=== PATIENT | female | born 1935 | race Caucasian/White ===

== ENCOUNTER 2018-04-27 19:13 | Inpatient (IN) | payer MEDICARE, OTHER ==
--- NOTE | 2018-04-27 20:00 | ED ---
Palpitations / Dysrhythmia - HPI Summary HPI Summary: This is scribe Kelechi Diaz documenting for attending Ishmael Nichole MD. A 82 y/o female presents to ED c/o generalized sickness and rapid heart rate. As per triage, "Pt brought in by daughter for concerns of "not feeling right" States she's felt "jittery" since this morning. Reports feeling heart racing during dinner time. States she cheched her pulse with an oximeter and states HR 177. States shortly after HR went down to 86". According to the patient she was feeling weak today and experienced intermittent palpitations. Pt denies any chest pain or SOB. As per nursing staff, when attending patient, she had a brief episode of tachycardia of 107 BPM, possible SVT, however, now seems to be regular. PMHx of DM, HTN and high cholesterol. I, Dr. Nichole, personally performed the services described in this documentation as scribed in my presence and it is both accurate and complete. - History of Current Complaint Chief Complaint: EDDysrhythmPalp Time Seen by Provider: 04/27/18 19:41 Hx Obtained From: Patient Onset/Duration: Sudden Onset, Lasting Hours, Still Present Timing: Constant Character: Fast Aggravating: Nothing Alleviating: Nothing Associated Signs & Symptoms: Negative - Allergy/Home Medications Allergies/Adverse Reactions: Allergies Allergy/AdvReac Type Severity Reaction Status Date / Time No Known Allergies Allergy Verified 04/27/18 19:26 PMH/Surg Hx/FS Hx/Imm Hx Endocrine/Hematology History: Reports: Hx Diabetes Cardiovascular History: Reports: Hx Hypertension - Cancer History Hx Chemotherapy: No Hx Radiation Therapy: No Infectious Disease History: No Infectious Disease History: Denies: Traveled Outside the [place] in Last 30 Days - Family History Known Family History: Positive: Hypertension, Diabetes - Social History Alcohol Use: None Substance Use Type: Reports: None Smoking Status (MU): Never Smoked Tobacco Review of Systems Positive: Other - POSITIVE: generalized sickness. Negative: Fever Positive: Other - POSITIVE: fast HR. Negative: Chest Pain Negative: Shortness Of Breath Positive: Weakness All Other Systems Reviewed And Are Negative: Yes Physical Exam - Summary Physical Exam Summary: VITAL SIGNS: Reviewed. GENERAL: Patient is a skinny female who is lying comfortable in the stretcher. Patient is not in any acute respiratory distress. HEAD AND FACE: No signs of trauma. No ecchymosis, hematomas or skull depressions. No sinus tenderness. EYES: PERRLA, EOMI x 2, No injected conjunctiva, no nystagmus. EARS: Hearing grossly intact. Ear canals and tympanic membranes are within normal limits. MOUTH: Oropharynx within normal limits. NECK: Supple, trachea is midline, no adenopathy, no JVD, no carotid bruit, no c- spine tenderness, neck with full ROM. CHEST: Symmetric, no tenderness at palpation LUNGS: Clear to auscultation bilaterally. No wheezing or crackles. CVS: Regular rate and rhythm, S1 and S2 present, no murmurs or gallops appreciated. ABDOMEN: Soft, non-tender. No signs of distention. No rebound no guarding, and no masses palpated. Bowel sounds are normal. EXTREMITIES: FROM in all major joints, no edema, no cyanosis or clubbing. NEURO: Alert and oriented x 3. No acute neurological deficits. Speech is normal and follows commands. SKIN: Dry and warm Triage Information Reviewed: Yes Vital Signs On Initial Exam: Initial Vitals Temp Pulse Resp BP Pulse Ox 98.7 F 88 16 148/46 99 04/27/18 19:21 04/27/18 19:21 04/27/18 19:21 04/27/18 19:21 04/27/18 19:21 Vital Signs Reviewed: Yes Diagnostics - Vital Signs Vital Signs Temp Pulse Resp BP Pulse Ox 04/27/18 19:43 84 25 186/77 96 04/27/18 19:42 88 24 97 04/27/18 19:21 98.7 F 88 16 148/46 99 - Laboratory Result Diagrams: 04/27/18 20:20 04/27/18 20:21 Lab Statement: Any lab studies that have been ordered have been reviewed, and results considered in the medical decision making process. - Radiology CXR Radiology Interpretation Completed By: ED Physician - No acute process. Pending official report. - EKG 1930 Cardiac Rate: Tachycardia - 114 BPM EKG Rhythm: Atrial Fibrillation EKG Interpretation: LBBB Course/Dx - Course Course Of Treatment: A 82 y/o female presents to ED c/o generalized sickness and rapid heart rate. A CXR revealed no acute process. A EKG revealed a A-fib rate of 114 BPM, LBBB. In the ED course, the patient recieved Magnesium Sulfate , Lopressor and Aspirin. Exam was unremarkable. Patient care was discussed with hospitalist, Dr. Farias, who accepts patient for admission. Patient will be admitted with a diagnosis of paroxysmal atrial fibrillation, tachycardia and LBBB. Patient is agreeable with this plan. - Diagnoses Provider Diagnoses: LBBB (left bundle branch block), Paroxysmal atrial fibrillation, Tachycardia - Physician Notifications Discussed Care Of Patient With: Silva Farias Time Discussed With Above Provider: 21:04 Instructed by Provider To: Other - Accepts patient for admission. Discharge - Sign-Out/Discharge Documenting (check all that apply): Patient Departure - ADMIT - Discharge Plan Condition: Stable Disposition: ADMITTED TO [facility] Referrals: Neo Helms MD [Primary Care Provider] -
[2018-04-27] MEDS: Metoprolol Tartrate IV* 1 MG/ML 5 ML VIAL IV ONE ×2 (20:09→20:48)
[2018-04-27 20:51] LABS: ABS Basophils 0 10^3/ul (0-0.2); ABS Eosinophils 0 10^3/ul (0-0.6); ABS Lymphocytes 1.5 10^3/ul (1.0-4.8); ABS Monocytes 0.7 10^3/ul (0-0.8); ABS Neutrophils 4.6 10^3/ul (1.5-7.7); ABS Nucleated RBC 0 10^3/ul; Eosinophil % 0.7 % (0-6); Hematocrit 32 % (35-47); Hemoglobin 10.6 g/dl (12.0-16.0); Lymphocyte % 22.2 % (25-47); Mean Corpuscular HGB Conc 33 g/dl (31-36); Mean Corpuscular Hemoglobin 27 pg (27-31); Mean Corpuscular Volume 82 fL (80-97); Mean Platelet Volume 8.3 um3 (7.4-10.4); Nucleated Red Blood Cells % 0.1; Platelet Count 249 10^3/ul (150-450); Red Blood Count 3.88 10^6/ul (4.00-5.40); Red Cell Distribution Width 16 % (10.5-15); White Blood Count 6.9 10^3/ul (3.5-10.8)
[2018-04-27 20:58] LABS: INR 0.96 (0.77-1.02)
[2018-04-27] MEDS ORDERED: Aspirin 81 mg CHEW TAB* 81 MG TAB.CHEW PO ONE (21:05)
[2018-04-27] MEDS ORDERED: Magnesium Sulf 4 GM/100 ML IV* 4,000 MG/100 ML BAG IVPB ONE (21:08)
[2018-04-27] MEDS ORDERED: Senna TAB PO PRN (21:54)
[2018-04-27] MEDS ORDERED: Docusate CAP* 100 MG PO PRN (21:54)
[2018-04-27] MEDS ORDERED: Ondansetron INJ* 2 MG/ML VIAL IV PRN (21:54)
[2018-04-27] MEDS ORDERED: Acetaminophen TAB* 325 MG PO PRN (21:54)
[2018-04-27] MEDS ORDERED: Al Hydrox/Mg Hydrox/Simet LIQ* 30 ML UDC PO PRN (21:54)
[2018-04-27] MEDS ORDERED: oxyCODONE/Acetamin 5/325 MG* TAB PO PRN (21:57)
[2018-04-27] MEDS ORDERED: Dextrose 50% Syringe 50 ML* 25 GM/50 ML SYRINGE IV PUSH PRN (21:59)
--- NOTE | 2018-04-27 23:25 | HP ---
CC: Neo Helms MD* HISTORY AND PHYSICAL: DATE OF ADMISSION: 04/27/18 TIME OF EVALUATION: 2200. PRIMARY CARE PHYSICIAN: Neo Helms MD CHIEF COMPLAINT: Palpitations and weakness. HISTORY OF PRESENT ILLNESS: This is an 82-year-old female with past medical history of hypertension and diabetes, who presents to the emergency room, was not feeling right with palpitations. She states this morning she felt weak and anxious, jittery. She felt her pulses, in the morning it was in the 80s and then in the evening, after dinner she checked her heart rate because the palpitations had gotten worse and she noticed her heart rate to be 177, which prompted her to come to the emergency room for further evaluation. In the emergency room, the patient was found to have a left bundle branch block with runs of SVT as well. She denies any chest pain or shortness of breath. No lightheadedness, no dizziness. No presyncopal symptoms. She still feels slightly anxious. Three days ago, she had episode of diarrhea after getting constipated and taking some bowel meds that has since resolved. No nausea, vomiting. No abdominal pain. No urinary symptoms. No fevers, no URI symptoms. She is on hydrochlorothiazide and Lasix. She has been on the Lasix for the past 2 to 4 weeks and she has been losing weight with a water pill and her weight was 164 before the Lasix, now it is down to 150. She states she has a remote history of rapid heart rate in the past, otherwise review of systems is negative. In the emergency room, when the patient had a run of what appears to be SVT with aberrancy, the nurse had her bear down and it quickly resolved back into lower heart rate. The patient was also found to have a low magnesium of 1.1 and was started on IV magnesium. PAST MEDICAL HISTORY: 1. History of arthritis. 2. Diabetes. 3. Hypertension. 4. Hyperlipidemia. 5. History of remote rapid heart rate in the past. 6. GERD. MEDICATIONS: 1. Vitamin B12 1000 mg p.o. b.i.d. 2. Iron 18 mg daily. 3. Metformin 1000 mg p.o. b.i.d. 4. Lisinopril/hydrochlorothiazide 20/12.5 tab b.i.d. or 2 tabs in the morning, unclear. 5. Amlodipine 5 mg daily. 6. Aspirin 81 mg daily. 7. Oxycodone/acetaminophen 5/325 one tab every 4 hours as needed. 8. Omeprazole 20 mg daily. 9. Atorvastatin 10 mg daily. 10. Lasix 40 mg half a tab Friday, Friday, Friday. 11. Atenolol half a tab Friday, , Friday. ALLERGIES: No known drug allergies. FAMILY HISTORY: Mother at age 72, father at age 60 from heart attack. SOCIAL HISTORY: The patient lives at home with her . She ambulates with a walker and a cane. Her healthcare proxy is her daughter, Nilam. No smoking, alcohol, or illicit drug use. Code status is full code. REVIEW OF SYSTEMS: A 14-point review of systems as mentioned in the HPI, otherwise negative. PHYSICAL EXAMINATION GENERAL: No acute distress, resting comfortable with both her daughters at the bedside. VITAL SIGNS: Temp is 98.7, pulse rate 83, respiratory rate 20, oxygen saturation 95% on room air, blood pressure 132/74. HEENT: Head: Normocephalic. Pupils are equal and reactive, anicteric. Oropharynx: Mucous membranes are moist. NECK: Supple. No lymphadenopathy. RESPIRATORY: Diminished breath sounds. No wheezes, rhonchi, or rales. CARDIAC: Irregularly irregular rate and rhythm. Soft systolic murmur heard throughout. ABDOMEN: Soft, nontender, nondistended. EXTREMITIES: No clubbing, cyanosis. Trace edema, +1 DPs. NEUROLOGIC: Alert and oriented x3. No gross focal neurologic deficits. DIAGNOSTIC STUDIES/LAB DATA: White count 6.9, hemoglobin 10.6, hematocrit 32, platelets 249. INR is 0.96. , potassium 4.6, chloride 91, bicarb 24, BUN 18, creatinine 0.91, glucose 160, magnesium 1.1. BNP is 304. Troponin 0.01. Radiographic data: Chest x-ray wet read is unremarkable. Some mildly prominent interstitial markings. EKG shows left bundle branch block atrial fibrillation, irregular rhythm with strips that are showing what appears to be SVT with aberrancy. ASSESSMENT AND PLAN: This is an 82-year-old female with past medical history of hypertension and diabetes, who presents to the emergency room with palpitations, found to have left bundle branch block with intermittent runs of supraventricular tachycardia with mag of 1.1. Palpitations. Assessment: This appears to be a new left bundle and atrial fibrillation. I do not have old EKGs to compare to. She does not have any chest pain. She is also having runs of SVT. I suspect that this is related to her low magnesium in the setting of hydrochlorothiazide and Lasix use. Plan: We will admit her to [address] [place] [address] for observation. She has been started on 4 g of mag. We will repeat her mag in the morning, start her on 800 mg of magnesium daily. We will hold her hydrochlorothiazide and her Lasix for now. I discussed more continuous daily dose of atenolol at a lower dose as she states that she was having issues with bradycardia and that is why they did half a dose 3 times a day. We will do the 12.5 daily and watch her heart rate closely. We will hold her amlodipine in the setting of bradycardia and just do beta blockers for now and continue her on the lisinopril for her elevated blood pressure and baby aspirin and continue to trend her troponin. Check an echocardiogram as well. Will hold off anticoagulating her at this time but may need to be. Consider cardiology consultation in the AM. CHRONIC MEDICAL PROBLEMS: 1. Hypertension. As above, going to hold her hydrochlorothiazide and Lasix. Continue lisinopril, hold amlodipine and continue atenolol 12.5 p.o. daily. 2. Diabetes. We will place her on lispro sliding scale. Hold her oral agents. 3. GERD. Continue omeprazole. 4. Hyperlipidemia. Continue atorvastatin. 5. FEN. Place her on a diabetic diet. 6. DVT prophylaxis. The patient scores high risk. Place her on heparin subcu t.i.d. 7. Code status. Full code. PATIENT TIME: Greater than 50 minutes was spent doing the history and physical , more than half the time was spent in direct patient contact. [id number]/[facility] #: [id number] BRYANT
[2018-04-28] MEDS: Heparin VIAL(*) 5000 UNITS/ML VIAL (FIVE THOUSAND) SUBCUT SCH ×4 (00:20→21:14)
[2018-04-28] MEDS: Omeprazole CAP* 20 MG PO SCH (05:54)
[2018-04-28 06:04] LABS: ABS Basophils 0.1 10^3/ul (0-0.2); ABS Eosinophils 0.2 10^3/ul (0-0.6); ABS Monocytes 0.8 10^3/ul (0-0.8); ABS Neutrophils 3.8 10^3/ul (1.5-7.7); ABS Nucleated RBC 0 10^3/ul; Eosinophil % 2.3 % (0-6); Hematocrit 35 % (35-47); Hemoglobin 11.7 g/dl (12.0-16.0); Mean Corpuscular HGB Conc 33 g/dl (31-36); Mean Corpuscular Hemoglobin 27 pg (27-31); Mean Corpuscular Volume 83 fL (80-97); Mean Platelet Volume 7.8 um3 (7.4-10.4); Nucleated Red Blood Cells % 0; Platelet Count 258 10^3/ul (150-450); Red Blood Count 4.25 10^6/ul (4.00-5.40); Red Cell Distribution Width 16 % (10.5-15); White Blood Count 6.8 10^3/ul (3.5-10.8)
[2018-04-28 06:26] LABS: EGFR Non-African American 65.7 (>60)
--- NOTE | 2018-04-28 07:38 | RAD ---
HISTORY: weakness COMPARISONS: None VIEWS: 1: frontal portable view of the chest at 8:40 PM. The patient is slightly obliqued to the left. FINDINGS: LINES AND TUBES: None. CARDIOMEDIASTINAL SILHOUETTE: The cardiac silhouette is enlarged. The cardiomediastinal silhouette is otherwise normal for portable technique. PLEURA: The costophrenic angles are sharp. No pleural abnormalities are noted. LUNG PARENCHYMA: The lungs are clear. ABDOMEN: The upper abdomen is clear. There is no subphrenic gas. BONES AND SOFT TISSUES: Degenerative changes are noted of the shoulders and spine. IMPRESSION: CARDIOMEGALY. NO ACTIVE CARDIOPULMONARY DISEASE. R2
[2018-04-28] MEDS ORDERED: Atenolol TAB* 25 MG PO SCH (09:00)
[2018-04-28] MEDS ORDERED: amLODIPine TAB* 5 MG PO SCH (09:00)
[2018-04-28] MEDS: Insulin LISPRO* 1 UNITS UNIT SUBCUT SCH ×3 (09:48→18:13)
[2018-04-28] MEDS: Lisinopril TAB* 10 MG PO SCH (10:01)
[2018-04-28] MEDS: Aspirin 81 mg CHEW TAB* 81 MG TAB.CHEW PO SCH (10:01)
[2018-04-28] MEDS: Metoprolol Tartrate TAB* 25 MG PO SCH ×2 (10:02→21:14)
[2018-04-28] MEDS: Magnesium Oxide TAB* 400 MG PO SCH (10:02)
--- NOTE | 2018-04-28 10:16 | PN ---
Subjective Date of Service: 04/28/18 Interval History: Pt c/o fast HR x 48H. Noted to be in HR in 160's when she is ambulatory(telem shows SVT vs. A. flutter). no c/o CP/SOB. Had been on Lasix 3-4 seeks total due to leg edema and had lost total of 20 lbs Objective Active Medications: Acetaminophen (Tylenol Tab*) 650 mg PO Q4H PRN PRN Reason: FEVER/PAIN Al Hydrox/Mg Hydrox/Simethicone (Maalox Plus*) 30 ml PO Q6H PRN PRN Reason: INDIGESTION Aspirin (Aspirin 81 Mg Chew Tab*) 81 mg PO DAILY [facility] Last Admin: 04/28/18 10:01 Dose: 81 mg Atorvastatin Calcium (Lipitor*) 10 mg PO 1700 [facility] Dextrose (D50w Syringe 50 Ml*) 12.5 gm IV PUSH .FOR FS < 60 - SS PRN PRN Reason: FS < 60 Docusate Sodium (Colace Cap*) 100 mg PO BID PRN PRN Reason: CONSTIPATION Heparin Sodium (Porcine) (Heparin Vial(*)) 5,000 units SUBCUT Q8HR [facility] Last Admin: 04/28/18 05:54 Dose: 5,000 units Insulin Human Lispro (Humalog*) 0 units SUBCUT AC [facility]; Protocol Last Admin: 04/28/18 09:48 Dose: 4 units Lisinopril (Prinivil Tab*) 20 mg PO DAILY [facility] Last Admin: 04/28/18 10:01 Dose: 20 mg Magnesium Oxide (Magox 400 Tab*) 800 mg PO DAILY [facility] Last Admin: 04/28/18 10:02 Dose: 800 mg Metoprolol Tartrate (Lopressor Tab*) 12.5 mg PO Q12HR [facility] Last Admin: 04/28/18 10:02 Dose: 12.5 mg Omeprazole (Prilosec Cap*) 20 mg PO 0600 [facility] Last Admin: 04/28/18 05:54 Dose: 20 mg Ondansetron HCl (Zofran Inj*) 4 mg IV Q4H PRN PRN Reason: NAUSEA/VOMITING Oxycodone/Acetaminophen (Percocet 5/325 Tab*) 1 tab PO Q4H PRN PRN Reason: PAIN Senna (Senokot Tab*) 1 tab PO BID PRN PRN Reason: CONSTIPATION Vital Signs - 8 hr 04/28/18 04/28/18 03:55 07:36 Temperature 97.7 F 98.3 F Pulse Rate 86 91 Respiratory 16 16 Rate Blood Pressure 150/67 145/59 (mmHg) O2 Sat by Pulse 96 98 Oximetry Oxygen Devices in Use Now: None Appearance: 82 yo F in nAD, aAOx3 Eyes: No Scleral Icterus, PERRLA Ears/Nose/Mouth/Throat: NL Teeth, Lips, Gums, Mucous Membranes Moist Neck: NL Appearance and Movements; NL JVP, Trachea Midline Respiratory: Symmetrical Chest Expansion and Respiratory Effort, Clear to Auscultation Cardiovascular: NL Sounds; No Murmurs; No JVD, RRR Abdominal: NL Sounds; No Tenderness; No Distention, No Hepatosplenomegaly Lymphatic: No Cervical Adenopathy Extremities: No Edema, No Clubbing, Cyanosis Skin: No Rash or Ulcers, No Nodules or Sclerosis Neurological: Alert and Oriented x 3, NL Muscle Strength and Tone Result Diagrams: 04/28/18 05:48 04/28/18 05:48 Assess/Plan/Problems-Billing Assessment: 82 yo F with h/o "fast HR" several years ago, HTN, DM2 was placed on Lasix approx 3 weeks ago and now presents with episodes of tachycardia and new LBBB - Patient Problems (1) Tachycardia Comment: appears to be either SVT or A. flutter Echo pending consulted Dr. Phillip Mendieta repleted Atenolol d/c'd and started lopressor BID (2) LBBB (left bundle branch block) Comment: unknow baseline, records requested (3) HTN (hypertension) Comment: controlled with lisinopril Norvasc stopped (4) DM2 (diabetes mellitus, type 2) Comment: metformin held, cont ISS (5) Electrolyte abnormality Comment: hypomagnesemia and hyponatremia-consequence of diuresis Lasix stopped. Na improving Mg repleted (6) DVT prophylaxis Comment: HSQ Status and Disposition: OBV will be changed to inpatient
--- NOTE | 2018-04-28 12:25 | ECHO ---
Patient: SALMA PADILLA [facility] Rec#: [id number] : 1935 Date: 04/28/2018 Age: 82y Height: 155 cm / 61.0 in Weight: 68 kg / 149.9 lbs Sex: F BSA: 1.67 Room#: [facility] Admit Date#: 04/27/2018 Type: Inpatient Referring: Silva Farias Reading: Osmel Fisher MD [employer]: [place] RDCS CC: Neo Helms MD Transthoracic Echocardiogram Indication: Abnormal EKG, SVT BP: 150/67 HR: 100 Rhythm: Tachycardia Findings History: Soft systolic murmur, DM, HTN, HLD. Technical Comments: The study quality is fair. Completed at 1020. Left Ventricle: The left ventricular chamber size is normal. Mild concentric left ventricular hypertrophy is observed. Mild global hypokinesis of the left ventricle is observed. There is mildly decreased left ventricular systolic function. The estimated ejection fraction is 45-50%. There is a left ventricular septal wall motion abnormality observed, possibly due to the presence of a left bundle branch block. The assessment of diastolic function is non-diagnostic. Left Atrium: The left atrium is mildly dilated. Right Ventricle: Moderator Band present. The right ventricular cavity size is normal. The right ventricular global systolic function is low normal. Right Atrium: The right atrium is moderately dilated. Aortic Valve: The aortic valve is trileaflet. The aortic valve leaflets are mildly thickened. There is no evidence of aortic regurgitation. There is no evidence of aortic stenosis. Mitral Valve: There is mitral annular calcification. The mitral valve leaflets are mildly thickened. There is mild to moderate mitral regurgitation. There is no evidence of mitral stenosis. Tricuspid Valve: The tricuspid valve leaflets are normal. There is mild to moderate tricuspid regurgitation. The right ventricular systolic pressure is estimated at 44 mmHg. There is evidence of mild to moderate pulmonary hypertension. There is no tricuspid stenosis. Pulmonic Valve: The pulmonic valve appears normal. There is a trace pulmonic regurgitation. There is no pulmonic stenosis. Pericardium: There is no significant pericardial effusion. Aorta: There is no dilatation of the ascending aorta. There is no dilatation of the aortic arch. The aortic root is normal in size. Pulmonary Artery: The main pulmonary artery appears normal. Venous: The inferior vena cava appears normal in size. There is a greater than 50% respiratory change in the inferior vena cava dimension. Summary: There was not any prior study for comparison. Conclusions Mild global hypokinesis of the left ventricle is observed. There is mildly decreased left ventricular systolic function. The estimated ejection fraction is 45-50%. There is a left ventricular septal wall motion abnormality observed, possibly due to the presence of a left bundle branch block. The right ventricular global systolic function is low normal. There is no evidence of aortic stenosis. There is mild to moderate mitral regurgitation. There is mild to moderate tricuspid regurgitation. There is evidence of mild to moderate pulmonary hypertension. There is no significant pericardial effusion. Measurements Name Value Normal Range RVIDd (AP) 2D 3.5 cm (0.9 - 2.6) RVDdMajor (2D) 4.3 cm (2.2 - 4.4) RAd ISD 4CH 5.8 cm (3.4 - 4.9) RA (A4C)W 4.5 cm (2.9 - 4.6) IVSd (2D) 1.3 cm (0.6 - 1) LVPWd (2D) 1.1 cm (0.6 - 1) LVIDd (2D) 4.1 cm (3.6 - 5.4) LVIDs (2D) 2.7 cm - LV FS (2D) 34 % (25 - 45) Aortic Annulus 2 cm (1.4 - 2.6) Ao root diameter (2D) 3 cm (2.1 - 3.5) Ascending Ao 2.9 cm (2.1 - 3.4) Aortic arch 2.3 cm (1.8 - 3.4) LA dimension (AP) 2D 4.3 cm (2.3 - 3.8) LAd ISD 4CH 5.5 cm (2.9 - 5.3) LA ISD 4CH W 4.2 cm (2.5 - 4.5) Name Value Normal Range LA ESV BP (A/L) index 35 ml/m2 - Name Value Normal Range MV E-wave Vmax 1 m/sec - MV deceleration time 158 msec - LV septal e' Vmax 0.05 m/sec - LV lateral e' Vmax 0.1 m/sec - LV E:e' septal ratio 20 ratio - LV E:e' lateral ratio 10 ratio - Name Value Normal Range AV Vmax 1.5 m/sec - AV VTI 23.3 cm - AV peak gradient 9 mmHg - AV mean gradient 4 mmHg - LVOT Vmax 1 m/sec - LVOT VTI 17.1 cm - LVOT peak gradient 4 mmHg - LVOT mean gradient 2 mmHg - ALICIA Vmax 0.6 m/sec - Name Value Normal Range TR Vmax 3.2 m/sec - TR peak gradient 41 mmHg - RAP 3 mmHg - RVSP 44 mmHg - IVC diameter 1.9 cm - Name Value Normal Range PV Vmax 1 m/sec - PV peak gradient 4 mmHg -
[2018-04-28] MEDS ORDERED: Atorvastatin* 10 MG TAB PO SCH (17:00)
--- NOTE | 2018-04-28 20:27 | CONS ---
CC: Dr. Neo Helms CARDIOLOGY CONSULTATION: DATE OF CONSULT: 04/28/18 INDICATION FOR CONSULTATION: SVT. HISTORY OF PRESENT ILLNESS: The patient is an 82-year-old female with a history of hypertension and diabetes who was admitted to the hospital with palpitations. The patient states that a couple of wee ks ago, she was having increased edema in her lower extremities. The patient also was having some de gree of bradycardia on her atenolol. The patient was on atenolol for unknown reasons. The patient's atenolol was slowly weaned off and she was started on diuretic therapy. She was originally started on 20 mg every day. She lost about 9 pounds and then her primary care physician instructed her to go down to 20 mg 3 times a week. The patient continued to lose weight with a low dose diuretic. The p atient states that yesterday she was feeling palpitations and lightheaded. Ultimately, she decided t o come to the emergency room. On arrival to the emergency room, she was in wide complex tachycardia that could have been ventricular tachycardia; however, the patient does have an underlying left bundl e-branch block. It was clear that it was an SVT at 170 beats per minute. The patient eventually slo wed down to a normal sinus rhythm at 87 beats per minute. In speaking with the patient today, she porter s no complaints. PAST MEDICAL HISTORY: Significant for diabetes, hypertension, hyperlipidemia, some distant history o f rapid heartbeat. OUTPATIENT MEDICATIONS: 1. Iron tablets 18 mg a day. 2. Metformin 1000 mg b.i.d. 3. Lisinopril and hydrochlorothiazide 20/12.5 mg b.i.d. 4. Amlodipine 5 mg a day. 5. Aspirin 81 mg a day. 6. Omeprazole 20 mg a day. 7. Atorvastatin 10 mg a day. 8. Lasix as directed. ALLERGIES: No known drug allergies. FAMILY HISTORY: Mother at 72 of natural causes. Father at 60 of a heart attack. SOCIAL HISTORY: She lives at home with her . Her daughter is very involved in her care. She denies any alcohol or tobacco use. PHYSICAL EXAM: Height is 5 feet and 1 inch, weight is 152 pounds. Temperature of 97.9, heart rate i s 88, blood pressure 149/88, respiratory rate is 18, oxygen saturation 98% on room air. Sclerae anic teric. Oropharynx is pink without erythema. Carotids are 2+ without bruits. JVD is normal. Thyroi d is normal. Cardiac Exam: S1, S2 without any murmurs, rubs or gallops. PMI is normal. Lungs are c lear to auscultation bilaterally. There is no dullness to percussion. Abdomen is soft, nontender, an d nondistended with normoactive bowel sounds. Extremities show no edema. She has 2+ pulses throughou t. The patient is awake, alert, and oriented. She moves all 4 extremities equally. DIAGNOSTIC STUDIES/LAB DATA: When she arrived, her sodium was 125, potassium 4.6, BUN 18, creatinine 0.9. Her magnesium level was 1.1. Troponin levels were again negative x2. TSH is 0.64. CBC is wi thin normal limits. The patient did get an echocardiogram today which showed low normal LV systolic function, ejection fr action of 45% to 50%. She does have septal asynchrony secondary to her left bundle-branch block. No significant valvular abnormalities. IMPRESSION AND PLAN: An 82-year-old female who was admitted to the hospital with supraventricular ta chycardia or atrial fibrillation at rapid heart rate up to 170 beats per minute. The patient is now in a normal sinus rhythm with left bundle- branch block. She has near normal LV function without any valvular abnormalities. It is my recommendation that the patient be off her atenolol altogether. I think it is reasonable to start amiodarone 200 mg b.i.d. for 7 days and then decrease it to 200 mg on ce a day. This will allow her to have antiarrhythmic effect without having a significant beta blocke r effect. The patient should be on magnesium supplementation. The patient will continue her low dose diuretic, perhaps 10 mg 3 times a week to control her lower extremity edema. The patient will be seen in followup. She will get a Holter monitor in 3 weeks and [facility]. This case was discussed with Dr. Horvath. [id number]/[facility] #: [id number]
[2018-04-28] MEDS: Amiodarone TAB* 200 MG PO SCH (21:13)
--- NOTE | 2018-04-28 21:37 | PN ---
Progress Note - Progress Note Date of Service: 04/28/18 Note: Patient requesting SCDs in place of Heparin SQ. Will change order.
[2018-04-29] MEDS: Omeprazole CAP* 20 MG PO SCH (06:01)
[2018-04-29] MEDS: Magnesium Oxide TAB* 400 MG PO SCH (09:50)
[2018-04-29] MEDS: Aspirin 81 mg CHEW TAB* 81 MG TAB.CHEW PO SCH (09:51)
[2018-04-29] MEDS: Amiodarone TAB* 200 MG PO SCH (09:51)
[2018-04-29] MEDS: Metoprolol Tartrate TAB* 25 MG PO SCH (09:52)
[2018-04-29] MEDS: Lisinopril TAB* 10 MG PO SCH (09:52)
[2018-04-29] MEDS: Insulin LISPRO* 1 UNITS UNIT SUBCUT SCH ×2 (09:53→13:28)
[2018-04-29 12:26] VITALS: BP 113/59
--- NOTE | 2018-04-30 02:54 | DS ---
CC: Dr. Neo Helms; Dr. Fisher* DISCHARGE SUMMARY: DATE OF ADMISSION: 04/27/18 DATE OF DISCHARGE: To home, 04/29/18. PRIMARY CARE PROVIDER: Dr. Neo Helms. DISCHARGE DIAGNOSES: 1. Episodes of palpitations due to supraventricular tachycardia. 2. Left bundle-branch block. 3. Hypomagnesemia. 4. Hyponatremia. SECONDARY DIAGNOSES: 1. History of arthritis. 2. Diabetes. 3. Hypertension. 4. Hyperlipidemia. 5. History of gastroesophageal reflux disease. 6. History of palpitations in the past. MEDICATIONS AT DISCHARGE: Include: 1. Amiodarone 200 mg b.i.d. for a total of 6 days, then take 1 tablet daily thereafter. 2. Furosemide 10 mg every other day. 3. Magnesium oxide 400 mg daily. 4. Oxycodone/acetaminophen as taken previously on a p.r.n. basis. 5. Omeprazole 20 mg daily. 6. Metformin 1000 mg twice a day. 7. Lisinopril/hydrochlorothiazide 10/.5 two tablets daily. 8. Iron 18 mg daily. 9. Vitamin B12 at 2000 mcg daily. 10. Atorvastatin 10 mg daily. 11. Atenolol 12.5 mg every other day. 12. Aspirin 81 mg daily. LABORATORY DATA AND STUDIES PERFORMED DURING HOSPITAL STAY: Included: On 04/29/18, sodium of 129, potassium 4.4, chloride 96, carbon dioxide 25, BUN 19, creatinine 1.0. Magnesium at discharge was 1.8 and at admission, magnesium was 1.1. On 04/28/18, white blood cell count of 6.8, hemoglobin of 11.7, hematocrit of 35 , and platelets of 258. The patient's transthoracic echocardiogram obtained on 04/27/18 showed mild global hypokinesis of left ventricle with EF of 45% to 50% with left ventricular septal wall motion abnormality observed possibly due to the presence of left bundle-branch block. The right ventricular global systolic function is low normal. There was mild to moderate mitral regurgitation and moderate tricuspid regurgitation and mild to moderate pulmonary hypertension. CONSULTATIONS DURING THE HOSPITAL STAY: Included Dr. Fisher from Cardiology. HOSPITALIZATION COURSE: Mrs. Meyers is an 82-year-old female who noted leg edema in the past several weeks. She went to see her primary care provider and initially, she was on a dose of Lasix "1 tablet daily." At that point, she lost 10 pounds in a matter of 1 week. Her dose was then halved and the third week, her dose was changed to every other day. Despite that, the patient stated that she originally was up to 170 pounds and is down to 150 pounds. She came in complaining of palpitations that were occurring on the day of admission. She complains of no chest pain and no shortness of breath. She was noted to have severe hypomagnesemia with magnesium level of 1.1. She also was hyponatremic with a sodium level of 125. She was admitted to the hospital and was noted to have episodes of supraventricular tachycardia on monitor. She was also noted to have left bundle-branch block with unknown baseline. She was seen by Dr. Fisher in consultation who recommended treating the patient with amiodarone. She is supposed to take 200 mg p.o. t.i.d. for a total of 7 days and then switch to 200 mg daily. In approximately 3 weeks, she is to see Dr. Fisher for a followup. She also needs to have a Holter monitor placed by Dr. Fisher's office during that time. Please note that after the patient was started on amiodarone on the night of , she has no episodes of SVT. She continues to be in left bundle-branch block with occasionally PACs. She was furthermore asymptomatic and ready to go home. Please note that during the patient's hospital stay, her sodium fluctuated between 125, 131 down to 129 at the time of discharge. At this point, the patient's diuretics dose was not changed, but it is possible that hydrochlorothiazide is contributing to the hyponatremia and that may need to be changed in the future. For the time being, the patient's furosemide dose was modified to 10 mg every other day from 20 mg every other day. The patient also was asked to monitor her weight on a daily basis and if she loses too much weight, to hold the dose of the furosemide and to see her primary care provider for evaluation. PHYSICAL EXAM AT THE TIME OF DISCHARGE: Blood pressure 113/59, heart rate of 88 and regular, respiratory rate 20, oxygen saturation 100% on room air, temperature 97.5. General: The patient is a very pleasant 82-year-old female who is in no acute distress. Alert, awake, and oriented x3. HEENT: Head: Atraumatic, normocephalic. Eyes: Pupils are equal, reactive to light and accommodation. Oropharynx is clear. Mucosa moist. Neck: Supple. No JVD. No bruits bilaterally. Cardiovascular: Regular rate and rhythm. No murmur. Respiratory: Clear to auscultation bilaterally. Abdomen: Soft, nontender. Bowel sounds are present in all 4 quadrants. Extremities: There is trace bilateral ankle edema. Pulses are +2 bilaterally. There is no clubbing or cyanosis. Neuro Evaluation: Speech clear. Cranial nerves II through XII grossly intact. Motor strength is 5/5 bilaterally. Please note that this is a short summary of the patient's hospitalization. Please refer to further medical records for details. TIME SPENT: Approximately 45 minutes was spent on the patient's discharge. ADDENDUM TO DISCHARGE SUMMARY: ADDENDUM: Addendum to discharge summary dictated on 04/29/18. Please note that the patient's daughter came back to the hospital the day after discharge and noted the patient's weight was 146 pounds. The patient did not have any diuretics administered during the hospital stay despite that she lost additional couple of pounds of weight. Due to that, we decided to discontinue the hydrochlorothiazide part of this diuretic and discontinued this diuretic altogether and start the patient on lisinopril 20 mg daily. I also advised the patient to hold her Lasix for a couple of days and recheck her weight and start her Lasix if her weight is up to 150 pounds total. [id number]/[facility] #: [id number]/[facility] #: [id number] [facility]
--- NOTE | 2018-04-30 17:42 | DS ---
CC: Dr. Neo Helms DISCHARGE SUMMARY: ADDENDUM: Addendum to discharge summary dictated on 04/29/18. Please note that the patient's daughter came back to the hospital the day after discharge and noted t he patient's weight was 146 pounds. The patient did not have any diuretics administered during the h ospital stay despite that she lost additional couple of pounds of weight. Due to that, we decided to discontinue the hydrochlorothiazide part of this diuretic and discontinued this diuretic altogether and start the patient on lisinopril 20 mg daily. I also advised the patient to hold her Lasix for a couple of days and recheck her weight and start her Lasix if her weight is up to 150 pounds total. [id number]/[facility] #: [id number]
== END 2018-04-29 15:15 | disposition home or self-care (01) | DRG 309 ==
LOC: ED 19:13 → MEDTELE 21:54 → OBSVTOIN 04-28 12:48
PROVIDERS: ADMIT Pediatrics; ATTEND Internal Medicine
DX: I47.1 Supraventricular tachycardia (principal); E87.1 Hypo-osmolality and hyponatremia; I44.7 Left bundle-branch block, unspecified; E11.9 Type 2 diabetes mellitus without complications; I10 Essential (primary) hypertension; E78.5 Hyperlipidemia, unspecified; I48.0 Paroxysmal atrial fibrillation; M19.90 Unspecified osteoarthritis, unspecified site; K21.9 Gastro-esophageal reflux disease without esophagitis; K59.00 Constipation, unspecified; E83.42 Hypomagnesemia; I08.1 Rheumatic disorders of both mitral and tricuspid valves; I27.20 Pulmonary hypertension, unspecified; Z82.49 Family history of ischemic heart disease and other diseases of the circulatory system; Z83.3 Family history of diabetes mellitus; Z79.82 Long term (current) use of aspirin; Z79.84 Long term (current) use of oral hypoglycemic drugs
CPT/HCPCS: 36415; 71045; 80048; 80053; 83605; 83735; 83880; 84443; 84484; 85025; 85610; 85730; 93005; 93306; 99285; A9270-GY; G0378; J1644; J3475; J3490

== ENCOUNTER 2018-05-08 02:09 | Emergency (ER) | payer MEDICARE, OTHER ==
[2018-05-08] MEDS ORDERED: Apixaban* 5 MG TAB PO ONE (02:40)
[2018-05-08 02:41] LABS: ABS Basophils 0.1 10^3/ul (0-0.2); ABS Eosinophils 0.2 10^3/ul (0-0.6); ABS Lymphocytes 3.1 10^3/ul (1.0-4.8); ABS Monocytes 0.8 10^3/ul (0-0.8); ABS Neutrophils 4.3 10^3/ul (1.5-7.7); ABS Nucleated RBC 0 10^3/ul; Eosinophil % 2.1 % (0-6); Hematocrit 36 % (35-47); Hemoglobin 11.8 g/dl (12.0-16.0); Lymphocyte % 36.2 % (25-47); Mean Corpuscular HGB Conc 33 g/dl (31-36); Mean Corpuscular Hemoglobin 28 pg (27-31); Mean Corpuscular Volume 84 fL (80-97); Mean Platelet Volume 7.8 um3 (7.4-10.4); Nucleated Red Blood Cells % 0; Platelet Count 265 10^3/ul (150-450); Red Blood Count 4.22 10^6/ul (4.00-5.40); Red Cell Distribution Width 16 % (10.5-15); White Blood Count 8.4 10^3/ul (3.5-10.8)
[2018-05-08] MEDS ORDERED: Metoclopramide IV* 5 MG/ML 2 ML VIAL IV ONE (02:45)
--- NOTE | 2018-05-08 02:47 | ED ---
HPI Cardiac - HPI Summary HPI Summary: Pt is a 82 year old female presenting to the ED with a chief complaint of heart palpitations. Pt has a recent onsent of afib as of 05/07 and is anxious about the Dx. The pt has a hx of diabetes and HTN. Pt states she has had some weakness in her legs since her [place] [facility] Pt denies cp, sob, headache, stomach pain, nausea, and vomiting, and denies a hx of cancer and strokes. Pt lives with her daughter. - History of Current Complaint Chief Complaint: EDDysrhythmPalp Stated Complaint: IRREGULAR HR Time Seen by Provider: 05/08/18 02:12 Hx Obtained From: Patient Onset/Duration: Started Hours Ago Timing: Lasting Hours Initial Severity: Mild Current Severity: None Pain Intensity: 0 Pain Scale Used: 0-10 Numeric Chest Pain Radiates: No Character: Fast, Other: - palpitations Aggravating Factor(s): Other: - anxiety - Additional Pertinent History Primary Care Physician: DIMA - Allergy/Home Medications Allergies/Adverse Reactions: Allergies Allergy/AdvReac Type Severity Reaction Status Date / Time No Known Allergies Allergy Verified 05/08/18 02:15 Home Medications: Home Medications Amiodarone TAB* [Cordarone Tab*] 200 mg PO DAILY 05/08/18 [History Confirmed ] Apixaban* [Eliquis] 5 mg PO BID 05/08/18 [History Confirmed 05/08/18] PMH/Surg Hx/FS Hx/Imm Hx Previously Healthy: No Endocrine/Hematology History: Reports: Hx Diabetes Cardiovascular History: Reports: Hx Hypercholesterolemia, Hx Hypertension, Other Cardiovascular Problems/Disorders - DIABETIC, HIGH CHOLESTEROL, EDEMA ( MEDS) Sensory History: Reports: Hx Contacts or Glasses - reading Denies: Hx Hearing Aid Opthamlomology History: Reports: Hx Contacts or Glasses - reading Neurological History: Denies: Other Neuro Impairments/Disorders - strokes - Cancer History Hx Chemotherapy: No Hx Radiation Therapy: No Infectious Disease History: No Infectious Disease History: Denies: Traveled Outside the [place] in Last 30 Days - Family History Known Family History: Positive: Hypertension, Diabetes - Social History Alcohol Use: None Substance Use Type: Reports: None Hx Tobacco Use: No Smoking Status (MU): Never Smoked Tobacco Review of Systems Positive: Palpitations. Negative: Chest Pain Negative: Shortness Of Breath Negative: Abdominal Pain, Vomiting, Nausea Positive: Other - weakness in bilat legs All Other Systems Reviewed And Are Negative: Yes Physical Exam - Summary Physical Exam Summary: Appearance: Well appearing, no pain distress Skin: warm, dry, reflects adequate perfusion Head/face: normal Eyes: EOMI, ISAI ENT: normal Neck: supple, non-tender, no JVD Respiratory: CTA, breath sounds present Cardiovascular: Pulses strong, heart is tachycardic, irregularly irregular rhythm. Abdomen: non-tender, soft Bowel Sounds: present Musculoskeletal: normal, strength/ROM intact Neuro: normal, sensory motor intact, A&Ox3 Triage Information Reviewed: Yes Vital Signs On Initial Exam: Initial Vitals Pulse Resp BP Pulse Ox 122 16 179/98 98 05/08/18 02:12 05/08/18 02:12 05/08/18 02:12 05/08/18 02:12 Vital Signs Reviewed: Yes Diagnostics - Vital Signs Vital Signs Temp Pulse Resp BP Pulse Ox 05/08/18 02:21 107 22 163/82 99 05/08/18 02:15 97.8 F 121 24 178/99 98 05/08/18 02:12 122 16 179/98 98 - Laboratory Lab Results: Lab Results 05/08/18 Range/Units 02:27 WBC 8.4 (3.5-10.8) 10^3/ul RBC 4.22 (4.00-5.40) 10^6/ul Hgb 11.8 L (12.0-16.0) g/dl Hct 36 (35-47) % MCV 84 (80-97) fL MCH 28 (27-31) pg MCHC 33 (31-36) g/dl RDW 16 H (10.5-15) % Plt Count 265 (150-450) 10^3/ul MPV 7.8 (7.4-10.4) um3 Neut % (Auto) 51.4 (38-83) % Lymph % (Auto) 36.2 (25-47) % Arenac % (Auto) 9.6 H (0-7) % Eos % (Auto) 2.1 (0-6) % Baso % (Auto) 0.7 (0-2) % Absolute Neuts (auto) 4.3 (1.5-7.7) 10^3/ul Absolute Lymphs (auto) 3.1 (1.0-4.8) 10^3/ul Absolute Monos (auto) 0.8 (0-0.8) 10^3/ul Absolute Eos (auto) 0.2 (0-0.6) 10^3/ul Absolute Basos (auto) 0.1 (0-0.2) 10^3/ul Absolute Nucleated RBC 0 10^3/ul Nucleated RBC % 0 Result Diagrams: 05/08/18 02:27 05/08/18 02:27 Lab Statement: Any lab studies that have been ordered have been reviewed, and results considered in the medical decision making process. - Radiology No standard instances Xray Interpretation: No Acute Changes - Chest x-ray Radiology Interpretation Completed By: ED Physician - Results pending radiologist confirmation. - EKG No standard instances Cardiac Rate: Tachycardia - RVR. bpm 106 ST Segment: Non-Specific Re-Evaluation - Re-Evaluation 1 Re-Evaluation Time: 03:44 Change: Improved Comment: Pt feels better, HR is still typical of atrial fibrillation but is now in the 80s. Second Eval Re-Evaluation Time: 04:51 Change: Improved Comment: Pt feels better, HR is now in the 60s, pt is ready to go home. Disposition - Course Course Of Treatment: Patient with a recent history of atrial fibrillation placed on anticoagulant. She is currently on amiodarone. She has a history of being hypomagnesemic and also hyponatremic. Today this is also true. She was given beta vinicius and her heart rate came down into the 80s. After magnesium and fluids her heart rate came down into the 60s. She was feeling well and was able to be discharged. She will follow closely today with her primary care physician, operational communication chief. - Differential Dx - Cardiopulmonary Differential Diagnoses - Cardiopulmonary: Other - Atrial fibrillation, PE, OH, malignant arrhythmia, electrolyte abnormality - Diagnoses Provider Diagnoses: Hyponatremia, Hypomagnesemia, Rapid atrial fibrillation - Critical Care Time Critical Care Time: 30-74 min - CCT is EXCLUSIVE of separately billable procedures Discharge - Sign-Out/Discharge Documenting (check all that apply): Patient Departure - Discharge Plan Condition: Improved Disposition: HOME Patient Education Materials: A-fib (Atrial Fibrillation) (ED) Referrals: Osmel Fisher MD [Medical Doctor] - Neo Helms MD [Primary Care Provider] - Additional Instructions: Double your magnesium for the next 4 days. Call your doctor first thing this morning for follow-up. Call Dr. Fisher to follow-up promptly. Return if worse, new symptoms or other concerns as discussed. - Billing Disposition and Condition Condition: IMPROVED Disposition: Home - Attestation Statements Document Initiated by Fermínibe: Yes Documenting Scribe: Silva Peres Provider For Whom Mer is Documenting (Include Credential): Asher Carlson MD. Scribe Attestation: I, Silva Peres, scribed for Asher Carlson MD. on 05/08/18 at 0533. Scribe Documentation Reviewed: Yes Provider Attestation: The documentation as recorded by the scribeSilva accurately reflects the service I personally performed and the decisions made by me, Asher Carlson MD.
[2018-05-08 02:57] LABS: EGFR Non-African American 49.5 (>60)
[2018-05-08] MEDS ORDERED: NS 0.9% 500 ML* 500 ML IV ONE (03:42)
[2018-05-08] MEDS ORDERED: Magnesium Sulfate IV* 2 GM in NS 0.9% 100 ML* 100 ML IV ONE (03:42)
[2018-05-08] MEDS ORDERED: Magnesium Sulfate 2 GM IV* 2 GM/50 ML BAG IV ONE (04:00)
[2018-05-08 04:55] VITALS: BP 145/56
--- NOTE | 2018-05-08 08:13 | RAD ---
HISTORY: palpitations COMPARISONS: April 27, 2018 VIEWS: 1: frontal portable view of the chest at 2:20 AM FINDINGS: LINES AND TUBES: None. CARDIOMEDIASTINAL SILHOUETTE: The cardiomediastinal silhouette is normal for portable technique. PLEURA: The costophrenic angles are sharp. No pleural abnormalities are noted. LUNG PARENCHYMA: The lungs are clear. The airspace disease described in the left upper lobe on the preliminary report is felt to represent artifact from costochondral calcification of the first rib. ABDOMEN: The upper abdomen is clear. There is no subphrenic gas. BONES AND SOFT TISSUES: No bone or soft tissue abnormalities are noted. IMPRESSION: NO ACTIVE CARDIOPULMONARY DISEASE. R2
== END 2018-05-08 05:12 | disposition home or self-care (01) ==
LOC: ED 02:09
DX: R00.2 Palpitations (principal); E87.1 Hypo-osmolality and hyponatremia; E83.42 Hypomagnesemia; I48.91 Unspecified atrial fibrillation; E11.9 Type 2 diabetes mellitus without complications; I10 Essential (primary) hypertension
CPT/HCPCS: 36415; 71045; 80053; 83605; 83735; 83880; 84484; 85025; 93005; 96374; 96375; 99284; J3475

== ENCOUNTER 2018-08-28 21:37 | Emergency (ER) | payer MEDICARE, OTHER ==
--- NOTE | 2018-08-28 23:14 | ED ---
Throat Pain/Nasal Congestion - HPI Summary HPI Summary: Patient on Eliquis complains of persistent bleeding from right ear after cleaning it with Q-tip swab. Denies any other symptoms, injury or pain. - History of Current Complaint Chief Complaint: EDEarPain Time Seen by Provider: 08/28/18 22:56 Hx Obtained From: Patient Onset/Duration: Sudden Onset Severity: Mild Associated Signs And Symptoms: Positive: Negative Cough: None - Allergies/Home Medications Allergies/Adverse Reactions: Allergies Allergy/AdvReac Type Severity Reaction Status Date / Time No Known Allergies Allergy Verified 08/28/18 22:09 PMH/Surg Hx/FS Hx/Imm Hx Endocrine/Hematology History: Reports: Hx Anticoagulant Therapy, Hx Diabetes Cardiovascular History: Reports: Hx Hypercholesterolemia, Hx Hypertension, Other Cardiovascular Problems/Disorders - DIABETIC, HIGH CHOLESTEROL, EDEMA ( MEDS) History: Reports: Hx Dialysis Sensory History: Reports: Hx Contacts or Glasses - reading Denies: Hx Hearing Aid Opthamlomology History: Reports: Hx Contacts or Glasses - reading Neurological History: Denies: Other Neuro Impairments/Disorders - strokes Psychiatric History: Denies: Hx Autism - Cancer History Hx Chemotherapy: No Hx Radiation Therapy: No Infectious Disease History: No Infectious Disease History: Denies: Traveled Outside the [place] in Last 30 Days - Family History Known Family History: Positive: Hypertension, Diabetes - Social History Alcohol Use: None Substance Use Type: Reports: None Hx Tobacco Use: No Smoking Status (MU): Never Smoked Tobacco Review of Systems Constitutional: Negative Eyes: Negative Positive: Other Cardiovascular: Negative Respiratory: Negative Gastrointestinal: Negative Genitourinary: Negative Musculoskeletal: Negative Skin: Negative Neurological: Negative Psychological: Normal All Other Systems Reviewed And Are Negative: Yes Physical Exam - Summary Physical Exam Summary: Blood clot in the right ear partially obscuring right TM. No active bleeding. Triage Information Reviewed: Yes Vital Signs On Initial Exam: Initial Vitals Temp Pulse Resp BP Pulse Ox 98.2 F 63 18 154/83 98 08/28/18 22:04 08/28/18 22:04 08/28/18 22:04 08/28/18 22:04 08/28/18 22:04 Vital Signs Reviewed: Yes Appearance: Positive: Well-Appearing Skin: Positive: Warm Head/Face: Positive: Normal Head/Face Inspection Eyes: Positive: Normal ENT: Positive: Other - Blood clot in right eardrum. Physical exam of eardrum difficult with clot in place. No active bleeding at this time. Neck: Positive: Supple Respiratory/Lung Sounds: Positive: Clear to Auscultation Cardiovascular: Positive: Normal Abdomen Description: Positive: Nontender Musculoskeletal: Positive: Normal Neurological: Positive: Normal Psychiatric: Positive: Normal AVPU Assessment: Alert - Harlan Coma Scale Best Eye Response: 4 - Spontaneous Best Motor Response: 6 - Obeys Commands Best Verbal Response: 5 - Oriented Coma Scale Total: 15 Diagnostics - Vital Signs Vital Signs Temp Pulse Resp BP Pulse Ox 08/28/18 22:04 98.2 F 63 18 154/83 98 - Laboratory Lab Statement: Any lab studies that have been ordered have been reviewed, and results considered in the medical decision making process. EENT Course/Dx - Course Course Of Treatment: Patient on Eliquis complains of persistent bleeding from right ear after cleaning it with Q-tip swab. Denies any other symptoms, injury or pain. Physical exam:Blood clot in the right ear partially obscuring right TM. No active bleeding. Advised patient no treatment at this time bleeding appears to have self resolved. Advised patient return if bleeding continue or worsen. Patient understands and approves of plan. - Diagnoses Provider Diagnoses: Bleeding from right ear Discharge - Sign-Out/Discharge Documenting (check all that apply): Patient Departure - Discharge Plan Condition: Stable Disposition: HOME Patient Education Materials: Blood Thinners (ED) Referrals: Neo Helms MD [Primary Care Provider] - Additional Instructions: Over time bleeding in ear should self resolve. Return to ED if bleeding continues or worsens. - Billing Disposition and Condition Condition: STABLE Disposition: Home
[2018-08-28 23:59] VITALS: BP 175/77
== END 2018-08-28 23:58 | disposition home or self-care (01) ==
LOC: ED 21:37
DX: H92.21 Otorrhagia, right ear (principal); E11.9 Type 2 diabetes mellitus without complications; E78.00 Pure hypercholesterolemia, unspecified; Z79.01 Long term (current) use of anticoagulants
CPT/HCPCS: 99281

== ENCOUNTER → 2018-08-29 11:17 | Emergency (ER) | payer MEDICARE, BC ==
[~2018-08-29 11:17] MED LIST: Neomyc/Polym/HC 1% OTIC SUSP* **OTIC ONE; Neomyc/Polym/HC 1% OTIC SUSP* **OTIC RIGHT EAR ONE
--- NOTE | 2018-08-29 12:58 | ED ---
Throat Pain/Nasal Congestion - HPI Summary HPI Summary: This patient is a 82 year old [facility] family with a chief complaint of ear muffling since yesterday. Patient states that since yesterday, her right ear has felt muffled. She attempted to clean and pick at her ear with both a Q-tip and her finger, which resulted in bleeding. This morning, she noticed the muffled sensation was much more pronounced and presented to the ED. Patient denies any pain. Symptoms aggravated by nothing. Symptoms alleviated by nothing. Patient denies fever. Patient is diabetic and on blood thinners. - History of Current Complaint Chief Complaint: EDEarPain Time Seen by Provider: 08/29/18 12:31 Hx Obtained From: Patient Onset/Duration: Lasting Days, Still Present Severity: Mild Associated Signs And Symptoms: Positive: Negative - fver Cough: None - Allergies/Home Medications Allergies/Adverse Reactions: Allergies Allergy/AdvReac Type Severity Reaction Status Date / Time No Known Allergies Allergy Verified 08/29/18 11:29 PMH/Surg Hx/FS Hx/Imm Hx Previously Healthy: No Endocrine/Hematology History: Reports: Hx Anticoagulant Therapy, Hx Diabetes Cardiovascular History: Reports: Hx Hypercholesterolemia, Hx Hypertension, Other Cardiovascular Problems/Disorders - DIABETIC, HIGH CHOLESTEROL, EDEMA ( MEDS) History: Reports: Hx Dialysis Sensory History: Reports: Hx Contacts or Glasses - reading Denies: Hx Hearing Aid Opthamlomology History: Reports: Hx Contacts or Glasses - reading Neurological History: Denies: Other Neuro Impairments/Disorders - strokes Psychiatric History: Denies: Hx Autism - Cancer History Hx Chemotherapy: No Hx Radiation Therapy: No Infectious Disease History: No Infectious Disease History: Denies: Traveled Outside the [place] in Last 30 Days - Family History Known Family History: Positive: Hypertension, Diabetes - Social History Alcohol Use: None Substance Use Type: Reports: None Hx Tobacco Use: No Smoking Status (MU): Never Smoked Tobacco Review of Systems Negative: Fever ENT: Other - muffled hearing, bleeding from ear. All Other Systems Reviewed And Are Negative: Yes Physical Exam - Summary Physical Exam Summary: Appearance: Well appearing, no pain distress Skin: warm, dry, reflects adequate perfusion Head/face: normal Eyes: EOMI, ISAI ENT: mucous membranes moist, Left ear is normal, no mastoid bleeding or tenderness, Dried blood and fresh blood clot in right ear that obscures TM Neck: supple, non-tender Respiratory: CTA, breath sounds present, no respiratory distress Cardiovascular: RRR, pulses symmetrical Abdomen: non-tender, soft Bowel Sounds: present Musculoskeletal: normal, strength/ROM intact Neuro: normal, sensory motor intact, A&Ox3 Triage Information Reviewed: Yes Vital Signs On Initial Exam: Initial Vitals Temp Pulse Resp BP Pulse Ox 98.3 F 71 14 162/52 98 08/29/18 11:31 08/29/18 11:31 08/29/18 11:31 08/29/18 11:31 08/29/18 11:31 Vital Signs Reviewed: Yes Procedures - Procedure Summary Procedure Summary: Irrigation of the right ear: Reason: Blood clot in the ear. Description: A blood clot was irrigated out of the right ear canal with 20 cc of saline through a 20-gauge angiocatheter. A tiny amount of active bleeding persisted. Patient then had 3 cc of 0.5% bupivacaine with epinephrine instilled into the ear. This was let sit for 10 minutes. There is a small abrasion noted in the canal. The bupivacaine was removed and Cortisporin drops were placed in the ear. The patient was then observed for some time and no active bleeding was observed. She tolerated this well without compensation. Diagnostics - Vital Signs Vital Signs Temp Pulse Resp BP Pulse Ox 08/29/18 11:31 98.3 F 71 14 162/52 98 - Laboratory Lab Statement: Any lab studies that have been ordered have been reviewed, and results considered in the medical decision making process. EENT Course/Dx - Course Course Of Treatment: Nurse's notes reviewed. Patient is on oral anticoagulant for atrial fibrillation. She scraped her ear and had bleeding in it. There is a clot in the canal. She is unable to hear. There is no active bleeding. I irrigated out the clot and there is small amount of bleeding. This was stopped with bupivacaine with epi in the ear and then Cortisporin drops. No further bleeding was observed after. Of observation. Discharged in good condition on Cortisporin - Diagnoses Provider Diagnoses: Anticoagulant effect, Otitis externa Discharge - Sign-Out/Discharge Documenting (check all that apply): Patient Departure - Discharge Plan Condition: Improved Disposition: HOME Patient Education Materials: Otitis Externa (ED) Referrals: Neo Hemls MD [Primary Care Provider] - Additional Instructions: Continue drops provided 3-4 times per day as discussed. Return with bleeding, increased pain, worse or other concerns. Call your family doctor on Friday to schedule prompt follow-up. - Billing Disposition and Condition Condition: IMPROVED Disposition: Home - Attestation Statements Document Initiated by Mer: Yes Documenting Scribe: Luis Morrison Provider For Whom Mer is Documenting (Include Credential): Asher Carlson MD Scribe Attestation: ILuis scribed for Asher Carlson MD on 08/29/18 at 1518. Scribe Documentation Reviewed: Yes Provider Attestation: The documentation as recorded by the Luis mitchell accurately reflects the service I personally performed and the decisions made by , Asher Carlson MD Status of Scrpinae Document: Viewed
[2018-08-29 14:50] VITALS: BP 161/73
== END | disposition home or self-care (01) ==
LOC: ED 11:17
DX: H60.90 Unspecified otitis externa, unspecified ear (principal); Z79.01 Long term (current) use of anticoagulants; I48.91 Unspecified atrial fibrillation; I10 Essential (primary) hypertension; E11.9 Type 2 diabetes mellitus without complications
CPT/HCPCS: 99282; A9270-GY

== ENCOUNTER 2019-03-23 16:38 | Emergency (ER) | payer MEDICARE, BC ==
--- OUTSIDE RECORDS SUMMARY | 2019-03-23 16:59 | XMS REPORT | Continuity of Care Document ---
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 Neo Helms MD Primary Care Physician Unavailable Payers Date Identification Numbers Payment Provider Subscriber Policy Number: [id number] Medicare Tamika Meyers PayID: [id number] [facility] [address] [place] [address] Policy Number: [id number] [facility] Tamika Meyers PayID: [id number] [address] [place] [address] Problems Active Problems Provider Date Anemia Monisha Alexandre PA-C Onset: 02/09/2019 Essential hypertension Monisha Alexandre PA-C Onset: 02/11/2019 Type 2 diabetes mellitus Monisha Alexandre PA-C Onset: 02/11/2019 Social History Type Date Description Comments Sex Unknown Tobacco Use Start: Unknown Patient has never smoked Smoking Status Reviewed: 02/09/19 Patient has never smoked Allergies, Adverse Reactions, Alerts Description No Known Drug Allergies Medications Active Medications SIG Qnty Indications Ordering Provider Date Amiodarone HCL Brand, Osmel Rojas, 100mg Tablets Eliquis Take 1 Tablet By Unknown 2.5mg Tablets Mouth Twice A Day Metformin HCL Take 1 Tablet By Unknown 500mg Mouth Twice A Day Tablets Atorvastatin Calcium Take 1 Tablet By Unknown 10mg Mouth Once A Day Tablets Omeprazole Take 1 Capsule By Unknown 20mg Capsules Mouth Every DR Morning Furosemide Take 1/2-1 Tablet Unknown 20mg Tablets By Mouth Every Other Day Lisinopril Take 1 Tablet By Unknown 20mg Tablets Mouth Every Day Iron 2 tabs daily Unknown 18mg Tablets ER Magnesium Oxide 2 daily Unknown 400mg Tablets Oxycodone-Acetaminophe prn Unknown n 5-325mg Tablets Vital Signs Date Vital Result Comment 02/09/2019 11:23am Height 61 inches 5'1" Weight 163.00 lb BP Systolic 186 mmHg BP Diastolic 69 mmHg Heart Rate 64 /min BMI (Body Mass Index) 30.8 kg/m2 Results Test Date Facility Test Result H/L Range Note Laboratory test [facility] Clotest SEE RESULT 1 finding 9 BELOW Laboratory test [facility] Surgical SEE RESULT 2 finding 9 Pathology BELOW Order SOB X 3 ([facility]) [facility] SOB [facility] [facility] NEG 9 [facility] [place] [address] [phone] SOB 2ND Sample ([facility]) NEG SOB 3RD Sample ([facility]) NEG Laboratory test 01/26/2019 [facility] Hemoglobin A1c (!) <pending> finding 1 SEE RESULT BELOW Name: TAMIKA MEYERS : [address]: Alfa Paz MD Acct: [id number] Unit: [id number] AGE: 83 Location: ENDO Re02/19/19 SEX: F Status: REG REF SPEC: [id number] CHANTELLE: 02/19/19-[address] [facility] [address]: Alfa Paz MD REQ: [id number] RECD: 02/19/19 STATUS: RYANNE ARGUELLES DR: Neo Helms MD _ SOURCE[facility] ORDERED: Clotest Procedure Result Reported Site Clotest Final 02/20/19658 ML Clotest Negative * ML - Main Lab . END OF REPORT DEPARTMENT OF PATHOLOGY, [address] [place] [address] Reginaldo Sweeney M.D. Director [facility] # [id number] 2 SEE RESULT BELOW Name: TAMIKA MEYERS : [address]: Alfa Paz MD Acct: [id number] Unit: [id number] AGE: 83 Location: ENDO Re02/19/19 SEX: F Status: DEP REF SPEC: [id number] CHANTELLE: 02/19/[address] [facility] [address]: Alfa Paz MD REQ: [id number] RECD: 02/19/19 STATUS: ROBB ARGUELLES DR: Neo Helms MD _ ORDERED: LEVEL 4 FINAL DIAGNOSIS Small bowel, duodenum, biopsy: -- Small bowel mucosa with normal villous architecture and no significant pathologic abnormality. CLINICAL HISTORY Anemia POST-OPERATIVE DIAGNOSIS EGD: esophagus - normal; gastric - normal, biopsy; duodenum - normal, biopsy GROSS DESCRIPTION The specimen is received in formalin labeled, Biopsy Duodenum, and consists of two branch-pink irregular soft tissue fragments averaging 0.3 x 0.2 x 0.2 cm which are submitted entirely in one cassette. Signed by and Reported on: Reginaldo Sweeney MD 1544 END OF REPORT DEPARTMENT OF PATHOLOGY, [address] [place] [address] Reginaldo Sweeney M.D. Director [facility] # [id number] Encounters Type Date Location Provider Dx Diagnosis Office Visit 02/09/2019 [facility] Monisha [place] D64.9 Anemia, 11:15a [facility] unspecified Z79.01 group home (current) use of anticoagulants
--- OUTSIDE RECORDS SUMMARY | 2019-03-23 16:59 | XMS REPORT | Continuity of Care Document ---
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 Neo Helms MD Primary Care Physician Unavailable Payers Date Identification Numbers Payment Provider Subscriber Policy Number: [id number] Medicare Tamika Meyers PayID: [id number] [facility] [address] [place] [address] Policy Number: [id number] [facility] Employees Tamika Meyers PayID: [id number] [address] [place] [address] Problems Active Problems Provider Date Anemia Monisha [...] Test Result H/L Range Note Laboratory test [facility] Clotest SEE RESULT 1 finding 9 BELOW Laboratory test [facility] Surgical SEE RESULT 2 finding 9 Pathology BELOW Order SOB X 3 ([facility]) [facility] SOB 1St [facility] NEG 9 [facility] ([facility] [place] [address] [phone] SOB 2ND Sample ([facility]) NEG SOB 3RD Sample ([facility]) NEG Laboratory test 01/26/2019 [facility] Hemoglobin A1c (!) <pending> finding 1 SEE RESULT BELOW Name: TAMIKA MEYERS : [address]: Alfa Paz MD Acct: [id number] Unit: [id number] AGE: 83 Location: ENDO Re02/19/19 SEX: F Status: REG REF SPEC: [id number] CHANTELLE: 02/19/19-1150 [facility] [address]: Alfa Paz MD REQ: [id number] RECD: 02/19/19 STATUS: RYANNE ARGUELLES DR: Neo Helms MD _ SOURCE: [facility]: ORDERED: Clotest Procedure Result Reported Site Clotest Final 02/20/19658 ML Clotest Negative * ML - Main Lab . END OF REPORT DEPARTMENT OF PATHOLOGY, [address] [place] [address] Reginaldo Sweeney M.D. Director [facility] # [id number] 2 SEE RESULT BELOW Name: TAMIKA MEYERS : [address]: Alfa Paz MD Acct: [id number] Unit: [id number] AGE: 83 Location: ENDO Re02/19/19 SEX: F Status: DEP REF SPEC: [id number] CHANTELLE: 02/19/19 [facility] [address]: Alfa Paz MD REQ: [id number] RECD: 02/19/19 STATUS: ROBB ARGUELLES DR: Neo [...] 1544 END OF REPORT DEPARTMENT OF PATHOLOGY, [address] [place] [address] Reginaldo Sweeney M.D. Director [facility] # [id number] Encounters Type Date Location Provider Dx Diagnosis Office Visit 02/09/2019 [facility]enter[facility] Monisha [place] D64.9 Anemia, 11:15a [facility]-C unspecified Z79.01 jail (current) use of anticoagulants
--- OUTSIDE RECORDS SUMMARY | 2019-03-23 16:59 | XMS REPORT | Continuity of Care Document ---
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 Sample ([facility]) [place] [address] [phone] SOB 2ND Sample ([facility]) NEG SOB 3RD Sample ([facility]) NEG Laboratory test 01/26/2019 [facility] Hemoglobin A1c (!) <pending> finding CMP(!) 01/26/2019 [facility] Sodium(!) <pending> Potassium(!) <pending> Chloride Serum/Plasma(!) <pending> Carbon Dioxide Ser/Plasm(!) <pending> BUN - Urea Nitrogen(!) <pending> Calcium Ser/Plasma Mass/Vol(!) <pending> Creatinine Serum Mass/Vol(!) <pending> Glucose Serum(!) <pending> BUN/Creatinine Ratio(!) <pending> Albumin Serum/Plasma(!) <pending> Alkaline Phosphatase(!) <pending> Bilirubin Total Mass/Vol(!) <pending> Ast - Sgot <pending> Alt - SGPT <pending> Protein Total <pending> 1 SEE RESULT BELOW Name: TAMIKA MEYERS : [address]: Alfa Paz MD Acct: [id number] Unit: [id number] AGE: 83 Location: ENDO Re02/19/19 SEX: F Status: REG REF SPEC: [id number] CHANTELLE: 02/19/19-11[address] [facility] [address]: Alfa Paz MD REQ: [id number] RECD: 02/19/19 STATUS: RYANNE ARGUELLES DR: Neo Helms MD _ SOURCE: GAS ANTRUM SPDESC: ORDERED: Clotest Procedure Result Reported Site Clotest Final 02/20/19- 658 ML Clotest Negative * ML - Main Lab . END OF REPORT DEPARTMENT OF PATHOLOGY, [address] [place] [address] Reginaldo Sweeney M.D. Director [facility] # [id number] Encounters Type Date Location Provider Dx Diagnosis Office Visit 02/09/2019 [facility]enter[facility] Monisha [place] D64.9 Anemia, 11:15a [facility] PA-C unspecified Z79.01 custodial (current) use of anticoagulants
--- OUTSIDE RECORDS SUMMARY | 2019-03-23 16:59 | XMS REPORT | Continuity of Care Document ---
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 Employees Tamika Meyers PayID: [id number] [address] [place] [address] Problems Active Problems Provider Date Anemia Monisha [...] Date Facility Test Result H/L Range Note CBC No Diff 03/05/2019 [facility] White Blood Count 3.3 10^3/uL Low 3.5-10.8 Red Blood Count 4.66 10^6/uL N 3.70-4.87 Hemoglobin 10.7 g/dL Low 12.0-16.0 Hematocrit 35 % N 35-47 Mean Corpuscular Volume 76 fL Low 80-97 Mean Corpuscular Hemoglobin 23 pg Low 27-31 Mean Corpuscular HGB Conc 30 g/dL Low 31-36 Red Cell Distribution Width 20 % High 10-15 Platelet Count 183 10^3/uL N 150-450 Mean Platelet Volume 8.4 fL N 7.4-10.4 Laboratory test 02/19/2019 [facility] Clotest SEE RESULT 1 finding BELOW Laboratory test 02/19/2019 [facility] Surgical SEE RESULT 2 finding Pathology Order BELOW SOB X 3 ([facility]) 02/16/2019 [facility] SOB 1St Sample NEG [address] [facility] ([facility]) [place] [address] [phone] SOB 2ND Sample ([facility]) NEG SOB 3RD Sample ([facility]) NEG 1 SEE RESULT BELOW Name: TAMIKA MEYERS Myles : [address]: Alfa Paz MD Acct: [id number] Unit: [id number] AGE: 83 Location: ENDO Re02/19/19 SEX: F Status: REG REF SPEC: [id number] CHANTELLE: 02/19/[address] [facility] [address]: Alfa Paz MD REQ: [id number] RECD: 02/19/19 STATUS: RYANNE ARGUELLES DR: Neo Helms MD _ SOURCE: GAS ANTRUM SPDESC: ORDERED: Clotest Procedure Result Reported Site Clotest Final 02/20/19658 ML Clotest Negative * ML - Main Lab . END OF REPORT DEPARTMENT OF PATHOLOGY, [address] [place] [address] Reginaldo Sweeney M.D. Director [facility] # [id number] 2 SEE RESULT BELOW Name: TAMIKA MEYERS : [address]: Alfa Paz MD Acct: [id number] Unit: [id number] AGE: 83 Location: ENDO Re02/19/19 SEX: F Status: DEP REF SPEC: [id number] CHANTELLE: 02/19/191149 [facility] DR: Alfa Paz MD REQ: [id number] RECD: 02/19/19 STATUS: ORBB ARGUELLES DR: Neo Helms MD _ ORDERED: [...] 1544 END OF REPORT DEPARTMENT OF PATHOLOGY, [address] [place] [address] Reginaldo Sweeney M.D. Director [facility] # [id number] Procedures Date Code Description Status 02/19/2019 39114 EGD+Biopsy Single Or Multiple Completed Encounters Type Date Location Provider Dx Diagnosis Office Visit 02/09/2019 [facility]enter[facility] Monisha [place] D64.9 Anemia, 11:15a [facility] Alexandre unspecified Z79.01 jail (current) use of anticoagulants
[2019-03-23 18:06] LABS: ABS Lymphocytes 1.2 10^3/ul (1.0-4.8); ABS Monocytes 0.6 10^3/ul (0-0.8); ABS Neutrophils 3.2 10^3/ul (1.5-7.7); Eosinophil % 0.9 %; Hematocrit 27 % (35-47); Hemoglobin 8.5 g/dL (12.0-16.0); Lymphocyte % 23.4 %; Mean Corpuscular HGB Conc 32 g/dL (31-36); Mean Corpuscular Hemoglobin 24 pg (27-31); Mean Corpuscular Volume 76 fL (80-97); Mean Platelet Volume 8.4 fL (7.4-10.4); Nucleated Red Blood Cells % 0.1; Platelet Count 184 10^3/uL (150-450); Red Cell Distribution Width 19 % (10-15); White Blood Count 5.1 10^3/uL (3.5-10.8)
--- NOTE | 2019-03-23 18:08 | ED ---
Palpitations / Dysrhythmia - HPI Summary HPI Summary: This patient is a 83 year old F presenting [facility] accompanied by a female with a chief complaint of rapid HR and palpitations since yesterday at 1430. She states that she feels "alright" was nervous about her rapid HR. Patient notes she called Dr. Fisher, land measurer, who advised her to come to his office for an EKG. Office EKG was done, Dr. Fisher recommended the patient come to ED for cardioversion. She is on eliquis twice a day since May 2018 and was diagnosed with a-fib in April of 2018. Patient's female surgical instruments inspector reports that there were concerns that the patient had a low hemoglobin. There was an endoscopy done which is reported to have been negative. The patient rates the pain 0/10 in severity. Symptoms aggravated by nothing. Symptoms alleviated by nothing. Patient denies any fever, chills, erythema of eyes, sore throat, CP, SOB, cough, abdominal pain, N/V, dysuria, hematuria, myalgia, edema, CAPONE, rash, or dizziness. - History of Current Complaint Chief Complaint: EDDysrhythmPalp Time Seen by Provider: 03/23/19 17:23 Hx Obtained From: Patient, Family/Director Of Archives - female surgical instruments inspector Onset/Duration: Sudden Onset, Lasting Days - 1, Still Present Character: Fast, Pounding Aggravating: Nothing Alleviating: Nothing Associated Signs & Symptoms: Negative - Allergy/Home Medications Allergies/Adverse Reactions: Allergies Allergy/AdvReac Type Severity Reaction Status Date / Time No Known Allergies Allergy Verified 03/23/19 16:48 Home Medications: Home Medications Acetaminophen [Tylenol 8 Hour] 650 mg PO Q6HR PRN 03/23/19 [History Confirmed ] Amiodarone TAB* [Cordarone TAB*] 100 mg PO DAILY 03/23/19 [History Confirmed 06/03] Docusate Sodium [Dulcolax Stool Softener] 100 mg PO DAILY PRN 03/23/19 [History Confirmed 03/23/19] Iron 18 mg PO BID 03/23/19 [History Confirmed 03/23/19] Lisinopril TAB* [Prinivil TAB*] 20 mg PO DAILY 03/23/19 [History Confirmed 03/23] Omeprazole CAP (NF) [Prilosec CAP* 20 MG] 20 mg PO DAILY 03/23/19 [History Confirmed 03/23/19] metFORMIN* [Glucophage 500 MG TAB *] 500 mg PO BID 03/23/19 [History Confirmed 03/23/19] PMH/Surg Hx/FS Hx/Imm Hx Previously Healthy: No Endocrine/Hematology History: Reports: Hx Anticoagulant Therapy, Hx Diabetes Cardiovascular History: Reports: Hx Hypercholesterolemia, Hx Hypertension, Other Cardiovascular Problems/Disorders - DIABETIC, HIGH CHOLESTEROL, EDEMA ( MEDS) History: Reports: Hx Dialysis Sensory History: Reports: Hx Contacts or Glasses - reading Denies: Hx Hearing Aid Opthamlomology History: Reports: Hx Contacts or Glasses - reading Neurological History: Denies: Other Neuro Impairments/Disorders - strokes Psychiatric History: Denies: Hx Autism - Cancer History Hx Chemotherapy: No Hx Radiation Therapy: No - Surgical History Surgical History: None Infectious Disease History: No Infectious Disease History: Denies: Traveled Outside the [place] in Last 30 Days - Family History Known Family History: Positive: Hypertension, Diabetes - Social History Alcohol Use: None Hx Substance Use: No Substance Use Type: Reports: None Hx Tobacco Use: No Smoking Status (MU): Never Smoked Tobacco Do You Chew or Dip Tobacco: No Have You Chewed or Dipped Tobacco in the LAST YEAR: No Have You Smoked in the Last Year: No Review of Systems Negative: Fever, Chills Negative: Erythema Negative: Sore Throat Positive: Palpitations - positive - rapid HR. Negative: Chest Pain Negative: Shortness Of Breath, Cough Negative: Abdominal Pain, Vomiting, Nausea Negative: dysuria, hematuria Negative: Myalgia, Edema Negative: Rash Neurological: Other - negative - CAPONE, dizziness All Other Systems Reviewed And Are Negative: Yes Physical Exam - Summary Physical Exam Summary: Constitutional: Well-developed, Well-nourished, Alert. (-) Distressed Skin: Warm, Dry HENT: Normocephalic; Atraumatic Eyes: Conjunctiva normal Neck: Musculoskeletal ROM normal neck. (-) JVD, (-) Stridor, (-) Tracheal deviation Cardio: regular pulse, rapid rate Heart sounds normal; Intact distal pulses; The pedal pulses are 2+ and symmetric. Radial pulses are 2+ and symmetric. (-) Murmur Pulmonary/Chest wall: Effort normal. (-) Respiratory distress, (-) Wheezes, (-) Rales Abd: Soft, (-) tenderness, (-) Distension, (-) Guarding, (-) Rebound Musculoskeletal: (-) Edema Lymph: (-) Cervical adenopathy Neuro: Alert, Oriented x3 Psych: Mood and affect Normal Triage Information Reviewed: Yes Vital Signs On Initial Exam: Initial Vitals Temp Pulse Resp BP Pulse Ox 98.1 F 129 16 143/73 98 03/23/19 16:47 03/23/19 16:47 03/23/19 16:47 03/23/19 16:47 03/23/19 16:47 Vital Signs Reviewed: Yes Procedures - Procedure Summary Procedure Summary: PROCEDURE NOTE: PROCEDURE NAME: PROCEDURAL SEDATION SEDATION PROVIDER: TATE DAMIAN MD CARDIOVERSION PROVIDER: KEYANNA RAIN MD DETAILS: Informed consent for cardioversion and procedural sedation was obtained. The risks including hypotension and decreased respiratory drive, anaphylaxis, stroke were explained to the patient and her family and accepted. Emergency airway equipment was immediately available at the bedside, respiratory therapy was present at the bedside during the entirety of sedation. Waveform capnography was utilized. A total of 40 mg of 1 aliquots of propofol was administered by me, the patient tolerated sedation and the procedure well. She emerged uneventfully from sedation. - Additional Procedures Additional Procedures: cardioversion/defib Diagnostics - Vital Signs Vital Signs Temp Pulse Resp BP Pulse Ox 03/23/19 17:38 96 03/23/19 17:31 123 22 129/90 95 03/23/19 17:12 123 16 03/23/19 17:03 127 9 100 03/23/19 17:01 129 149/88 100 03/23/19 16:47 98.1 F 129 16 143/73 98 - Laboratory Result Diagrams: 03/23/19 17:57 03/23/19 17:57 Lab Statement: Any lab studies that have been ordered have been reviewed, and results considered in the medical decision making process. - EKG 1854 Cardiac Rate: Bradycardia - 56 BPM Summary of EKG Findings: 56 BPM, junctional rhythm, LBBB, no STEMI Course/Dx - Course Course Of Treatment: This patient is a 83 year old F presenting to [facility] accompanied by a female with a chief complaint of rapid HR and palpitations since yesterday at 1430. She states that she feels "alright" was nervous about her rapid HR. Patient notes she called Dr. Fisher, land measurer, who advised her to come to his office for an EKG. Office EKG was done, Dr. Fisher recommended the patient come to ED for cardioversion. She is on eliquis twice a day since May 2018 and was diagnosed with a-fib in April of 2018. Patient's female surgical instruments inspector reports that there were concerns that the patient had a low hemoglobin. There was an endoscopy done which is reported to have been negative. The patient rates the pain 0/10 in severity. Symptoms aggravated by nothing. Symptoms alleviated by nothing. Patient denies any fever, chills, erythema of eyes, sore throat, CP, SOB, cough, abdominal pain, N/V, dysuria, hematuria, myalgia, edema, CAPONE, rash, or dizziness. Physical exam shows rapid heart rate and regular pulse. Lab results show RBC 3.50, Hgb 8.5, Hct 27, MCV 76, MCH 24, RDW 19. EKG at 1854, 56 BPM, junctional rhythm, LBBB, no STEMI. During the ED course, the patient was given Versed and Diprivan. At 1809, Dr. Damian discussed the patient's case with Dr. Fisher, cardiology, who stated that the patient was in slow atrial flutter. Dr. Fisher recommends cardioversion. PROCEDURE NOTE: PROCEDURE NAME: PROCEDURAL SEDATION. SEDATION PROVIDER: TATE DAMIAN MD. CARDIOVERSION PROVIDER: KEYANNA RAIN MD. DETAILS: Informed consent for cardioversion and procedural sedation was obtained. The risks including hypotension and decreased respiratory drive, anaphylaxis, stroke were explained to the patient and her family and accepted. Emergency airway equipment was immediately available at the bedside, respiratory therapy was present at the bedside during the entirety of sedation. Waveform capnography was utilized. A total of 40 mg of 1 aliquots of propofol was administered by me , the patient tolerated sedation and the procedure well. She emerged uneventfully from sedation. Patient's anemia was suspected to be chronic. Patient recently had negative upper endoscopy. Dr. Damian does not believe she is actively bleeding. Final diagnosis is atrial flutter with rapid ventricular response. Patient has recovered from sedation. Patient will be discharged and is agreeable. Patient was told to follow up with Dr. Fisher, cardiology, in 3-5 days. - Diagnoses Provider Diagnoses: Atrial flutter with rapid ventricular response - Physician Notifications Discussed Care Of Patient With: Osmel Fisher Time Discussed With Above Provider: 18:09 Instructed by Provider To: Other - Dr. Damian discussed the patient's case with Dr. Fisher, cardiology, who stated that the patient was in slow atrial flutter. Dr. Fisher recommends cardioversion. - Critical Care Time Critical Care Time: 30-74 min - 45 min Discharge - Sign-Out/Discharge Documenting (check all that apply): Patient Departure - discharge Patient Received Moderate/Deep Sedation with Procedure: Yes - Discharge Plan Condition: Stable Disposition: HOME Patient Education Materials: Atrial Flutter (ED), Moderate Sedation (ED) Referrals: Neo Helms MD [Primary Care Provider] - Osmel Fisher MD [Medical Doctor] - 4 Days Additional Instructions: Follow up with Dr. Fisher, cardiology, within 3-5 days. Return to the ED for any new or worsening symptoms. - Attestation Statements Document Initiated by Scribe: Yes Documenting Scribe: Bon Sanchez Provider For Whom Scribe is Documenting (Include Credential): Dr. Tate Damian MD Scribe Attestation: I, Bon Hickey and Rhys Sanchez, scribed for Dr. Tate Damian MD on 03/23/19 at 1932. Status of Scribe Document: Ready
[2019-03-23] MEDS ORDERED: Midazolam* 1 MG/ML 2 ML VIAL (2 MG) IV SLOW PU ONE (18:11)
[2019-03-23] MEDS ORDERED: Propofol* 10 MG/ML 20 ML BTL IV PUSH ONE (18:16)
[2019-03-23 18:23] LABS: Albumin 3.3 g/dL (3.2-5.2); Albumin/Globulin Ratio 0.8 (1-3); BUN/Creatinine Ratio 17.3 (8-20); Calcium 8.9 mg/dL (8.6-10.3); EGFR African American 57.3 (>60); EGFR Non-African American 47.3 (>60); Globulin 4.1 g/dL (2-4); Magnesium 1.5 mg/dL (1.9-2.7); Potassium 4.4 mmol/L (3.5-5.0); Total Bilirubin 0.8 mg/dL (0.2-1.0); Total Protein 7.4 g/dL (6.4-8.9)
[2019-03-23 18:34] LABS: T4, Total 11.74 mcg/dL (6.09-12.23)
[2019-03-23] MEDS ORDERED: Propofol* 10 MG/ML 50 ML BTL IV PUSH ONE (18:35)
[2019-03-23 18:38] LABS: TSH (Thyroid Stimulating Horm) 1.24 mcIU/mL (0.34-5.60); Troponin I 0.03 ng/mL (<0.04)
--- NOTE | 2019-03-23 18:55 | ED ---
Progress - Progress Note Progress Note: Procedure Note: Cardioversion Pt cardioverted for atrial fibrilation after discussion with Dr. Damian. Consent obtained by Dr Damian for procedure. Pt was cardioverted x1 at 50 mya. Pt tolerated procedure well, heart rate in 60s after procedure, EKG obtained. Course/Dx - Diagnoses Provider Diagnoses: Atrial flutter with rapid ventricular response - Provider Notifications Instructed by Provider To: Other Discharge - Discharge Plan Referrals: Neo Helms MD [Primary Care Provider] - - Attestation Statements Document Initiated by Scribe: Yes Documenting Scribe: Rossy Wooten Provider For Whom Scribe is Documenting (Include Credential): Dr. Jamila Hunter Scribe Attestation: I, Rossy Wooten, scribed for Dr. Jamila Hunter on 03/23/19 at 1900.
[2019-03-23 19:36] VITALS: BP 97/56
== END 2019-03-23 19:30 | disposition home or self-care (01) ==
LOC: ED 16:38
DX: I48.92 Unspecified atrial flutter (principal); E11.9 Type 2 diabetes mellitus without complications; E78.00 Pure hypercholesterolemia, unspecified; I10 Essential (primary) hypertension; Z79.84 Long term (current) use of oral hypoglycemic drugs; Z79.899 Other long term (current) drug therapy
CPT/HCPCS: 36415; 80053; 83605; 83735; 84436; 84443; 84484; 85025; 93005; 96374; 96375; 99284; J2704

== ENCOUNTER 2019-05-25 06:54 | Inpatient (IN) | payer MEDICARE, BC ==
[2019-05-25] MEDS ORDERED: Diazepam TAB(*) 5 MG PO PRN (07:52)
[2019-05-25] MEDS ORDERED: ceFAZolin 2 GM in NS 100 ml - ONCE (Pharmacy Admix) IVPB ONE (08:00)
[2019-05-25] MEDS ORDERED: ceFAZolin 1 GM/10 ML flush(*) SYRINGE for pocket flush (cardiology) FLUSH ONE (08:00)
[2019-05-25] MEDS ORDERED: Midazolam* 1 MG/ML 5 ML VIAL (5 MG) ONE (08:21)
[2019-05-25] MEDS ORDERED: fentaNYL* 50 MCG/ML 2 ML VIAL (100 MCG VIAL) ONE (08:21)
[2019-05-25] MEDS ORDERED: Lidocaine 1% INJ* 10 MG/ML 30 ML SDV ONE (08:21)
[2019-05-25] MEDS ORDERED: Metoprolol Tartrate IV* 1 MG/ML 5 ML VIAL ONE (09:07)
[2019-05-25] MEDS: ceFAZolin VIAL(*) 1 GM in NS 0.9% 50 ML* 50 ML IVPB SCH (16:33)
[2019-05-25] MEDS: Furosemide TAB* 20 MG PO SCH (16:46)
[2019-05-25] MEDS: oxyCODONE/Acetamin 5/325 MG* TAB PO PRN (17:01)
[2019-05-25] MEDS: metFORMIN* 500 MG TAB PO SCH (22:24)
[2019-05-25] MEDS: Atorvastatin* 10 MG TAB PO SCH (22:24)
[2019-05-26] MEDS: oxyCODONE/Acetamin 5/325 MG* TAB PO PRN ×2 (00:18→04:08)
[2019-05-26] MEDS: ceFAZolin VIAL(*) 1 GM in NS 0.9% 50 ML* 50 ML IVPB SCH ×2 (00:18→08:10)
[2019-05-26] MEDS: Pantoprazole TAB * 40 MG TAB PO SCH (08:11)
[2019-05-26] MEDS: Amiodarone TAB* 200 MG PO SCH (08:11)
[2019-05-26] MEDS: Lisinopril TAB* 10 MG PO SCH ×2 (08:11→09:20)
[2019-05-26] MEDS: metFORMIN* 500 MG TAB PO SCH ×2 (08:11→20:28)
[2019-05-26] MEDS: Metoprolol Succinate XL TAB* 25 MG PO SCH ×2 (08:11→09:20)
[2019-05-26] MEDS ORDERED: Furosemide TAB* 40 MG PO SCH (09:00)
[2019-05-26] MEDS ORDERED: Amiodarone TAB* 200 MG PO SCH (09:00)
[2019-05-26] MEDS ORDERED: Influenza VAC *QUAD* 2019-20* 0.5 ML SYRINGE IM ONE (09:00)
--- NOTE | 2019-05-26 11:36 | OP ---
DATE OF OPERATION: 05/25/19 - ROOM #442 DATE OF : 33 SURGEON: Osmel Fisher MD ANESTHESIA: Local anesthesia with conscious sedation. PRE-OP DIAGNOSES: 1. Sick sinus syndrome. 2. Atrial flutter. 3. Tachy-calixto syndrome. POST-OP DIAGNOSES: 1. Sick sinus syndrome. 2. Atrial flutter. 3. Tachy-calixto syndrome. OPERATIVE PROCEDURE: Dual-chamber pacemaker implantation. ESTIMATED BLOOD LOSS: Nil. COMPLICATIONS: None. INDICATIONS: The patient is an 89-pfxl-lnf-year female with a history of atrial flutter. She has had multiple cardioversions in the past. When she has been cardioverted to normal sinus rhythm, she has a sinus rhythm at 50 beats per minute. When she is in atrial flutter, her heart beats at 120. Permanent pacemaker was recommended for maximization of medical therapy. DESCRIPTION OF PROCEDURE: The patient was brought to the procedure room in a fasting state. Informed consent had been obtained prior to the procedure. All labs had been reviewed. The patient was placed supine on the procedure table. Her left deltopectoral area was cleaned and draped in the usual fashion. 1% lidocaine was used for local anesthesia. The axillary vein was entered via Seldinger technique and a guidewire was placed. A second guidewire was placed using the same fashion. A 3.5 cm incision was made in the pectoral area. Blunt dissection was carried down to the pectoral fascia. A pocket was fashioned for the pacemaker. Over the first guidewire, a 7-Greek sheath introducer was placed, through which a right ventricular lead was advanced to the RV apex. The right ventricular lead is a Medtronic model 5076, serial number [id number]. It had a R-wave sensitivity of 5.6, impedance 937 ohms, threshold 2 volts at 0.5 msec. The ventricular lead was sutured to the pectoral fascia. Over the second guidewire, a 7-Greek sheath introducer was placed, through which a right atrial lead was advanced to the high right atrium. Initially, there was no sensing in the high right atrium. The lead was then placed to the lateral wall. Again, there was no sensing and there was no ability for electrical activity. The wire was placed in the ventricle and normal conduction test the integrity of the lead. The lead was eventually placed in the lateral wall with a pacing impedance of 635 ohms. Atrial lead was sutured to the pectoral fascia. Atrial lead is a Medtronic model 5076, serial number [id number]. A generator was attached appropriately to the atrioventricular lead, it was placed into the pocket. The surgical incision was closed in 3 layers. The pacemaker generator is a Medtronic model W1DR01, serial number [id number]. Device was placed into the pocket. The surgical incision was closed in 3 layers. The patient was returned to the holding area in stable condition. [id number]/[facility] #: [id number] BRYANT
--- NOTE | 2019-05-26 12:26 | PN ---
Progress Note - Progress Note Date of Service: 05/26/19 Note: Surgery Progress: S: patient seen at request of Dr. Castro for Left ptx, one day s/p pacemaker placement. She states she is comfortable at rest (no sig chest pain or SOB), but some mild pain and SOB w/ ambulation. She is a bit anxious. Daughter is present. Nasal O2 at [address] O: Vital Signs - 8 hr 05/26/19 05/26/19 05/26/19 06:00 07:34 07:40 Temperature 98.1 F Pulse Rate 109 Respiratory 16 18 Rate Blood Pressure 92/62 (mmHg) O2 Sat by Pulse 96 93 Oximetry 05/26/19 05/26/19 05/26/19 08:15 10:51 11:41 Temperature 99.1 F Pulse Rate 115 Respiratory 20 24 Rate Blood Pressure 130/80 128/67 (mmHg) O2 Sat by Pulse 99 Oximetry Gen: sitting up in chair; NAD Heart: mildly tachy; systolic murmur Lungs: clear;maybe a bit decreased Left upper anterior field cXray: (viewed personally and by Dr. Ash) Exam Date: 05/26/19 0800 ADM Status: ADM Lynn Order Information: CHEST PA & LAT 2 VWS Accession Number: [id number] CPT: 62682 HISTORY: S/P Device Implant COMPARISONS: May 25, 2019 VIEWS: 2: Frontal and lateral views of the chest. Chest x-ray shows FINDINGS: CARDIOMEDIASTINAL SILHOUETTE: The cardiac silhouette is enlarged. The cardiomediastinal silhouette is otherwise normal. ALEXEI: The alexei are normal. PLEURA: There is a small left apical pneumothorax. This is not clearly evident on the previous examination. LUNG PARENCHYMA: The lungs are clear. ABDOMEN: The upper abdomen is clear. There is no subphrenic gas. BONES AND SOFT TISSUES: No bone or soft tissue abnormalities are noted. OTHER: A left-sided dual-lead pacemaker is noted. IMPRESSION: SMALL LEFT APICAL PNEUMOTHORAX. CARDIOMEGALY. PRELIMINARY FINDINGS WERE DISCUSSED WITH THE AMY, THE NURSE CARING FOR THE PATIENT AT APPROXIMATELY 10:24 AM ON 2018. A: small L ptx s/p pacemaker placement, stable P: discussed w/ Dr. Ash; will repeat xray at 1400. Patient understands she may need a catheter tube (Heimlich) if ptx increases.
--- NOTE | 2019-05-26 14:22 | PN ---
Subjective Date of Service: 05/26/19 - CC: left CP/SOB Interval History: see handwritten progress note from CONVEX GRINDER OPERATOR in addition to this note. The patient felt well yesterday s/p dual chamber pacer. This AM had left axillary pain and tachypnea and low BP. CXR revealed pneumothorax Left apex, small. Medications Active Medications: Acetaminophen (Tylenol Tab*) 650 mg PO Q4H PRN PRN Reason: PAIN - MILD Amiodarone HCl (Cordarone Tab*) 200 mg PO QAM [facility] Last Admin: 05/26/19 08:11 Dose: 200 mg Atorvastatin Calcium (Lipitor*) 10 mg PO BEDTIME [facility] Last Admin: 05/25/19 22:24 Dose: 10 mg Diazepam (Valium Tab(*)) 5 mg PO ONCE PRN PRN Reason: ONCALL TO CATHLAB Docusate Sodium (Colace Cap*) 100 mg PO DAILY PRN PRN Reason: CONSTIPATION Furosemide (Lasix Tab*) 20 mg PO SuTuThSa@0900 [facility] Last Admin: 05/25/19 16:46 Dose: 20 mg Furosemide (Lasix Tab*) 40 mg PO MoWeFr@0900 [facility] Last Admin: 05/26/19 08:11 Dose: 40 mg Lisinopril (Prinivil Tab*) 20 mg PO [facility] Last Admin: 05/26/19 09:20 Dose: Not Given Metformin HCl (Glucophage*) 500 mg PO BID [facility] Last Admin: 05/26/19 08:11 Dose: 500 mg Metoprolol Succinate (Toprol Xl Tab*) 12.5 mg PO [facility] Last Admin: 05/26/19 09:20 Dose: Not Given Oxycodone/Acetaminophen (Percocet 5/325 Tab*) 1 tab PO Q4H PRN PRN Reason: PAIN - MODERATE Last Admin: 05/26/19 04:08 Dose: 1 tab Pantoprazole Sodium (Protonix Tab*) 40 mg PO DAILY [facility] Last Admin: 05/26/19 08:11 Dose: 40 mg Objective Vital Signs: Temp Pulse Resp BP Pulse Ox 99.1 F 115 24 128/67 99 05/26/19 11:41 05/26/19 11:41 05/26/19 11:41 05/26/19 11:41 05/26/19 11:41 Vital Signs - 8 hr 05/26/19 05/26/19 05/26/19 07:34 07:40 08:15 Temperature 98.1 F Pulse Rate 109 Respiratory 16 18 20 Rate Blood Pressure 92/62 (mmHg) O2 Sat by Pulse 93 Oximetry 05/26/19 05/26/19 10:51 11:41 Temperature 99.1 F Pulse Rate 115 Respiratory 24 Rate Blood Pressure 130/80 128/67 (mmHg) O2 Sat by Pulse 99 Oximetry Oxygen Devices in Use Now: None Appearance: Elderly female, in gerichair, appears a bit anxious and tachypnic. Eyes: No Scleral Icterus, PERRLA Ears/Nose/Mouth/Throat: Clear Oropharnyx Neck: Trachea Midline, No Thyroid Enlargement, Masses Respiratory: Symmetrical Chest Expansion and Respiratory Effort - wheezing diffusely, mild decrease BS left apex. Cardiovascular: RRR Abdominal: NL Sounds; No Tenderness; No Distention Extremities: - - mild LE edema, fingers blue, lips pink. Neurological: Alert and Oriented x 3 Lines/Tubes/Other Access: Clean, Dry and Intact Peripheral IV Diagnostic Imaging: CXR 05/26/19: left apical pneumothorax. Good lead placement. EKG Data: Pacer interogation: Lead impedance Sensing Pacing A 304 Afib NA V 8589 mV 8.6 mV 0.5V@0.4 ms Assessment/Plan 83 yo female with paroxysmal afib flutter, tachybrady POD #1 dual chamber pacer implantation. Complication: pneumothorax seen today. BP low off lasix and lisinopril this AM. Comorbidities include: DM, HTN, CM, GERD, Chol. Pneumothorax: Surgery consulted, help appreciated. Awaiting repeat CXR to decide on CT Keep overnight either way. Pacer: Good function. Flutter/fib: Resume Eliquis after CT or one dose tonight if no CT, hold in AM in case needs CT in AM No CV now, will be done as an outpatient.
[2019-05-26] MEDS: Apixaban* 2.5 MG TAB PO SCH (20:13)
[2019-05-26] MEDS: Atorvastatin* 10 MG TAB PO SCH (20:28)
[2019-05-26] MEDS ORDERED: Apixaban* 5 MG TAB PO SCH (21:00)
--- NOTE | 2019-05-26 22:47 | PRO ---
CC: Dr. Osmel Fisher; Primary Care Doctor; [facility] * DATE OF PROCEDURE: 05/26/19 - ROOM #442 SURGEON: Robbi Ash MD ANTISQUEAK FILLER: None. ANESTHESIA: Local anesthesia. PREPROCEDURE DIAGNOSIS: Left pneumothorax. POSTPROCEDURE DIAGNOSIS: Left pneumothorax. PROCEDURE: Left tube thoracostomy. SPECIMEN: None. DRAINS: 8-Divehi tubing placed. INDICATIONS: I was contacted by the cardiology service to evaluate Ms. Meyers, an 83-year-old female who underwent placement of a pacemaker the day prior. The patient spent a night and on a followup chest x-ray this morning was noted to have a pneumothorax. The case was discussed with MARIYA Onofre who saw the patient. Please see his additional note and this was reviewed. Followup chest x-ray showed continued left apical pneumothorax and I recommended placement of a Heimlich valve left tube thoracostomy. DESCRIPTION OF PROCEDURE: The patient agreed after discussing the risks, benefits and alternatives and in her room, she was placed on her bed in supine position. The dressing from the pacemaker was shifted somewhat off of its original site to free up the area of the second intercostal space in the midclavicular line. This area was prepped and after injection of lidocaine, an 8-Divehi Heimlich valve type tubing was then inserted into the left chest. Large gush of air was encountered and this was connected to valve. Additional air was removed and we hooked it up to Heimlich valve and sutured it to the skin in appropriate fashion. Sterile dressing was then applied. The patient tolerated the procedure well. Plan is for chest x-ray tomorrow, 05/27/19, with the possibility removing this if pneumothorax is resolved. [id number]/[facility] #: [id number] [facility]ITAL[facility]rystal
[2019-05-27] MEDS: oxyCODONE/Acetamin 5/325 MG* TAB PO PRN ×2 (05:09→22:06)
[2019-05-27] MEDS: Lisinopril TAB* 10 MG PO SCH (09:56)
[2019-05-27] MEDS: Metoprolol Succinate XL TAB* 25 MG PO SCH ×2 (09:56→11:09)
[2019-05-27] MEDS: metFORMIN* 500 MG TAB PO SCH ×2 (10:02→20:52)
[2019-05-27] MEDS: Amiodarone TAB* 200 MG PO SCH (10:02)
[2019-05-27] MEDS: Apixaban* 2.5 MG TAB PO SCH ×2 (10:02→20:53)
[2019-05-27] MEDS: Furosemide TAB* 20 MG PO SCH (10:02)
[2019-05-27] MEDS: Pantoprazole TAB * 40 MG TAB PO SCH (10:02)
--- NOTE | 2019-05-27 11:00 | PN ---
<Faith Billingsley - Last Filed: 05/27/19 10:55> Subjective Date of Service: 05/27/19 - s/p DC PPPM implant 05/25/2019 complicated by left apical pneumothorax Interval History: This AM still has left axillary pain with inspiration and tachypnea with low BP. CXR revealed pneumothorax Left apex, small. Medications Active Medications: Acetaminophen (Tylenol Tab*) 650 mg PO Q4H PRN PRN Reason: PAIN - MILD Amiodarone [facility] ([facility]one Tab*) [facility] [place] Admin: 05/27/19 10:02 Dose: 200 mg Apixaban (Eliquis*) 2.5 mg PO BID [facility] Last Admin: 05/27/19 10:02 Dose: 2.5 mg Atorvastatin Calcium (Lipitor*) 10 mg PO BEDTIME [facility] Last Admin: 05/26/19 20:28 Dose: 10 mg Diazepam (Valium Tab(*)) 5 mg PO ONCE PRN PRN Reason: ONCALL TO CATHLAB Docusate Sodium (Colace Cap*) 100 mg PO DAILY PRN PRN Reason: CONSTIPATION Furosemide (Lasix Tab*) 20 mg PO SuTuThSa@0900 [facility] Last Admin: 05/27/19 10:02 Dose: 20 mg Furosemide (Lasix Tab*) 40 mg PO MoWeFr@0900 [facility] Last Admin: 05/26/19 08:11 Dose: 40 mg Lisinopril (Prinivil Tab*) [facility] Admin: 05/27/19 09:56 Dose: Not Given Metformin HCl (Glucophage*) 500 mg PO BID [facility] Last Admin: 05/27/19 10:02 Dose: 500 mg Metoprolol Succinate (Toprol Xl Tab*) 12.5 [facility] [place] Last Admin: 05/27/19 09:56 Dose: Not Given Oxycodone/Acetaminophen (Percocet 5/325 Tab*) 1 tab PO Q4H PRN PRN Reason: PAIN - MODERATE Last Admin: 05/27/19 05:09 Dose: 1 tab Pantoprazole Sodium (Protonix Tab*) 40 mg PO DAILY [facility] Last Admin: 05/27/19 10:02 Dose: 40 mg Objective Vital Signs: Temp Pulse Resp BP Pulse Ox 98.5 F 118 22 94/54 99 05/27/19 08:30 05/27/19 08:30 05/27/19 08:30 05/27/19 09:30 05/27/19 08:30 Oxygen Devices in Use Now: Nasal Cannula Appearance: Elderly female, in gerichair, appears a bit anxious and tachypnic. Eyes: No Scleral Icterus, PERRLA Ears/Nose/Mouth/Throat: Clear Oropharnyx Neck: Trachea Midline, No Thyroid Enlargement, Masses Respiratory: Symmetrical Chest Expansion and Respiratory Effort - + inspiratory crackles noted in rightbase. slight decrease in breath sounds in left base. Cardiovascular: RRR Abdominal: NL Sounds; No Tenderness; No Distention Extremities: - - mild LE edema, fingers blue, lips pink. Neurological: Alert and Oriented x 3 Lines/Tubes/Other Access: Clean, Dry and Intact Peripheral IV Diagnostic Imaging: CXR 05/26/19: left apical pneumothorax. Good lead placement. This morning's CXR is pending. EKG Data: Pacer interrogation 05/26/2019: Lead impedance Sensing Pacing A 304 Afib NA V 8589 mV 8.6 mV 0.5V@0.4 ms Assessment/Plan 83 yo female with paroxysmal afib flutter, tachybrady POD #2 dual chamber pacer implantation. Complications: small left apical pneumothorax seen 05/26/2019. BP low has not received Bblocker or ACEI. Comorbidities include: DM, HTN, CM, GERD, Chol. Pneumothorax: Surgery consulted, help appreciated. Awaiting repeat CXR this morning to assess improvement post Ct placement 05/26/2019. Will continue to monitor. Daughter has not made a decision in regards to placement she is to be in later today. Pacer: Good function. Flutter/fib: Continue Eliquis and Amiodarone therapy. Will need to be evaluated outpatient for possible CV.Will hold diuretics for now given low BP with c/o dizziness with position change. Attending: Sumit Lanza <Sumit Lanza - Last Filed: 05/27/19 12:18> Subjective Interval History: 05.27.2019 12:15 pm: pt seen and examined. pt's clinical care and plan d/w AUDIO VISUAL FACILITIES ENGINEER Myles Billingsley and will follow closely BP and meds will be adjusted accordingly. Chest tube as per surgery. F/u CXR. Medications Active Medications: Acetaminophen (Tylenol Tab*) 650 mg PO Q4H PRN PRN Reason: PAIN - MILD Amiodarone HCl (Cordarone Tab*) [facility] [place] Admin: 05/27/19 10:02 Dose: 200 mg Apixaban (Eliquis*) 2.5 mg PO BID [facility] Last Admin: 05/27/19 10:02 Dose: 2.5 mg Atorvastatin Calcium (Lipitor*) 10 mg PO BEDTIME [facility] Last Admin: 05/26/19 20:28 Dose: 10 mg Cephalexin HCl (Keflex Cap*) 250 mg PO TID [facility] Stop: 05/30/19 14:00 Diazepam (Valium Tab(*)) 5 mg PO ONCE PRN PRN Reason: ONCALL TO CATHLAB Docusate Sodium (Colace Cap*) 100 mg PO DAILY PRN PRN Reason: CONSTIPATION Lisinopril (Prinivil Tab*) [facility] [place] Admin: 05/27/19 09:56 Dose: Not Given Metformin HCl (Glucophage*) 500 mg PO BID [facility] Last Admin: 05/27/19 10:02 Dose: 500 mg Metoprolol Succinate (Toprol Xl Tab*) 12.[facility] [place] Admin: 05/27/19 11:09 Dose: 12.5 mg Oxycodone/Acetaminophen (Percocet 5/325 Tab*) 1 tab PO Q4H PRN PRN Reason: PAIN - MODERATE Last Admin: 05/27/19 05:09 Dose: 1 tab Pantoprazole Sodium (Protonix Tab*) 40 mg PO DAILY [facility] Last Admin: 05/27/19 10:02 Dose: 40 mg Objective Vital Signs: Temp Pulse Resp BP Pulse Ox 98.5 F 118 22 106/60 99 05/27/19 08:30 05/27/19 08:30 05/27/19 08:30 05/27/19 12:06 05/27/19 08:30
--- NOTE | 2019-05-27 13:35 | PN ---
Progress Note - Progress Note Date of Service: 05/27/19 Note: Surgery Progress: S: no new c/o. Some pain under L axilla with deep breath and/or movement. Denies SOB at rest. O: Vital Signs - 8 hr 05/27/19 05/27/19 05/27/19 08:30 09:30 10:56 Temperature 98.5 F Pulse Rate 118 Respiratory 22 Rate Blood Pressure 98/58 94/54 98/58 (mmHg) O2 Sat by Pulse 99 Oximetry 05/27/19 12:06 Temperature Pulse Rate Respiratory Rate Blood Pressure 106/60 (mmHg) O2 Sat by Pulse Oximetry Intake and Output Last 24 Hours 05/25/19 05/26/19 05/27/19 05/28/19 06:59 06:59 06:59 06:59 Intake Total 1060 240 480 Output Total 141 350 Balance 919 -110 480 Weight 168 lb 164 lb 12.8 oz Intake: IV Fluids 430 65 ABX - CEFAZOLIN 30 50 NS 15 IVPB 50 55 ABX - CEFAZOLIN 50 55 Oral 580 120 480 Output: Urine 141 350 Other: Estimated Void Medium Large # Voids 1 Gen: sitting up, eating lunch; NAD Heart: sl tachy Lungs: clear apices to bases chest tube: no air leak on underwater test cXray pend (I spoke w/ nurse) A: s/p L ptx post pacemaker placement; clinically improved P: discussed w/ Dr. Ash this a.m. Poss chest tube removal later today if xray ok.
--- NOTE | 2019-05-27 15:08 | PN ---
Progress Note - Progress Note Date of Service: 05/27/19 Note: Surgery Progress: Addendum: chest xray does not appear to show any ptx, but has not yet been read. Discussed w/ Dr. Morrison, double end tenon operator attending, who recommended that we wait until tomorrow a.m. to remove chest tube. Message relayed to [facility] staff who will inform patient/family.
[2019-05-27] MEDS: Acetaminophen TAB* 325 MG PO PRN (15:47)
[2019-05-27] MEDS: Cephalexin CAP* 250 MG PO SCH ×2 (15:47→20:52)
[2019-05-27] MEDS: Atorvastatin* 10 MG TAB PO SCH (20:53)
[2019-05-28] MEDS: Metoprolol Succinate XL TAB* 25 MG PO SCH (09:14)
[2019-05-28] MEDS: Lisinopril TAB* 10 MG PO SCH (09:14)
[2019-05-28] MEDS: Pantoprazole TAB * 40 MG TAB PO SCH (09:15)
[2019-05-28] MEDS: metFORMIN* 500 MG TAB PO SCH ×2 (09:15→20:36)
[2019-05-28] MEDS: Amiodarone TAB* 200 MG PO SCH (09:15)
[2019-05-28] MEDS: Apixaban* 2.5 MG TAB PO SCH ×2 (09:15→20:35)
[2019-05-28] MEDS: Cephalexin CAP* 250 MG PO SCH ×3 (09:16→20:35)
[2019-05-28 10:37] LABS: BUN/Creatinine Ratio 25.7 (8-20); Calcium 8.7 mg/dL (8.6-10.3); EGFR African American 39.4 (>60); EGFR Non-African American 32.6 (>60); Potassium 4.8 mmol/L (3.5-5.0)
[2019-05-28 10:53] LABS: ABS Eosinophils 0.2 10^3/ul (0-0.6); ABS Monocytes 0.7 10^3/ul (0-0.8); ABS Neutrophils 4.4 10^3/ul (1.5-7.7); Eosinophil % 3.1 %; Hematocrit 29 % (35-47); Lymphocyte % 15.8 %; Mean Corpuscular HGB Conc 31 g/dL (31-36); Mean Corpuscular Hemoglobin 24 pg (27-31); Mean Corpuscular Volume 78 fL (80-97); Mean Platelet Volume 8.8 fL (7.4-10.4); Nucleated Red Blood Cells % 0.1; Platelet Count 197 10^3/uL (150-450); Red Blood Count 3.67 10^6 /uL (3.70-4.87); Red Cell Distribution Width 20 % (10-15); White Blood Count 6.3 10^3/uL (3.5-10.8)
--- NOTE | 2019-05-28 10:57 | PN ---
<Faith Billingsley - Last Filed: 05/28/19 10:51> Subjective Date of Service: 05/28/19 - s/p DC PPM complicated by small apical pneumothorax requiring CT Interval History: No events last night. Patient slept poorly due to a sore neck that improved with a warm compress. No c/o chest pain, she states left axilla pain improved. She is c/o constipation she has been requiring opiods for pain. + positional lightheadedness. + dyspnea. Medications Active Medications: Acetaminophen (Tylenol Tab*) 650 mg PO Q4H PRN PRN Reason: PAIN - MILD Last Admin: 05/27/19 15:47 Dose: 650 mg Amiodarone HCl (Cordarone Tab*) 200 mg PO QAM [facility] Last Admin: 05/28/19 09:15 Dose: 200 mg Apixaban (Eliquis*) 2.5 mg PO BID [facility] Last Admin: 05/28/19 09:15 Dose: 2.5 mg Atorvastatin Calcium (Lipitor*) 10 mg PO BEDTIME [facility] Last Admin: 05/27/19 20:53 Dose: 10 mg Cephalexin HCl (Keflex Cap*) 250 mg PO TID [facility] Stop: 05/30/19 14:00 Last Admin: 05/28/19 09:16 Dose: 250 mg Diazepam (Valium Tab(*)) 5 mg PO ONCE PRN PRN Reason: ONCALL TO CATHLAB Docusate Sodium (Colace Cap*) 100 mg PO DAILY PRN PRN Reason: CONSTIPATION Lisinopril (Prinivil Tab*) 10 mg PO QAM [facility] Metformin HCl (Glucophage*) 500 mg PO BID [facility] Last Admin: 05/28/19 09:15 Dose: 500 mg Metoprolol Succinate (Toprol Xl Tab*) 12.5 mg PO QAM [facility] Last Admin: 05/28/19 09:14 Dose: 12.5 mg Oxycodone/Acetaminophen (Percocet 5/325 Tab*) 1 tab PO Q4H PRN PRN Reason: PAIN - MODERATE Last Admin: 05/27/19 22:06 Dose: 1 tab Pantoprazole Sodium (Protonix Tab*) 40 mg PO DAILY [facility] Last Admin: 05/28/19 09:15 Dose: 40 mg Objective Vital Signs: Temp Pulse Resp BP Pulse Ox 98.3 F 87 21 113/60 100 05/28/19 07:54 05/28/19 07:54 05/28/19 07:54 05/28/19 07:54 05/28/19 07:54 Oxygen Devices in Use Now: None, Nasal Cannula Appearance: Elderly female, in bed,appears comfortable with daughter at bedside. NAD Eyes: No Scleral Icterus, PERRLA Ears/Nose/Mouth/Throat: Clear Oropharnyx Neck: Trachea Midline, No Thyroid Enlargement, Masses Respiratory: Symmetrical Chest Expansion and Respiratory Effort - + inspiratory crackles noted in rightbase. slight decrease in breath sounds in left base. Cardiovascular: RRR, - - Normal S1, S2 irregular rate and rhythm. no murmur Abdominal: NL Sounds; No Tenderness; No Distention Extremities: - - 1+ bilateral pretibial edema Neurological: Alert and Oriented x 3 Lines/Tubes/Other Access: Clean, Dry and Intact Peripheral IV, Clean, Dry and Intact Other Access - CT Laboratory Results: 05/28/19 10:12 Laboratory Results - last 24 hr 05/28/19 05/28/19 10:12 10:12 WBC 6.3 RBC 3.67 L Hgb 9.0 L Hct 29 L MCV 78 L MCH 24 L MCHC 31 RDW 20 H Plt Count 197 MPV 8.8 Neut % (Auto) 68.7 Lymph % (Auto) 15.8 [place] % (Auto) 11.8 Eos % (Auto) 3.1 Baso % (Auto) 0.6 Absolute Neuts (auto) 4.4 Absolute Lymphs (auto) 1.0 Absolute Monos (auto) 0.7 Absolute Eos (auto) 0.2 Absolute Basos (auto) 0.0 Absolute Nucleated RBC 0.0 Nucleated RBC % 0.1 Sodium 130 L Potassium 4.8 Chloride 100 L Carbon Dioxide 26 Anion Gap 4 BUN 39 H Creatinine 1.52 H Est GFR ( Amer) 39.4 Est GFR (Non-Af Amer) 32.6 BUN/Creatinine Ratio 25.7 H Glucose 170 H Calcium 8.7 Diagnostic Imaging: CXR 05/26/19: left apical pneumothorax. Good lead placement. EKG Data: Pacer interrogation 05/26/2019: Lead impedance Sensing Pacing A 304 Afib NA V 8589 mV 8.6 mV 0.5V@0.4 ms Telemetry today reviewed; Sinus 90's not sure when she converted. Assessment/Plan 83 yo female with paroxysmal afib flutter, tachybrady POD #2 dual chamber pacer implantation. Complications: small left apical pneumothorax seen 05/26/2019. BP low has not received Bblocker or ACEI. Comorbidities include: DM, HTN, CM, GERD, Chol. Pneumothorax: Surgery consulted, help appreciated. CXR yesterday morning revealed improvement post Ct placement 05/26/2019 I believe tentative plan is removal of CT tube today. Will defer to Dr. Ash. Will continue to monitor. Patient will require rehab. Spoke with shoe parts caser and we are awaiting placement she will not be accepted until at least Friday per shoe parts caser. Labs updated renal function is elevated. Lisinopril reduced to 10mg/day. Will continue to hold Lasix for the time being. Na+ 130. Mag and CBC is pending. Will update ECG to ensure QTc stable. K+ at goal given patient is on amiodarone. Flutter/fib: Continue Eliquis and Amiodarone therapy. Will continue to monitor and await ECG and labs. Patient will be here throughout the weekend due patient requiring rehab upon discharge. Device site is intact, no hematoma. Last dose of Keflex . Attending: Sumit Lanza <Sumit Lanza - Last Filed: 05/28/19 13:37> Medications Active Medications: Acetaminophen (Tylenol Tab*) 650 mg PO Q4H PRN PRN Reason: PAIN - MILD Last Admin: 05/27/19 15:47 Dose: 650 mg Amiodarone HCl (Cordarone Tab*) 100 mg PO DAILY [facility] Apixaban (Eliquis*) 2.5 mg PO BID [facility] Last Admin: 05/28/19 09:15 Dose: 2.5 mg Atorvastatin Calcium (Lipitor*) 10 mg PO BEDTIME [facility] Last Admin: 05/27/19 20:53 Dose: 10 mg Cephalexin HCl (Keflex Cap*) 250 mg PO TID [facility] Stop: 05/30/19 14:00 Last Admin: 05/28/19 13:13 Dose: 250 mg Diazepam (Valium Tab(*)) 5 mg PO ONCE PRN PRN Reason: ONCALL TO CATHLAB Docusate Sodium (Colace Cap*) 100 mg PO DAILY PRN PRN Reason: CONSTIPATION Last Admin: 05/28/19 11:13 Dose: 100 mg Magnesium Sulfate (Magnesium Sulfate 2 Gm Iv*) 2 gm in 50 mls @ 50 mls/hr IVPB ONCE ONE Stop: 05/28/19 13:59 Lisinopril (Prinivil Tab*) 10 mg PO QAM [facility] Magnesium Oxide (Magox 400 Tab*) 400 mg PO BID [facility] Metformin HCl (Glucophage*) 500 mg PO BID [facility] Last Admin: 05/28/19 09:15 Dose: 500 mg Metoprolol Succinate (Toprol Xl Tab*) 12.5 mg PO QAM [facility] Last Admin: 05/28/19 09:14 Dose: 12.5 mg Oxycodone/Acetaminophen (Percocet 5/325 Tab*) 1 tab PO Q4H PRN PRN Reason: PAIN - MODERATE Last Admin: 05/27/19 22:06 Dose: 1 tab Pantoprazole Sodium (Protonix Tab*) 40 mg PO DAILY [facility] Last Admin: 05/28/19 09:15 Dose: 40 mg Objective Vital Signs: Temp Pulse Resp BP Pulse Ox 97.9 F 88 20 110/54 100 05/28/19 12:35 05/28/19 12:35 05/28/19 12:35 05/28/19 12:35 05/28/19 12:35 Laboratory Results: 05/28/19 10:12 05/28/19 10:12 Assessment/Plan 05.28.2019 1:35 pm: pt's clinical condiotion reviewed. Discussed with WALDO Billingsley. amio decreased to 100 mg po qd for concerns of prolonged QTc. Mag IV been given for low mag and daily po ordered. F/u as per surgery for chest tube.need rehab and arrangements.
[2019-05-28 11:07] LABS: Magnesium 1.7 mg/dL (1.9-2.7)
[2019-05-28] MEDS: Docusate CAP* 100 MG PO PRN (11:13)
--- NOTE | 2019-05-28 12:16 | PN ---
Progress Note - Progress Note Date of Service: 05/28/19 Note: Surgery Progress S: Denies CP, but admits to SOB w/ exertion. O: Vital Signs - 8 hr 05/28/19 05/28/19 05/28/19 07:00 07:54 08:00 Temperature 98.3 F Pulse Rate 87 Respiratory 21 18 Rate Blood Pressure 113/60 (mmHg) O2 Sat by Pulse 100 100 Oximetry 05/28/19 11:00 Temperature Pulse Rate Respiratory Rate Blood Pressure (mmHg) O2 Sat by Pulse 100 Oximetry Gen: sitting up in chair; NAD Lungs: clear to ausc in [place] Chest tube: no airleak demonstrated Chest xray from 9 pm: no ptx A: s/p chest tube placement for Left ptx post pacemaker placement; ptx resolved P: chest tube removed w/o incident; occlusive dsg placed; pt lisa'd well
[2019-05-28] MEDS ORDERED: Magnesium Sulfate 2 GM IV* 2 GM/50 ML BAG IVPB ONE (13:00)
[2019-05-28] MEDS: oxyCODONE/Acetamin 5/325 MG* TAB PO PRN (18:27)
[2019-05-28] MEDS: Magnesium Oxide TAB* 400 MG PO SCH (20:35)
[2019-05-28] MEDS: Atorvastatin* 10 MG TAB PO SCH (20:36)
[2019-05-29] MEDS: Metoprolol Succinate XL TAB* 25 MG PO SCH ×3 (08:10→20:42)
[2019-05-29] MEDS: Acetaminophen TAB* 325 MG PO PRN ×2 (08:10→23:43)
[2019-05-29] MEDS: Amiodarone TAB* 200 MG PO SCH (08:10)
[2019-05-29] MEDS: Magnesium Oxide TAB* 400 MG PO SCH ×2 (08:11→20:41)
[2019-05-29] MEDS: metFORMIN* 500 MG TAB PO SCH ×2 (08:11→20:41)
[2019-05-29] MEDS: Docusate CAP* 100 MG PO PRN (08:11)
[2019-05-29] MEDS: Apixaban* 2.5 MG TAB PO SCH ×2 (08:11→20:42)
[2019-05-29] MEDS: Pantoprazole TAB * 40 MG TAB PO SCH (08:11)
[2019-05-29] MEDS: Cephalexin CAP* 250 MG PO SCH ×3 (08:11→20:41)
[2019-05-29] MEDS ORDERED: Lisinopril TAB* 10 MG PO SCH (09:00)
--- NOTE | 2019-05-29 13:26 | PN ---
Subjective Date of Service: 05/29/19 - CC: s/p pacer +pneumothorax Interval History: The patient is SOB, +orthopnea, pleuritic CP. Also some incisional pain. PT notes reviewed, c/w weakness. Family present with the patient. Medications Active Medications: Acetaminophen (Tylenol Tab*) 650 mg PO Q4H PRN PRN Reason: PAIN - MILD Last Admin: 05/29/19 08:10 Dose: 650 mg Amiodarone HCl (Cordarone Tab*) 100 mg PO DAILY [facility] Last Admin: 05/29/19 08:10 Dose: 100 mg Apixaban (Eliquis*) 2.5 mg PO BID [facility] Last Admin: 05/29/19 08:11 Dose: 2.5 mg Atorvastatin Calcium (Lipitor*) 10 mg PO BEDTIME [facility] Last Admin: 05/28/19 20:36 Dose: 10 mg Cephalexin HCl (Keflex Cap*) 250 mg PO TID [facility] Stop: 05/30/19 14:00 Last Admin: 05/29/19 13:11 Dose: 250 mg Diazepam (Valium Tab(*)) 5 mg PO ONCE PRN PRN Reason: ONCALL TO CATHLAB Docusate Sodium (Colace Cap*) 100 mg PO DAILY PRN PRN Reason: CONSTIPATION Last Admin: 05/29/19 08:11 Dose: 100 mg Lisinopril (Prinivil Tab*) 10 mg PO QAM [facility] Last Admin: 05/29/19 08:11 Dose: 10 mg Magnesium Oxide (Magox 400 Tab*) 400 mg PO BID [facility] Last Admin: 05/29/19 08:11 Dose: 400 mg Metformin HCl (Glucophage*) 500 mg PO BID [facility] Last Admin: 05/29/19 08:11 Dose: 500 mg Metoprolol Succinate (Toprol Xl Tab*) 12.5 mg PO QAM [facility] Last Admin: 05/29/19 08:10 Dose: 12.5 mg Oxycodone/Acetaminophen (Percocet 5/325 Tab*) 1 tab PO Q4H PRN PRN Reason: PAIN - MODERATE Last Admin: 05/28/19 18:27 Dose: 1 tab Pantoprazole Sodium (Protonix Tab*) 40 mg PO DAILY [facility] Last Admin: 05/29/19 08:11 Dose: 40 mg Objective Vital Signs: Temp Pulse Resp BP Pulse Ox 97.5 F 86 18 111/61 97 05/29/19 11:16 05/29/19 11:16 05/29/19 11:16 05/29/19 11:16 05/29/19 13:13 Oxygen Devices in Use Now: None Appearance: Elderly female, in chelo chair. Eating. Eyes: No Scleral Icterus, PERRLA Ears/Nose/Mouth/Throat: Mucous Membranes Moist Neck: Trachea Midline, No Thyroid Enlargement, Masses Respiratory: Symmetrical Chest Expansion and Respiratory Effort - diffuse basilar crackles, decreased BS throughout, fine wheezing. Cardiovascular: RRR, - - Normal S1, S2 regular rate and rhythm. no murmur Abdominal: NL Sounds; No Tenderness; No Distention, - - obese. Extremities: - - 1+ bilateral pretibial edema Neurological: Alert and Oriented x 3 Lines/Tubes/Other Access: Clean, Dry and Intact Peripheral IV, Clean, Dry and Intact Other Access - CT Laboratory Results: 05/28/19 10:12 05/28/19 10:12 Diagnostic Imaging: CXR 05/26/19: left apical pneumothorax. Good lead placement. CXR 05/27/19: CT in pneumothorax resolved, +CHF. EKG Data: Pacer interrogation 05/26/2019: Lead impedance Sensing Pacing A 304 Afib NA V 8589 mV 8.6 mV 0.5V@0.4 ms 05/29/19 tele strips c/w atrial flutter, V pacing, V rates vary, but often around 100 bpm Assessment/Plan 83 yo with atrial flutter tachy calixto s/p dual chamber pacer implant last week. Complicated by pneumothorax to chest tube, low BP and meds held. Now with CHF on CXR and exam. Ventricular rates are high. PACER: Good function and lead position. May need to reprogram if V rates remain high. CHF: Possibly from high ventricular rates and/or V pacing. Resume diuretics. Increase beta vinicius. stopped lisinopril for now re: BP may get too low with increase of above. May need to stop metformin, replace with a different medication (inpatient vs out patient). Pneumothorax: s/p CT Update CXR in AM. CKD noted, med adjustments as above, follow by labs. Hyponatremia: May improve with diuresis, update labs in AM. Anemia, chronic, update labs in AM Weakness: Decreased functional ability post implant. Appreciate PT assistance. Will see if nurses / PT can work with pt over the weekend[facility]
[2019-05-29] MEDS ORDERED: Furosemide IV* 10 MG/ML 2 ML VIAL (20 MG) IV ONE (13:42)
[2019-05-29] MEDS ORDERED: Magnesium Hydroxide LIQ* 30 ML UDC PO PRN (14:18)
[2019-05-29] MEDS: Atorvastatin* 10 MG TAB PO SCH (20:41)
[2019-05-30 07:06] LABS: Hematocrit 31 % (35-47); Mean Corpuscular HGB Conc 32 g/dL (31-36); Mean Corpuscular Hemoglobin 25 pg (27-31); Mean Corpuscular Volume 77 fL (80-97); Mean Platelet Volume 8.7 fL (7.4-10.4); Platelet Count 235 10^3/uL (150-450); Red Blood Count 4.05 10^6 /uL (3.70-4.87); Red Cell Distribution Width 20 % (10-15); White Blood Count 6.9 10^3/uL (3.5-10.8)
[2019-05-30 07:15] LABS: BUN/Creatinine Ratio 30.2 (8-20); Calcium 8.8 mg/dL (8.6-10.3); EGFR African American 36.6 (>60); EGFR Non-African American 30.3 (>60)
[2019-05-30 07:21] LABS: Potassium 6.1 mmol/L (3.5-5.0)
[2019-05-30] MEDS ORDERED: Sodium Polystyrene ORAL.SOL* 15 GM/60 ML BTL PO ONE (08:00)
[2019-05-30] MEDS: Apixaban* 2.5 MG TAB PO SCH ×2 (08:25→20:33)
[2019-05-30] MEDS: Magnesium Oxide TAB* 400 MG PO SCH ×2 (08:25→20:34)
[2019-05-30] MEDS: Amiodarone TAB* 200 MG PO SCH (08:25)
[2019-05-30] MEDS: Metoprolol Succinate XL TAB* 25 MG PO SCH ×2 (08:25→20:34)
[2019-05-30] MEDS: Pantoprazole TAB * 40 MG TAB PO SCH (08:25)
[2019-05-30] MEDS: Cephalexin CAP* 250 MG PO SCH ×2 (08:25→12:53)
[2019-05-30] MEDS ORDERED: Sodium Bicarbonate 8.4% IV* 50 MEQ in D5W 1/2 NS 1000 ML BAG* 1,000 ML IV ONE (12:00)
[2019-05-30 12:31] LABS: BUN/Creatinine Ratio 31.1 (8-20); Calcium 8.9 mg/dL (8.6-10.3); EGFR African American 36.1 (>60); EGFR Non-African American 29.8 (>60); Magnesium 2.3 mg/dL (1.9-2.7)
[2019-05-30 12:33] LABS: Potassium 5.5 mmol/L (3.5-5.0)
--- NOTE | 2019-05-30 14:30 | PN ---
Subjective Date of Service: 05/30/19 - CC: aflutter tachy calixto, today increased RI and K+ Interval History: The patient is feeling better, no longer constipated. No CP no SOB. Wants to walk. Family present with the patient. Medications Active Medications: Acetaminophen (Tylenol Tab*) 650 mg PO Q4H PRN PRN Reason: PAIN - MILD Last Admin: 05/29/19 23:43 Dose: 650 mg Amiodarone HCl (Cordarone Tab*) 100 mg PO DAILY [facility] Last Admin: 05/30/19 08:25 Dose: 100 mg Apixaban (Eliquis*) 2.5 mg PO BID [facility] Last Admin: 05/30/19 08:25 Dose: 2.5 mg Atorvastatin Calcium (Lipitor*) 10 mg PO BEDTIME [facility] Last Admin: 05/29/19 20:41 Dose: 10 mg Diazepam (Valium Tab(*)) 5 mg PO ONCE PRN PRN Reason: ONCALL TO CATHLAB Docusate Sodium (Colace Cap*) 100 mg PO DAILY PRN PRN Reason: CONSTIPATION Last Admin: 05/29/19 08:11 Dose: 100 mg Sodium Bicarbonate 50 meq/ (Dextrose/Sodium Chloride) 1,050 mls @ 50 mls/hr IV ONCE ONE Stop: 05/31/19 08:59 Last Admin: 05/30/19 12:49 Dose: 50 mls/hr Magnesium Hydroxide (Milk Of Magnesia Liq*) 30 ml PO BID PRN PRN Reason: CONSTIPATION Last Admin: 05/29/19 14:35 Dose: 30 ml Magnesium Oxide (Magox 400 Tab*) 400 mg PO BID [facility] Last Admin: 05/30/19 08:25 Dose: 400 mg Metoprolol Succinate (Toprol Xl Tab*) 25 mg PO BID [facility] Last Admin: 05/30/19 08:25 Dose: 25 mg Oxycodone/Acetaminophen (Percocet 5/325 Tab*) 1 tab PO Q4H PRN PRN Reason: PAIN - MODERATE Last Admin: 05/28/19 18:27 Dose: 1 tab Pantoprazole Sodium (Protonix Tab*) 40 mg PO DAILY [facility] Last Admin: 05/30/19 08:25 Dose: 40 mg Objective Vital Signs: Temp Pulse Resp BP Pulse Ox 97.7 F 59 16 115/56 100 05/30/19 11:15 05/30/19 11:15 05/30/19 11:15 05/30/19 11:15 05/30/19 11:15 Oxygen Devices in Use Now: None Appearance: Elderly female, in chelo chair. Smiling today Eyes: No Scleral Icterus, PERRLA Ears/Nose/Mouth/Throat: Mucous Membranes Moist Neck: Trachea Midline, No Thyroid Enlargement, Masses Respiratory: Symmetrical Chest Expansion and Respiratory Effort, Clear to Auscultation Cardiovascular: RRR, - - Normal S1, S2 regular rate and rhythm. no murmur Abdominal: NL Sounds; No Tenderness; No Distention, - - obese, soft. Extremities: - - warm, non tender. Skin: - - incision left shoulder healing well, dressing removed. Neurological: Alert and Oriented x 3 Lines/Tubes/Other Access: Clean, Dry and Intact Peripheral IV, Clean, Dry and Intact Other Access - CT Laboratory Results: 05/30/19 06:45 05/30/19 12:07 Laboratory Results - last 24 hr 05/30/19 05/30/19 05/30/19 06:45 06:45 12:07 WBC 6.9 RBC 4.05 Hgb 10.0 L Hct 31 L MCV 77 L MCH 25 L MCHC 32 RDW 20 H Plt Count 235 MPV 8.7 Sodium 127 L 128 L Potassium 6.1 H* 5.5 H Chloride 99 L 99 L Carbon Dioxide 21 L 23 Anion Gap 7 6 BUN 49 H 51 H Creatinine 1.62 H 1.64 H Est GFR ( Amer) 36.6 36.1 Est GFR (Non-Af Amer) 30.3 29.8 BUN/Creatinine Ratio 30.2 H 31.1 H Glucose 131 H 154 H Lactic Acid Calcium 8.8 8.9 Magnesium 2.3 Diagnostic Imaging: CXR 05/26/19: left apical pneumothorax. Good lead placement. CXR 05/27/19: CT in pneumothorax resolved, +CHF. Patient Name: SALMA PADILLA Medical Record#: [id number] INDICATION: CHF. Recent pacemaker placement. COMPARISON: May 27, 2019 TECHNIQUE: Sitting AP and lateral chest views 0756 hours REPORT: LEFT apical chest tube has been removed. RIGHT atrial and RIGHT ventricular level pacemaker leads. Cardiomegaly. Prominent mildly ill-defined central pulmonary vasculature and diffuse prominence of interstitial markings as well as small dependent pleural effusions. Negative for pneumothorax. IMPRESSION: #. Pulmonary vascular congestion and interstitial edema with associated small pleural effusions. Probable interval improvement compared with the prior exam. <Electronically signed by Stephane Smith MD in [place]> 05/30/19 0853 EKG Data: Pacer interrogation 05/26/2019: Lead impedance Sensing Pacing A 304 Afib NA V 8589 mV 8.6 mV 0.5V@0.4 ms 05/29/19 tele strips c/w atrial flutter, V pacing, V rates vary, but often around 100 bpm Tele 05/30/19: Dual chamber pacing 60's Assessment/Plan 83 yo with atrial flutter tachy calixto s/p dual chamber pacer implant last week. Complicated by pneumothorax to chest tube, low BP and meds held. CHF on CXR and exam Friday to IV lasix. Constipated since admission to [facility]. Today labs show hyperkalemia, progression in/worsening elevation of BUN+Cr. PACER: Good function and lead position. CHF: Possibly from high ventricular rates and/or V pacing+ CKD. Rate no longer tachycardic with increase beta vinicius. Pneumothorax: s/p CT No recurrance on CXR today. CKD w/hyperkalemia: No additional lasix planned at this time. Metformin stopped. Lisinopril stopped. Kayexelate given this AM with improvement in K+ on f/u labs. Consulted hospitalists, appreciate their assistance.. Anemia, chronic, improving. Weakness: Plans for going to [place] rehab Friday.
--- NOTE | 2019-05-30 17:51 | CONS ---
HOSPITAL MEDICINE CONSULTATION REPORT: DATE OF CONSULT: 05/30/19 PROVIDER: Shahrzad Moyer NP ATTENDING PHYSICIAN WHILE IN THE HOSPITAL: Dr. Fisher. CONSULTING PHYSICIAN: Dr. Daniel Sevilla (dictated by Shahrzad Moyer NP) . REASON FOR CONSULT: Hyperkalemia, elevated BUN and creatinine. HISTORY OF PRESENT ILLNESS: Ms. Meyers is an 83-year-old female with a past medical history significant for diabetes; hypertension; hyperlipidemia; GERD; history of left bundle-branch block; sick sinus syndrome, status post pacemaker placement on 05/25/19; Aflutter; tachybrady syndrome who presented to [facility] on 07/03 for a permanent pacemaker placement with Dr. Fisher. Please see dictated H and P from Acacia Joyner NP, for complete details. In brief, the patient had a history of sick sinus syndrome and mild LV dysfunction as well as tachybrady syndrome and for further management of her heart arrhythmias needed a permanent pacemaker placed, which she completed on 05/25/19. Status post pacemaker, the patient did have a small apical pneumothorax, so she was admitted overnight to monitor for the pneumothorax. She did have some shortness of breath during this hospitalization. Today, the patient had lab work drawn which showed that she was hyperkalemic with a potassium level of 6.1 and also showed an elevation in her BUN and creatinine. Due to these findings, Hospital Medicine was asked to see and consult the patient for further recommendations. PAST MEDICAL HISTORY: Significant for: 1. Aflutter. 2. Sick sinus syndrome. 3. Diabetes. 4. Hypertension. 5. Hyperlipidemia. 6. GERD. 7. Palpitations. 8. History of left bundle-branch block. 9. Hyponatremia. 10. Cardiomyopathy. 11. Anemia. PAST SURGICAL HISTORY: Pacemaker placement on 05/25/19. No other surgical history. HOME MEDICATIONS: Include: 1. Dulcolax Stool Softener 100 mg p.r.n. 2. Eliquis 2.5 mg 1 tablet twice daily. 3. Amiodarone 100 mg 1 tablet p.o. daily. 4. Magnesium oxide 400 mg 2 tablets daily. 5. Oxycodone/acetaminophen as needed. 6. Omeprazole 20 mg 1 tablet p.o. daily. 7. Metformin 500 mg 1 tablet twice daily. 8. Iron 18 mg 1 p.o. t.i.d. 9. Vitamin B12 1000 mcg 2 tablets p.o. daily. 10. Atorvastatin 10 mg p.o. daily. 11. Lisinopril 20 mg p.o. daily. 12. Furosemide 1 tablet by mouth daily and 2 tablets by mouth Friday, Friday , and Friday. 13. Tylenol 650 mg every 6 hours as needed for pain. 14. Vitamin C 500 mg p.o. daily. 15. Metoprolol succinate ER 12.5 mg p.o. daily. ALLERGIES: No known drug allergies. FAMILY HISTORY: Father with hypertension and MO, due to an MO. Mother with diabetes, due to GI/internal bleeding. She had 2 siblings , 1 sister due to lung cancer, 1 sister due to heart disease and diabetes. Brother with diabetes. SOCIAL HISTORY: The patient denies any tobacco, alcohol, or illicit drug use. She is retired. She is . Surrogate decision maker in the event she is unable to make her own decisions is daughter or her . She is a DNR with trial of intubation. REVIEW OF SYSTEMS: The patient denies any fever, chills, unintended weight loss , chest pain. Denies any cough, hemoptysis. She does report occasional shortness of breath. No nausea, vomiting, diarrhea or abdominal pain, hematuria or dysuria. Denies any focal weakness or sensory loss, visual complaints, dysphagia, arthralgias, or myalgias. She does report surgical incision to her left chest. Denies any psychosis or anxiety. She does report edema to the lower extremities at times. PHYSICAL EXAM: General: At this time, Ms. Meyers is alert and oriented, sitting in her recliner. She is in no acute distress. Vital Signs: Blood pressure 110/54, heart rate 59, respirations are 20, O2 saturation 99% on room air, temperature was 98.0. HEENT: Head is atraumatic, normocephalic. Eyes: EOMs are intact. Sclerae anicteric and not pale. Oral mucosa appeared to be moist. Neck is supple. Lungs are diminished bilaterally. There are no wheezes , rales, or rhonchi. Cardiac: S1, S2. No murmurs, rubs, or gallops. Abdomen is soft and nontender. Bowel sounds are present x4. Extremities: She does have +2 pitting edema noted to bilateral lower extremities. Pedal pulses are + 1 bilaterally. Neurologic: She is awake, alert, oriented x3. Speech is clear. Thought process is intact. There are no gross focal deficits. Skin: She does have a surgical incision without erythema that is dry to her left chest. DIAGNOSTIC STUDIES/LAB DATA: WBCs are 6.9, RBCs 4.05, hemoglobin 10.0, hematocrit is 31, platelet count 235. Sodium 128, potassium 5.5, chloride 99, carbon dioxide is 23, anion gap is 6, BUN 51, creatinine 1.64. Magnesium 2.3, lactic acid was 1.9. She had a chest x-ray on 05/30/19: Pulmonary vascular congestion with interstitial edema with associated small pleural effusions, probable interval improvement when compared to prior exam. She had an electrocardiogram which showed paced rhythm at a rate of 60. IMPRESSION AND PLAN: Ms. Meyers is an 83-year-old female with a past medical history significant for diabetes, hypertension, hyperlipidemia, gastroesophageal reflux disease, sick sinus syndrome, left bundle-branch block, tachybrady syndrome, who recently underwent permanent pacemaker placement with Dr. Fisher on 05/25/19, subsequently had a left pneumothorax. Hospital Medicine was asked to evaluate due to hyperkalemia and elevated BUN and creatinine. Our recommendations are as follows: 1. Hyperkalemia. The patient did receive lactulose 1 dose. Repeat BMP, potassium went from 6.1 to 5.5. We will repeat a BMP at 1800 today. We will continue with D5 half-normal saline, 1 amp of bicarb at 50 cc per hour and reevaluate. We will treat as needed. We will also stop her lisinopril, furosemide, and metformin as these could be contributing to her hyperkalemia in the setting of acute kidney injury. 2. Acute kidney injury. The patient does have an elevated BUN and creatinine above her baseline. We will repeat a BMP at 1800. Continue to monitor her renal function. I will get a post void residual bladder scan to evaluate for urinary retention as a cause of her progressively worsening renal function as well. We will monitor strict I's and O's and avoid nephrotoxic medications. Will continue IVF overnight if BUN/Creatinine improve can discontinue IVF in the AM. 3. Paroxysmal atrial flutter/sick sinus syndrome/tachybrady syndrome, status post pacemaker. Management per Cardiology. 4. Left pneumothorax. Management per Surgery/Cardiology. 5. DVT prophylaxis: We will continue her Eliquis. 6. Code status: She is DNR with trial of intubation. 7. FEN: She can have a heart-healthy, caffeine okay diet. TIME SPENT: Time spent on this consultation was 45 minutes, greater than half that time was spent at the bedside reviewing events leading thus far to her hospitalization, performing physical exam, and reviewing my plan of care. I have discussed this with my attending, Dr. Daniel Sevilla; he is in agreement with my plan. SHAHRZDA MOYER, DRIVER'S LICENSE REVIEWING OFFICER [id number]/CPS #: [id number] BRYANT
[2019-05-30 18:02] LABS: BUN/Creatinine Ratio 29.9 (8-20); Calcium 8.5 mg/dL (8.6-10.3); EGFR African American 36.1 (>60); EGFR Non-African American 29.8 (>60); Magnesium 2.2 mg/dL (1.9-2.7); Potassium 4.9 mmol/L (3.5-5.0)
[2019-05-30] MEDS: Atorvastatin* 10 MG TAB PO SCH (20:34)
[2019-05-30] MEDS: Acetaminophen TAB* 325 MG PO PRN (22:15)
[2019-05-31] MEDS: Acetaminophen TAB* 325 MG PO PRN ×2 (04:48→08:56)
[2019-05-31 06:03] LABS: BUN/Creatinine Ratio 30.6 (8-20); Calcium 8.1 mg/dL (8.6-10.3); EGFR African American 37.2 (>60); EGFR Non-African American 30.7 (>60); Magnesium 2.2 mg/dL (1.9-2.7); Potassium 4.5 mmol/L (3.5-5.0)
[2019-05-31 08:06] VITALS: BP 107/56
--- NOTE | 2019-05-31 08:54 | PN ---
Subjective Date of Service: 05/31/19 Interval History: Patient seen today, she offers no chest pain no shortness of breath. appetite is moderate. Past Medical History: Unchanged from Admission Objective Active Medications: Acetaminophen (Tylenol Tab*) 650 mg PO Q4H PRN PRN Reason: PAIN - MILD Last Admin: 05/31/19 04:48 Dose: 650 mg Amiodarone HCl (Cordarone Tab*) 100 mg PO DAILY [facility] Last Admin: 05/30/19 08:25 Dose: 100 mg Apixaban (Eliquis*) 2.5 mg PO BID [facility] Last Admin: 05/30/19 20:33 Dose: 2.5 mg Atorvastatin Calcium (Lipitor*) 10 mg PO BEDTIME [facility] Last Admin: 05/30/19 20:34 Dose: 10 mg Diazepam (Valium Tab(*)) 5 mg PO ONCE PRN PRN Reason: ONCALL TO CATHLAB Docusate Sodium (Colace Cap*) 100 mg PO DAILY PRN PRN Reason: CONSTIPATION Last Admin: 05/29/19 08:11 Dose: 100 mg Magnesium Hydroxide (Milk Of Magnesia Liq*) 30 ml PO BID PRN PRN Reason: CONSTIPATION Last Admin: 05/29/19 14:35 Dose: 30 ml Magnesium Oxide (Magox 400 Tab*) 400 mg PO BID [facility] Last Admin: 05/30/19 20:34 Dose: 400 mg Metoprolol Succinate (Toprol Xl Tab*) 25 mg PO BID [facility] Last Admin: 05/30/19 20:34 Dose: 25 mg Oxycodone/Acetaminophen (Percocet 5/325 Tab*) 1 tab PO Q4H PRN PRN Reason: PAIN - MODERATE Last Admin: 05/28/19 18:27 Dose: 1 tab Pantoprazole Sodium (Protonix Tab*) 40 mg PO DAILY [facility] Last Admin: 05/30/19 08:25 Dose: 40 mg Vital Signs - 8 hr 05/31/19 05/31/19 05/31/19 01:00 03:15 05:00 Temperature 97.6 F Pulse Rate 60 Respiratory 18 Rate Blood Pressure 111/60 (mmHg) O2 Sat by Pulse 98 99 99 Oximetry 05/31/19 05/31/19 07:15 07:26 Temperature 98.1 F Pulse Rate 59 Respiratory 20 18 Rate Blood Pressure 107/56 (mmHg) O2 Sat by Pulse 99 Oximetry Oxygen Devices in Use Now: None Appearance: awake, alert no distress Eyes: No Scleral Icterus, - - EOMI Ears/Nose/Mouth/Throat: Mucous Membranes Moist Neck: NL Appearance and Movements; NL JVP, Trachea Midline Respiratory: Symmetrical Chest Expansion and Respiratory Effort, - - no rales Cardiovascular: NL Sounds; No Murmurs; No JVD, - - +2 edema Neurological: Alert and Oriented x 3 Result Diagrams: 05/30/19 06:45 05/31/19 05:22 Assess/Plan/Problems-Billing Assessment: 83 y/o female admitted for PPM develloped acute Kidney injury with hyperkalemia - Patient Problems (1) Hyperkalemia Current Visit: Yes Status: Acute Code(s): E87.5 - HYPERKALEMIA SNOMED Code (s): 62097587 Comment: - resolved - Secondary to KISHOR in addition to CKD with underlying DM, CHF and medications induced - S/p IVF with HCO3- and hold lisinopril, metformin, and lisinopril (2) Acute kidney injury superimposed on CKD Current Visit: Yes Status: Acute Code(s): N17.9 - ACUTE KIDNEY FAILURE, UNSPECIFIED; N18.9 - CHRONIC KIDNEY DISEASE, UNSPECIFIED SNOMED Code(s): 57395784 Comment: - Multifactorial secondary to CKD with underlying CHF exacerbated by nephrotoxic drug which is required for her CHF - I would not restart metformin, consider Jardiance. Will defer that to her PCP - I would wait to resume lisinopril until outpatient BMP follow up - Ok to resume lasix if required and when appropriate by cardiology (3) CHF (congestive heart failure) Current Visit: Yes Status: Acute Code(s): I50.9 - HEART FAILURE, UNSPECIFIED SNOMED Code(s): 03463183 Comment: - Held her Lasix and ALAYNA to KISHOR - Recommend resume lasix when appropriate as per cardiology and defer lisinopril until outpatient BMP follow up. Would recommend lower dose (4) Atrial flutter Current Visit: Yes Status: Acute Code(s): I48.92 - UNSPECIFIED ATRIAL FLUTTER SNOMED Code(s): 8573416 (5) Pneumothorax Current Visit: Yes Status: Acute Code(s): J93.9 - PNEUMOTHORAX, UNSPECIFIED SNOMED Code(s): 26604449 (6) DM2 (diabetes mellitus, type 2) Current Visit: No Status: Acute Comment: I recommend to avoid restarting metformin consider Jardiance , but will defer to outpatient and pcp Status and Disposition: Off IVF, medically stable. will follow up prn.
[2019-05-31] MEDS: Metoprolol Succinate XL TAB* 25 MG PO SCH (08:56)
[2019-05-31] MEDS: Magnesium Oxide TAB* 400 MG PO SCH (08:57)
[2019-05-31] MEDS: Amiodarone TAB* 200 MG PO SCH (08:57)
[2019-05-31] MEDS: Pantoprazole TAB * 40 MG TAB PO SCH (08:57)
[2019-05-31] MEDS: Apixaban* 2.5 MG TAB PO SCH (08:57)
--- NOTE | 2019-05-31 14:33 | DS ---
DISCHARGE SUMMARY: DATE OF ADMISSION: 05/24/19 DATE OF DISCHARGE: 05/31/19 INDICATION FOR ADMISSION: Dual-chamber pacemaker implantation due to sick sinus syndrome. Please see admission history and physical for details of her presentation. In general, the patient is an 83-year-old woman with a history of atrial flutter, history of sick sin us syndrome, who has been having difficulty with heart rate control and rhythm control despite being on amiodarone and beta-blockers. The patient was diagnosed with sick sinus syndrome, dual-chamber pe rmanent pacemaker was recommended. The patient came to the hospital. The patient underwent dual-chamber pacemaker implantation. The pa cemaker implantation was complicated by difficulty with sensing of the atrial lead, otherwise the hermes tricular lead was functioning normally. The patient was moved to her hospital bed. She had no diffi culties overnight. The next morning, her blood pressure was low and she was having some minimal shor tness of breath. Chest x-ray showed a moderate-sized pneumothorax on the left. Surgery was consulte d and a Heimlich valve was placed in the left upper chest, this was removed 2 days later. The patient slowly became more anuric and her renal function deteriorated. The patient also had low sodium. The patient's medications were adjusted. Her metformin was stopped, her lisinopril was stop ped, her Lasix was stopped and her kidney function started to improve. The patient's baseline renal function is 1.3, today it is 1.6 and stable. DISCHARGE MEDICATIONS: 1. Dulcolax stool suppository 100 mg as needed. 2. Eliquis 2.5 mg twice a day. 3. Amiodarone 200 mg a day. 4. Magnesium oxide 400 mg 2 tablets a day. 5. Oxycodone as needed. 6. Omeprazole 20 mg a day. 7. Metformin will be on hold. 8. Iron tablets 18 mg 3 times a day. 9. Vitamin B12. 10. Atorvastatin 10 mg a day. 11. Lisinopril 20 mg a day will be on hold. 12. Lasix 20 mg a day as directed will be on hold. 13. Tylenol as directed. 14. Vitamin C tablets 500 mg daily. 15. Metoprolol succinate 12.5 mg a day. ALLERGIES: No known drug allergies. PAST MEDICAL HISTORY: Includes arthritis, diabetes, gastroesophageal reflux disease, left bundle-bra nch blocks, hyponatremia, palpitation, sick sinus syndrome, permanent pacemaker implantation on 05/24. PHYSICAL EXAM: Height is 5 feet, weight is 164 pounds, temperature 98.1, heart rate is 60 and AV pac ed, respiratory rate is 20, oxygen saturation 99% on room air, blood pressure 107/56. Sclerae are an icteric. Oropharynx is pink without erythema. Carotids are 2+ without bruits. JVD is normal. Thyr oid is cherelle. Cardiac Exam: S1, S2 without any murmurs, rubs, or gallops. Lungs are clear to auscul tation. Extremities show no edema. She has 2+ pulses throughout. The patient is awake, alert, and oriented. She moves all 4 extremities equally. Her mitchell were removed and after her pacemaker sit e. Her pacemaker site was intact. No hematoma, no erythema. Again, her telemetry shows that she is AV paced at 60 beats per minute. DISPOSITION: The patient will be discharged to [facility] for short-term rehab. FOLLOWUP: The patient will follow up with me in 1 month. [id number]/[facility] #: [id number]
== END 2019-05-31 14:11 | DRG 243 ==
LOC: CHICATH 06:54 → MEDTELE 09:52 → INTOOBSV 09:52 → UNDOADMIN 10:21 → MEDTELE 10:21 → OBSVTOIN 05-26 11:32
PROVIDERS: ADMIT Specialist; ATTEND Specialist
PROC: 02H63JZ Insertion of Pacemaker Lead into Right Atrium, Percutaneous Approach (ICD-10-PCS; 2019-05-25)
PROC: 02HK3JZ Insertion of Pacemaker Lead into Right Ventricle, Percutaneous Approach (ICD-10-PCS; 2019-05-25)
PROC: 0JH606Z Insertion of Pacemaker, Dual Chamber into Chest Subcutaneous Tissue and Fascia, Open Approach (ICD-10-PCS; principal; 2019-05-25 08:00)
PROC: 0W9B30Z Drainage of Left Pleural Cavity with Drainage Device, Percutaneous Approach (ICD-10-PCS; 2019-05-26)
DX: I49.5 Sick sinus syndrome (principal); J95.811 Postprocedural pneumothorax; E87.1 Hypo-osmolality and hyponatremia; I48.92 Unspecified atrial flutter; I13.0 Hypertensive heart and chronic kidney disease with heart failure and stage 1 through stage 4 chronic kidney disease, or unspecified chronic kidney disease; N17.9 Acute kidney failure, unspecified; I95.9 Hypotension, unspecified; R34 Anuria and oliguria; M19.90 Unspecified osteoarthritis, unspecified site; K21.9 Gastro-esophageal reflux disease without esophagitis; I44.7 Left bundle-branch block, unspecified; E78.5 Hyperlipidemia, unspecified; I42.9 Cardiomyopathy, unspecified; R94.31 Abnormal electrocardiogram [ECG] [EKG]; I48.0 Paroxysmal atrial fibrillation; K59.00 Constipation, unspecified; I50.9 Heart failure, unspecified; N18.9 Chronic kidney disease, unspecified; D64.9 Anemia, unspecified; E87.5 Hyperkalemia; E11.22 Type 2 diabetes mellitus with diabetic chronic kidney disease; Z66 Do not resuscitate; Z82.49 Family history of ischemic heart disease and other diseases of the circulatory system; Z83.3 Family history of diabetes mellitus; Z79.01 Long term (current) use of anticoagulants; Z79.84 Long term (current) use of oral hypoglycemic drugs; Z80.1 Family history of malignant neoplasm of trachea, bronchus and lung
CPT/HCPCS: 33208; 36415; 71045; 71046; 80048; 83605; 83735; 85025; 85027; 90686; 93005; 99156; 99157; A9270-GY; C1785; C1892; C1898; G8978-GP-CL; G8979-GP-CJ; J0690; J1940; J2250; J3010; J3475; J3490

== ENCOUNTER 2019-08-08 18:54 | Emergency (ER) | payer MEDICARE, BC ==
--- OUTSIDE RECORDS SUMMARY | 2019-08-08 19:03 | XMS REPORT ---
:1935 Author Organization [facility] Care Team Providers Name Role Phone Unavailable Unavailable Unavailable Problems Condition Condition Condition Status Onset Resolution Last Treating Comments Name Details Category Date Date Treatment Clinician Date Pain frequent Pain Mgmt Resolve 2018-092019-07-07 Poly pain d 0-11 13:30:00 (Lee) 11:15: Rosario 00 [id number] Respiratory dyspnea Respirator Resolve 2018-092019-07-07 Poly present y d 0-11 13:30:00 (Lee) 11:15: Rosario [id number] Sensory impaired Sensory Resolve 2018-092019-07-07 Poly hearing d 0-11 13:30:00 (Lee) 11:15: Rosario 00 [id number] Integument surgical Integument Resolve 2018-092019-07-07 Poly wound d 0-11 13:30:00 (Lee) present 11:15: Rosario [id number] Integument skin Integument Resolve 2018-092019-07-07 Poly integrity d 0-11 13:30:00 (Lee) risk 11:15: [id number] Nutrition nutritional Nutrition Resolve 2018-092019-07-07 Poly restriction d 0-11 13:30:00 (Lee) s 11:15: Rosario 00 [id number] Elimination urinary Eliminatio Resolve 2018-092019-07-07 Poly incontinenc n d 0-11 13:30:00 (Lee) e 11:15: Rosario 00 [id number] Neuro confusion Neuro/Emot Resolve 2018-092019-07-07 Poly present ion d 0-11 13:30:00 (Lee) 11:15: Rosario 00 [id number] Activity ADL Activity Resolve 2018-092019-07-07 Poly assistance d 0-11 13:30:00 (Lee) required 11:15: Rosario 00 [id number] Activity self-care Activity Resolve 2018-092019-07-07 Poly deficit d 0-11 13:30:00 (Lee) 11:15: Rosario [id number] Safety fall risk Safety Resolve 2018-092019-07-07 Poly factor d 0-11 13:30:00 (Lee) present 11:15: Rosario [id number] Safety risk for Safety Resolve 2018-092019-07-07 Poly hospitaliza d 0-11 13:30:00 (Lee) tion 11:15: Rosario [id number] Safety can be left Safety Resolve 2018-092019-07-07 Poly alone for d 0-11 13:30:00 (Lee) only short 11:15: Rosario [id number] Medication oral med Meds Resolve 2018-092019-07-07 Poly assistance d 0-11 13:30:00 (Lee) required 11:15: Rosario [id number] Musculoskel transfer Musculoske Resolve 2018-092019-07-07 Poly etal assistance letal d 0-11 13:30:00 (Lee) required 11:15: Rosario [id number] Musculoskel requires Musculoske Resolve 2018-092019-07-07 Poly etal human letal d 0-11 13:30:00 (Lee) assist to 11:15: Rosario leave home 00 [id number] Bed knowledge/s PT/OT: Bed Resolve 2018-092019-07-07 María Elena Mobility/Tr kill Mobility/T d 0-17 13:30:00 Henderson ansfer deficit: pt ransfer 13:04: [id number] Gait/Locomo stair PT/OT: Resolve 2018-092019-07-07 María Elena tion management Gait/Locom d 0-17 13:30:00 Henderson problems req otion 13:04: [id number] Gait/Locomo knowledge/s PT/OT: Resolve 2018-092019-07-07 María Elena tion kill Gait/Locom d 0-17 13:30:00 Henderson problems deficit: pt otion 13:04: [id number] Allergies, Adverse Reactions, Alerts Allergy Allergy Status Severity Reaction(s) Onset Inactive Treating Comments Name Type Date Date Clinician Unknown None Active Unknown None Unknown No Known Allergies For This Patient Medications Ordered Filled Start Stop Current Ordering Indication Dosage Frequency Signature Comments Components Medication Medication Date Date Medication? Clinician (SIG) Name Name amiodarone amiodarone 2018-09- Yes Bagley Unknown Unknown 100 mg 100 mg 07-07 Morgan FINK tablet tablet ascorbic ascorbic 2018-09- Yes Bagley Unknown Unknown acid acid 07-07 Morgan FINK (vitamin C) (vitamin C) 500 mg 500 mg capsule capsule atorvastati atorvastati 2018-09- Yes Bagley Unknown Unknown n 10 mg n 10 mg 07-07 Morgan FINK tablet tablet cyanocobala cyanocobala 2018-09- Yes Bagley Unknown Unknown min (vit min (vit 07-07 Morgan FINK B-12) 1,000 B) 1,000 mcg tablet mcg tablet magnesium magnesium 2018-09- Yes Bagley Unknown Unknown oxide 400 oxide 400 07-07 Morgan FINK mg (241.3 mg (241.3 mg mg magnesium) magnesium) tablet tablet metoprolol metoprolol 2018-09- Yes Bagley Unknown Unknown succinate succinate 07-07 Morgan FINK ER 25 mg ER 25 mg tablet,exte tablet,exte nded nded release 24 release 24 hr hr omeprazole omeprazole 2018-09- Yes Bagley Unknown Unknown 20 mg 20 mg 07-07 Morgan FINK capsule,del capsule,del ayed ayed release release apixaban apixaban 2018-09- Yes Bagley Unknown Unknown 2.5 mg 2.5 mg 07-07 Morgan FINK tablet tablet Colace 100 Colace 100 2018-09- Yes Bagley Unknown Unknown mg capsule mg capsule 07-07 Morgan FINK ferrous ferrous 2018-09- Yes Bagley Unknown Unknown sulfate 325 sulfate 325 07-07 Morgan FINK mg (65 mg mg (65 mg iron) iron) tablet,michael tablet,michael yed release yed release SITagliptin SITagliptin 2018-09- Yes Bagley Unknown Unknown 25 mg 25 mg 07-07 Morgan FINK tablet tablet furosemide furosemide 2018-09- Yes Bagley Unknown Unknown 40 mg 40 mg 07-07 Morgan FINK tablet tablet Vital Signs Vital Name Observation Time Observation Value Comments SYSTOLIC mm[Hg] 2019-07-11 18:08:33 110 mm[Hg] mm[Hg] Method: Sit SYSTOLIC mm[Hg] 2019-06-28 18:08:20 130 mm[Hg] mm[Hg] Method: Stand DIASTOLIC mm[Hg] 2019-07-11 18:08:33 42 mm[Hg] mm[Hg] Method: Sit DIASTOLIC mm[Hg] 2019-06-28 18:08:20 66 mm[Hg] mm[Hg] Method: Stand PULSE 2019-07-11 18:08:33 62 /min /min TEMP 2019-07-11 18:08:33 95.3 [degF] Procedures This patient has no known procedures. Results This patient has no known results.
--- OUTSIDE RECORDS SUMMARY | 2019-08-08 19:03 | XMS REPORT | Continuity of Care Document ---
:1935 External Reference #:[id number] Author Name Ariane Snow Care Team Providers Name Role Phone Jamel Seymour NP - Family Care Team Information Search Planner [phone] Problems Description No Information Available Social History Type Date Description Comments Sex Unknown Tobacco Use Start: Unknown Never Smoked Cigarettes Smoking Status Reviewed: 06/17/19 Never Smoked Cigarettes ETOH Use Denies alcohol use Tobacco Use Start: Unknown Patient has never smoked Recreational Drug Use Denies Drug Use Exercise Type/Frequency Does not exercise Allergies, Adverse Reactions, Alerts Description No Known Drug Allergies Medications Active Medications SIG Qnty Indications Ordering Date Provider Amiodarone HCL 1 by mouth every 90tabs Osmel Lee 07/16/2019 200mg day Dwayne Fisher Tablets Metoprolol Succinate 1/2 tab by mouth 90tabs Acacia Joyner, 05/12/2019 ER every day N.P. 25mg Tablets ER 24HR Dulcolax Stool prn Acacia Joyner, 09/25/2018 Softener N.P. 100mg Capsules Eliquis Take 1 Tablet By 60tabs Acacia Joyner, 09/25/2018 2.5mg Tablets Mouth Twice A Day N.P. Magnesium Oxide 2 by mouth every Unknown 400mg day Tablets Oxycodone-Acetaminoph as needed Unknown en Omeprazole 1 by mouth every Unknown 20mg day Capsules DR Metformin HCL take 1 tablets by Unknown 500mg mouth twice a day Tablets Iron 1 po twice daily Unknown 18mg Tablets ER Vitamin B12 2 by mouth every Unknown 1000mcg day Tablets ER Atorvastatin Calcium 1 by mouth every Unknown day 10mg Tablets Lisinopril 1 by mouth every Unknown 20mg Tablets day Furosemide Take 2 Tablets On 45tabs Acacia Joyner, 20mg Tablets Friday, Friday N.P. & Friday And 1 Tablet On Friday, , Friday & Friday Tylenol 8 Hour 650mg by mouth Unknown 650mg q6hr as needed Tablets ER pain History Medications Metoprolol Succinate 1/2 by mouth 30tabs I48.92 Acaciapura Joyner, 2018 - ER every day N.P. 05/11/2019 25mg Tablets ER 24HR Immunizations Description No Information Available Vital Signs Date Vital Result Comment 06/17/2019 11:52am Height 61 inches 5'1" Heart Rate 60 /min BP Systolic Sitting 150 mmHg right-reg BP Diastolic Sitting 68 mmHg right-reg Respiratory Rate 20 /min Body Temperature 98.0 F O2 % BldC Oximetry 98 % 05/12/2019 8:28am Height 61 inches 5'1" Weight 168.38 lb with shoes Heart Rate 116 /min BP Systolic Sitting 144 mmHg Rue (regular cuff) BP Diastolic Sitting 74 mmHg Rue (regular cuff) BMI (Body Mass Index) 31.8 kg/m2 Results Test Acquired Date Facility Test Result H/L Range Note Cath Panel 05/22/2019 [facility] Partial 44.7 seconds High 26.0-38.[address] [place] [address] PTT [phone] CBC Auto 05/22/2019 [facility] White Blood 5.7 10^3/uL Normal 3.5-10.[address] [place] [address] [phone] Red Blood Count 3.52 10^6/uL Low 3.70-4.87 Hemoglobin 8.6 g/dL Low 12.0-16.0 Hematocrit 27 % Low 35-47 Mean Corpuscular Volume 78 fL Low 80-97 Mean Corpuscular Hemoglobin 24 pg Low 27-31 Mean Corpuscular HGB Conc 31 g/dL Normal 31-36 Red Cell Distribution Width 20 % High 10-15 Platelet Count 240 10^3/uL Normal 150-450 Mean Platelet Volume 8.8 fL Normal 7.4-10.4 Abs Neutrophils 4.1 10^3/uL Normal 1.5-7.7 Abs Lymphocytes 0.9 10^3/uL Low 1.0-4.8 Abs Monocytes 0.5 10^3/uL Normal 0-0.8 Abs Eosinophils 0.1 10^3/uL Normal 0-0.6 Abs Basophils 0.1 10^3/uL Normal 0-0.2 Abs Nucleated RBC 0.0 10^3/uL Granulocyte % 72.2 % Lymphocyte % 16.3 % Monocyte % 8.5 % Eosinophil % 2.1 % Basophil % 0.9 % Nucleated Red Blood Cells % 0.0 Inr/Protime 05/22/2019 [facility] Inr 1.74 High 0.82-1.09 1 [address] [place] [address] [phone] Basic Metabolic 05/22/2019 [facility] Sodium 136 mmol/L Normal 135-145 Panel [address] [place] [address] [phone] Potassium 4.3 mmol/L Normal 3.5-5.0 Chloride 104 mmol/L Normal 101-111 Co2 Carbon Dioxide 23 mmol/L Normal 22-32 Anion Gap 9 mmol/L Normal 2-11 Glucose 187 mg/dL High 70-100 Blood Urea Nitrogen 27 mg/dL High 6-24 Creatinine 1.33 mg/dL High 0.51-0.95 BUN/Creatinine Ratio 20.3 High 8-20 Calcium 8.4 mg/dL Low 8.6-10.3 Egfr Non- 38.0 >60 Egfr 46.0 >60 2 1 Standard intensity warfarin therapeutic range: 2.0-3.0 High intensity warfarin therapeutic range: 2.5-3.5 2 Because ethnic data is not always readily available, this report includes an eGFR for both -Americans and non- Americans. The National Kidney Disease Education Program (NKDEP) does not endorse the use of the MDRD equation for patients that are not between the ages of 18 and 70, are , have extremes of body size, muscle mass, or nutritional status, or are non- or non-. According to the National Kidney Foundation, irrespective of diagnosis, the stage of the disease is based on the level of kidney function: Stage Description GFR(mL/min/1.73 m(2)) 1 Kidney damage with normal or decreased GFR 90 2 Kidney damage with mild decrease in GFR 60-89 3 Moderate decrease in GFR 30-59 4 Severe decrease in GFR 15-29 5 Kidney failure <15 (or dialysis) Procedures Date Code Description Status 06/03/2019 71982 Pace Maker Eval W/Iterative Adjment Dual Lead Completed 05/30/2019 21780 EKG, Interpretation Only Completed 05/28/2019 05886 EKG, Interpretation Only Completed 05/26/2019 33712 EKG, Interpretation Only Completed 05/25/2019 46709 Perm Pacemaker Av Sequential Atrial And Ventricular Completed 05/12/2019 79712 EKG Tracing & Interpretation Completed 05/12/2019 26820 EKG Tracing & Interpretation Completed 05/10/2019 91380 EKG, Interpretation Only Completed 05/10/2019 40998 Moderate Sedation Services; Same Phys Intl 15 Mins; PT >= Completed 5 Years 05/10/2019 16133 Cardioversion Completed 05/07/2019 16285 EKG Tracing & Interpretation Completed 03/26/2019 42682 EKG Tracing & Interpretation Completed 03/23/2019 30548 EKG Tracing & Interpretation Completed 03/23/2019 22087 EKG Tracing & Interpretation Completed Medical Devices Description No Information Available Encounters Type Date Location Provider Dx Diagnosis Office Visit 05/31/2019 [facility] Daniel N17.9 Acute kidney 9:14a jorge Gustafson M.D. failure, Hospitalists unspecified N18.9 Chronic kidney disease, unspecified I50.9 Heart failure, unspecified E11.9 Type 2 diabetes mellitus without complications Office Visit 05/30/2019 1:22p [facility] Sarah Castro I50.9 Heart failure, Of Jayro Rice unspecified E87.5 Hyperkalemia N18.9 Chronic kidney disease, unspecified D64.9 Anemia, unspecified R53.1 Weakness Office Visit 05/30/2019 9:14a [facility] Shahrzad E87.5 Hyperkalemia jorge Gustafson NP Hospitalists N17.9 Acute kidney failure, unspecified Office Visit 05/29/2019 1:22p [facility] Sarah Castro I50.9 Heart failure, Of Jayro Rice unspecified J93.9 Pneumothorax, unspecified N18.9 Chronic kidney disease, unspecified D64.9 Anemia, unspecified E87.1 Hypo-osmolality and hyponatremia R53.1 Weakness Office Visit 05/28/2019 9:28a [facility] J93.9 Pneumothorax , Thuman, STATIONARY ENGINEER APPRENTICE unspecified I48.92 Unspecified atrial flutter Office Visit 05/27/2019 12:30p [facility] J93.9 Pneumothorax , Thuman, STATIONARY ENGINEER APPRENTICE unspecified I48.92 Unspecified atrial flutter Office Visit 05/26/2019 1:20p [facility] Sarah Castro, J93.9 Pneumothorax, Cardiology Of M.DRon unspecified Medical Records Clerk I48.92 Unspecified atrial flutter Office Visit 05/07/2019 [place] Acacia S. R94.31 Abnormal 9:30a Cardiology Ar, N.PRon electrocardiogram [ECG] [EKG] I44.7 Left bundle-branch block, unspecified I49.5 Sick sinus syndrome I42.9 Cardiomyopathy, unspecified I48.92 Unspecified atrial flutter Office Visit 04/07/2019 [facility] Osmel Lee R94.31 Abnormal 9:30a [facility]iology Elly Fisher M.D. electrocardiogram Medical Records Clerk [ECG] [EKG] I44.7 Left bundle-branch block, unspecified I49.5 Sick sinus syndrome I42.9 Cardiomyopathy, unspecified Office Visit 03/26/2019 11:00a [facility] Acacia S. I44.7 Left bundle -branch Foster, N.P. block, unspecified I48.92 Unspecified atrial flutter R00.2 Palpitations I49.5 Sick sinus syndrome Assessments Date Code Description Provider 06/17/2019 Z95.0 Presence of cardiac pacemaker Osmel Fisher M.D. 06/17/2019 I49.5 Sick sinus syndrome Osmel Fisher M.D. 06/17/2019 I48.92 Unspecified atrial flutter Osmel Fisher M.D. 06/03/2019 Z95.0 Presence of cardiac pacemaker Osmel Fisher M.D. 05/31/2019 Z95.0 Presence of cardiac pacemaker Osmel Fisher M.D. 05/31/2019 N17.9 Acute kidney failure, unspecified Daniel Sevilla M.D. 05/31/2019 N18.9 Chronic kidney disease, unspecified Daniel Sevilla M.D. 05/31/2019 I50.9 Heart failure, unspecified Daniel Sevilla M.D. 05/31/2019 E11.9 Type 2 diabetes mellitus without Daniel Sevilla M.D. complications 05/30/2019 I44.7 Left bundle-branch block, unspecified Sarah Castro M.D. 05/30/2019 E87.5 Hyperkalemia Shahrzad Moyer, STATIONARY ENGINEER APPRENTICE 05/30/2019 I50.9 Heart failure, unspecified Sarah Castro M.D. 05/30/2019 N17.9 Acute kidney failure, unspecified Shahrzad Moyer, STATIONARY ENGINEER APPRENTICE 05/30/2019 E87.5 Hyperkalemia Sarah Castro M.D. 05/30/2019 N18.9 Chronic kidney disease, unspecified Sarah Castro M.D. 05/30/2019 D64.9 Anemia, unspecified Sarah Castro M.D. 05/30/2019 R53.1 Weakness Sarah Castro M.D. 05/29/2019 I50.9 Heart failure, unspecified Sarah Castro M.D. 05/29/2019 J93.9 Pneumothorax, unspeccheng Castro M.D. 05/29/2019 N18.9 Chronic kidney disease, unspecified Sarah Castro M.D. 05/29/2019 D64.9 Anemia, unspecified Sarah Castro M.D. 05/29/2019 E87.1 Hypo-osmolality and hyponatremia Sarah Castro M.D. 05/29/2019 R53.1 Weakness Sarah Castro M.D. 05/28/2019 R94.31 Abnormal electrocardiogram [ECG] [EKG] Sarah Castro M.D. 05/28/2019 J93.9 Pneumothorax, unspecified Faith Thuman, STATIONARY ENGINEER APPRENTICE 05/28/2019 I48.92 Unspecified atrial flutter Faith Miauman, STATIONARY ENGINEER APPRENTICE 05/27/2019 J93.9 Pneumothorax, unspecified Faith Thuman, STATIONARY ENGINEER APPRENTICE 05/27/2019 I48.92 Unspecified atrial flutter Faith Miaalison, STATIONARY ENGINEER APPRENTICE 05/26/2019 Z95.0 Presence of cardiac pacemaker Sarah Castro M.D. 05/26/2019 J93.9 Pneumothorax, unspecified Sarah Castro M.D. 05/26/2019 I48.92 Unspecified atrial flutter Sarah Castro M.D. 05/25/2019 I49.5 Sick sinus syndrome Osmel Fisher M.D. 05/12/2019 R94.31 Abnormal electrocardiogram [ECG] [EKG] Osmel Fisher M.D. 05/12/2019 R94.31 Abnormal electrocardiogram [ECG] [EKG] Nurse Visit cc 05/12/2019 I49.5 Sick sinus syndrome Nurse Visit cc 05/10/2019 R94.31 Abnormal electrocardiogram [ECG] [EKG] Robbi Sauceda, [facility] 05/10/2019 I48.91 Unspecified atrial fibrillation Osmel Fisher M.D. 05/07/2019 R94.31 Abnormal electrocardiogram [ECG] [EKG] Osmel Fisher M.D. 05/07/2019 R94.31 Abnormal electrocardiogram [ECG] [EKG] Acacia S. Ar, N.P. 05/07/2019 I44.7 Left bundle-branch block, unspecified Acacia S. Foster, N.P. 05/07/2019 I49.5 Sick sinus syndrome Acacia S. Foster, N.P. 05/07/2019 I42.9 Cardiomyopathy, unspecified Acacia S. Foster, N.P. 05/07/2019 I48.92 Unspecified atrial flutter Acacia S. Foster, N.P. 04/07/2019 R94.31 Abnormal electrocardiogram [ECG] [EKG] Osmel Fisher M.D. 04/07/2019 I44.7 Left bundle-branch block, unspecified Osmel Fisher M.D. 04/07/2019 I49.5 Sick sinus syndrome Osmel Fisher M.D. 04/07/2019 I42.9 Cardiomyopathy, unspecified Osmel Fisher M.D. 03/26/2019 R94.31 Abnormal electrocardiogram [ECG] [EKG] Sumit Lanza M.D. 03/26/2019 I44.7 Left bundle-branch block, unspecified Acacia Joyner, N.P. 03/26/2019 I48.92 Unspecified atrial flutter Acacia Joyner, N.P. 03/26/2019 R00.2 Palpitations Acacia Joyner, N.P. 03/26/2019 I49.5 Sick sinus syndrome Acacia Joyner, N.P. 03/23/2019 I48.0 Paroxysmal atrial fibrillation Nurse Visit IC 03/23/2019 I44.7 Left bundle-branch block, unspecified Nurse Visit IC 03/23/2019 I48.0 Paroxysmal atrial fibrillation Osmel Fisher M.D. 03/23/2019 I48.92 Unspecified atrial flutter Nurse Visit IC 02/11/2019 I49.5 Sick sinus syndrome Acacia Joyner, N.P. Plan of Treatment 06/17/2019 - Osmel Fisher M.D.Z95.0 Presence of cardiac pacemakerFollow up: 6 monthsRecommendations:Patient has no arm or activity [id number] Sick sinus [id number] Unspecified atrial flutter Functional Status Description No Information Available Mental Status Description No Information Available Referrals Description No Information Available
--- OUTSIDE RECORDS SUMMARY | 2019-08-08 19:03 | XMS REPORT | Continuity of Care Document ---
:1935 External Reference #:[id number] Author Name Osmel Fisher M.D. (transmitted by agent of provider Zoe Webb) Address [address] [place] [address] Care Team Providers Name Role Phone Jamel Seymour NP - Family Care Team Information Web Production Designer [phone] Problems Description No Information Available Social History [...] Medications SIG Qnty Indications Ordering Provider Date Metoprolol Succinate 1/2 tab by mouth 90tabs Acacia Joyner, 05/12/2019 ER every day N.P. 25mg Tablets ER 24HR Dulcolax Stool prn Acacia Joyner, 09/25/2018 Softener N.P. 100mg Capsules Eliquis Take 1 Tablet By 60tabs Acacia Joyner, 09/25/2018 2.5mg Tablets Mouth Twice A N.P. Day Amiodarone HCL 1 by mouth every 90tabs Osmel Fisher, 05/13/2018 100mg day M.D. Tablets Magnesium Oxide 2 by mouth every Unknown 400mg day Tablets Oxycodone-Acetaminophe as needed Unknown n Omeprazole 1 by mouth every Unknown 20mg Capsules day DR Metformin HCL take 1 tablets Unknown 500mg by mouth twice a Tablets day Iron 1 po twice daily Unknown 18mg Tablets ER Vitamin B12 2 by mouth every Unknown 1000mcg day Tablets ER Atorvastatin Calcium 1 by mouth every Unknown 10mg day Tablets Lisinopril 1 by mouth every Unknown 20mg Tablets day Furosemide 1 tab by mouth 45tabs Acacia Joyner, 20mg Tablets every daily; 2 N.P. tabs by mouth mon, wed, fri Tylenol 8 Hour 650mg by mouth Unknown [...] (Body Mass Index) 31.8 kg/m2 Results Test Date Facility Test Result H/L Range Note Cath Panel 05/22/2019 [facility] Partial 44.7 seconds High 26.0-38.[address] [address] PTT [phone] CBC Auto 05/22/2019 [facility] White Blood 5.7 10^3/uL Normal 3.5-10.[address] [place] [address] [phone] Red Blood Count 3.52 10^6/uL Low 3.70-4.87 [...] Red Blood Cells % 0.0 Inr/Protime 05/22/2019 [facility] Inr 1.74 High 0.82-1.09 1 [address] [place] [address] [phone] Basic Metabolic 05/22/2019 [facility] Sodium 136 mmol/L Normal 135-145 Panel [address] [place] [address] [phone] Potassium 4.3 mmol/L Normal 3.5-5.0 Chloride 104 [...] dialysis) Procedures Date Code Description Status 06/03/2019 36386 Pace Maker Eval W/Iterative Adjment Dual Lead Completed 05/25/2019 30237 Perm Pacemaker Av Sequential Atrial And Ventricular Completed 05/12/2019 60081 EKG Tracing & Interpretation Completed 05/12/2019 28144 EKG Tracing & Interpretation Completed 05/10/2019 47378 Moderate Sedation Services; Same Phys Intl 15 Mins; PT >= Completed 5 Years 05/10/2019 07612 Cardioversion Completed 05/07/2019 27998 EKG Tracing & Interpretation Completed 03/26/2019 61474 EKG Tracing & Interpretation Completed 03/23/2019 02100 EKG Tracing & Interpretation Completed 03/23/2019 06050 EKG Tracing & Interpretation Completed 01/12/2019 55854 Holter Monitor Review (24 hr)dr kavon & interp only Completed 01/06/2019 32456 ECG Monitor/Recording W/Visual Superimposition Scanning Completed Medical Devices Description No Information Available Encounters Type Date Location Provider Dx Diagnosis Office Visit 05/31/2019 [facility] Daniel N17.9 Acute kidney 9:14a jorge Gustafson M.D. failure, Hospitalists unspecified N18.9 Chronic kidney disease, unspecified I50.9 Heart failure, unspecified E11.9 Type 2 diabetes mellitus without complications Office Visit 05/30/2019 1:22p [facility] Sarah Castro I50.9 Heart failure, Of Jayro Rice unspecified E87.5 Hyperkalemia N18.9 Chronic kidney disease, unspecified D64.9 Anemia, unspecified R53.1 Weakness Office Visit 05/30/2019 9:14a [facility] Shahrzad E87.5 Hyperkalemia Assjorge miranda NP Hospitalists N17.9 Acute kidney failure, unspecified Office Visit 05/29/2019 1:22p [facility] Sarah Castro I50.9 Heart failure, Of Ophthalmic Medical Assistant M.D. unspecified J93.9 Pneumothorax, unspecified N18.9 Chronic kidney disease, unspecified D64.9 Anemia, unspecified E87.1 Hypo-osmolality and hyponatremia R53.1 Weakness Office Visit 05/28/2019 9:28a [facility] Faith J93.9 Pneumothorax , Thuman, MECHANICAL FIELD ENGINEER unspecified I48.92 Unspecified atrial flutter Office Visit 05/27/2019 12:30p [facility] J93.9 Pneumothorax , Thuman, MECHANICAL FIELD ENGINEER unspecified I48.92 Unspecified atrial flutter Office Visit 05/26/2019 1:20p [facility] Sarah Castro, J93.9 Pneumothorax, Cardiology Of M.D. unspecified Ophthalmic Medical Assistant I48.92 Unspecified atrial flutter Office Visit 05/07/2019 [facility] Acacia S. R94.31 Abnormal 9:30a Cardiology Ar, N.PRon electrocardiogram [ECG] [EKG] I44.7 Left bundle-branch block, unspecified I49.5 Sick sinus syndrome I42.9 Cardiomyopathy, unspecified I48.92 Unspecified atrial flutter Office Visit 04/07/2019 [facility] Osmel Lee R94.31 Abnormal 9:30a Cardiology Elly Fisher M.D. electrocardiogram [facility] [ECG] [EKG] I44.7 Left bundle-branch block, unspecified I49.5 Sick sinus syndrome I42.9 Cardiomyopathy, unspecified Office Visit 03/26/2019 11:00a [facility] Acacia SRon I44.7 Left bundle -branch Foster, N.P. block, unspecified I48.92 Unspecified atrial flutter R00.2 Palpitations I49.5 Sick sinus syndrome Office Visit 01/22/2019 10:00a [facility] Osmel Lee I48.0 Paroxysmal atrial Of Jayro Fisher M.D. fibrillation I44.7 Left bundle-branch block, unspecified R00.2 Palpitations I49.5 Sick sinus syndrome Assessments Date Code Description Provider 06/17/2019 Z95.0 Presence of cardiac pacemaker Osmel Fisher M.D. 06/17/2019 I49.5 Sick sinus syndrome Osmel Fisher M.D. 06/17/2019 I48.92 Unspecified atrial flutter Osmel Fisher M.D. 06/03/2019 Z95.0 Presence of cardiac pacemaker Osmel Fisher M.D. 05/31/2019 Z95.0 Presence of cardiac pacemaker Osmel Fisher M.D. 05/31/2019 N17.9 Acute kidney failure, unspecified Daniel Moussrahel, Dwayne 05/31/2019 N18.9 Chronic kidney disease, unspecified Daniel MoDwayne burciaga 05/31/2019 I50.9 Heart failure, unspecified Daniel Moussalldoc, Dwayne 05/31/2019 E11.9 Type 2 diabetes mellitus without Daniel Di, Dwayne complications 05/30/2019 E87.5 Hyperkalemia Shahrzad Moyer, WALDO 05/30/2019 I50.9 Heart failure, unspecified Sarah Castro M.D. 05/30/2019 N17.9 Acute kidney failure, unspecified Shahrzad Moyer, MECHANICAL FIELD ENGINEER 05/30/2019 E87.5 Hyperkalemia Sarah Castro M.D. 05/30/2019 N18.9 Chronic kidney disease, unspecified Sarah Castro M.D. 05/30/2019 D64.9 Anemia, unspecified Sarah Castro M.D. 05/30/2019 R53.1 Weakness Sarah Castro M.D. 05/29/2019 I50.9 Heart failure, unspecified Sarah Castro M.D. 05/29/2019 J93.9 Pneumothorax, unspecified Sarah Castro M.D. 05/29/2019 N18.9 Chronic kidney disease, unspecified Sarah Castro M.D. 05/29/2019 D64.9 Anemia, unspecified Sarah Castro M.D. 05/29/2019 E87.1 Hypo-osmolality and hyponatremia Sarah Castro M.D. 05/29/2019 R53.1 Weakness Sarah Castro M.D. 05/28/2019 J93.9 Pneumothorax, unspecified Faith Billingsley, MECHANICAL FIELD ENGINEER 05/28/2019 I48.92 Unspecified atrial flutter Faith Billingsley, MECHANICAL FIELD ENGINEER 05/27/2019 J93.9 Pneumothorax, unspecified Faith Billingsley, MECHANICAL FIELD ENGINEER 05/27/2019 I48.92 Unspecified atrial flutter Faithviraj Billingsley, MECHANICAL FIELD ENGINEER 05/26/2019 J93.9 Pneumothorax, unspecified Sarah Castro M.D. 05/26/2019 I48.92 Unspecified atrial flutter Sarah Castro M.D. 05/25/2019 I49.5 Sick sinus syndrome Osmel Fisher M.D. 05/12/2019 R94.31 Abnormal electrocardiogram [ECG] [EKG] Osmel Fisher M.D. 05/12/2019 R94.31 Abnormal electrocardiogram [ECG] [EKG] Nurse Visit cc 05/12/2019 I49.5 Sick sinus syndrome Nurse Visit cc 05/10/2019 I48.91 Unspecified atrial fibrillation Osmel Fisher M.D. 05/07/2019 R94.31 Abnormal electrocardiogram [ECG] [EKG] Osmel Fisher M.D. 05/07/2019 R94.31 Abnormal electrocardiogram [ECG] [EKG] Acacia S. Foster, N.P. 05/07/2019 I44.7 Left bundle-branch block, unspecified [...] 03/26/2019 I44.7 Left bundle-branch block, unspecified Acacia S. Foster, N.P. 03/26/2019 I48.92 Unspecified atrial flutter Acacia [...] I49.5 Sick sinus syndrome Acacia Joyner, N.P. 01/22/2019 I48.0 Paroxysmal atrial fibrillation Osmel Fisher M.D. 01/22/2019 I44.7 Left bundle-branch block, unspecified Osmel Fisher M.D. 01/22/2019 R00.2 Palpitations Osmel Fisher M.D. 01/22/2019 I49.5 Sick sinus syndrome Osmel Fisher M.D. 01/12/2019 I48.0 Paroxysmal atrial fibrillation Osmel Fisher M.D. 01/06/2019 I48.0 Paroxysmal atrial fibrillation Nurse Visit Plan of Treatment 06/17/2019 - Osmel Fisher M.D.Z95.0 Presence of cardiac pacemakerFollow up: 6 monthsRecommendations:Patient has no arm or activity [id number] Sick sinus rgpclbasX72.92 Unspecified atrial flutter Functional Status Description No Information Available Mental Status Description No Information Available Referrals Description No Information Available
[2019-08-08] MEDS ORDERED: Sucralfate TAB* 1 GM PO ONE (19:14)
[2019-08-08] MEDS ORDERED: Lidocaine 2% VISCOUS* 15 ML UDC PO ONE (19:14)
--- NOTE | 2019-08-08 19:15 | ED ---
Throat Pain/Nasal Congestion - HPI Summary HPI Summary: The patient is an 83 y/o F presenting to [facility] accompanied by daughter with a chief complaint of a foreign body sensation onset this morning and continuing until now. She reports that she woke up this morning and took her medications as usual, which included a vitamin C tablet. After swallowing them, she felt like the vitamin C was stuck in the esophagus as she now has a sore throat. She states that she attempted to drink liquids, eat soft food, and make herself vomit to dislodge the pill, but there has been no relief of the foreign body sensation. She denies any dysphagia with swallowing solids or liquids, shortness of breath, or vomiting. The discomfort is rated 1/10 in severity. PMHx : GERD, DM, HTN, HLD, pacemaker. Nonsmoker, no EtOH, no substance use. Medications reviewed. Allergies noted. - History of Current Complaint Chief Complaint: EDForeignBodyEsophag Hx Obtained From: Patient Onset/Duration: Sudden Onset, Still Present Severity: Mild Associated Signs And Symptoms: Positive: FB Sensation. Negative: Dysphagia Cough: None - Allergies/Home Medications Allergies/Adverse Reactions: Allergies Allergy/AdvReac Type Severity Reaction Status Date / Time No Known Allergies Allergy Verified 08/08/19 19:01 PMH/Surg Hx/FS Hx/Imm Hx Endocrine/Hematology History: Reports: Hx Anticoagulant Therapy, Hx Diabetes Cardiovascular History: Reports: Hx Auto Implanted Cardiovert Defib, Hx Hypercholesterolemia, Hx Hypertension, Hx Pacemaker/ICD - 05/2019, Other Cardiovascular Problems/Disorders - DIABETIC, HIGH CHOLESTEROL, EDEMA (MEDS) Respiratory History: Denies: Hx Asthma, Hx Chronic Obstructive Pulmonary Disease (COPD) GI History: Reports: Hx Gastroesophageal Reflux Disease History: Reports: Hx Dialysis Denies: Hx Chronic Renal Failure Musculoskeletal History: Reports: Hx Arthritis Sensory History: Reports: Hx Hearing Problem - Hard of hearing Denies: Hx Contacts or Glasses, Hx Hearing Aid Opthamlomology History: Denies: Hx Contacts or Glasses Neurological History: Denies: Other Neuro Impairments/Disorders - strokes Psychiatric History: Denies: Hx Autism - Cancer History Hx Chemotherapy: No Hx Radiation Therapy: No - Surgical History Surgical History: Yes Surgery Procedure, Year, and Place: Pace maker 2019, [facility] Hx Anesthesia Reactions: No Infectious Disease History: No Infectious Disease History: Denies: Traveled Outside the [place] in Last 30 Days - Family History Known Family History: Positive: Hypertension, Diabetes - Social History Alcohol Use: None Alcohol Amount: NONE Hx Substance Use: No Substance Use Type: Reports: None Hx Tobacco Use: No Smoking Status (MU): Never Smoked Tobacco Have You Smoked in the Last Year: No Review of Systems Positive: Sore Throat. Negative: Other - foreign body sensation; Negative: dysphagia with liquids or solids Negative: Shortness Of Breath Negative: Vomiting All Other Systems Reviewed And Are Negative: Yes Physical Exam - Summary Physical Exam Summary: Appearance: Well-appearing, Well-nourished, lying in bed comfortable Skin: Warm, dry, no obvious rash Eyes: sclera anicteric, no conjunctival pallor ENT: mucous membranes moist Neck: deferred Respiratory: No signs of respiratory distress Cardiovascular: Appears well perfused, pulses are nml Abdomen: deferred Musculoskeletal: Moving all 4 extremities without obvious discomfort Neurological: Awake and alert, mentation is normal, speech is fluent and appropriate Psychiatric: affect is normal, does not appear anxious or depressed Triage Information Reviewed: Yes Vital Signs On Initial Exam: Initial Vitals Temp Pulse Resp BP Pulse Ox 97.7 F 60 16 168/67 100 08/08/19 18:58 08/08/19 18:58 08/08/19 18:58 08/08/19 18:58 08/08/19 18:58 Vital Signs Reviewed: Yes Procedures - Sedation Patient Received Moderate/Deep Sedation with Procedure: No Diagnostics - Vital Signs Vital Signs Temp Pulse Resp BP Pulse Ox 08/08/19 18:58 97.7 F 60 16 168/67 100 - Laboratory Lab Statement: Any lab studies that have been ordered have been reviewed, and results considered in the medical decision making process. - Radiology Soft Tissue Neck XR Radiology Interpretation Completed By: ED Physician Summary of Radiographic Findings: Impression: Appears normal. No extra luminal air. ED physician has reviewed and interpreted this report. Pending official read. Re-Evaluation - Re-Evaluation First Eval Re-Evaluation Time: 20:00 Change: Improved Comment: Throat discomfort improved with medications. We discussed results and discharge plan. EENT Course/Dx - Course Course Of Treatment: Patient is an 83 y/o F with chief complaint of foreign body sensation after taking a vitamin C tablet this morning despite multiple attempts and methods to dislodge the pill. She denies dysphagia with solids or liquids as she is able to swallow them. Physical exam is negative for acute abnormalities. In the ED course, the patient was administered a GI cocktail and Carafate for the discomfort. Medications relieved the patient's symptoms. Soft Tissue Neck plain film is negative for signs of foreign body or significant esophageal changes. We discussed all results and plan for discharge home with rx for Carafate. She understands and agrees with this plan. Dx of pill-induced esophagitis. - Diagnoses Provider Diagnoses: Pill esophagitis Discharge ED - Sign-Out/Discharge Documenting (check all that apply): Patient Departure - Patient will be discharged home. - Discharge Plan Condition: Good Disposition: HOME Prescriptions: Sucralfate TAB* [Carafate*] 1 gm PO ACHS #60 tab Patient Education Materials: Corrosive Esophagitis (ED) Referrals: Jamel Seymour, MAINTENANCE DEPARTMENT MANAGER [Primary Care Provider] - 3 Days Additional Instructions: This type of injury to the esophagus usually heals on its own, but may take a week or two. Until you are feeling better, stick to a soft diet, things like yogurt, rice, pasta and the like. The medication I prescribed should be taken before meals and at bedtime and will help protect the esophagus while it heals. - Billing Disposition and Condition Condition: GOOD Disposition: Home - Attestation Statements Document Initiated by Mer: Yes Documenting Scribe: Lashaun Wolf Provider For Whom Mer is Documenting (Include Credential): Dr. Arjun Breen MD Scribe Attestation: Lashaun Gonzalez, scribed for Dr. Arjun Breen MD on 08/09/19 at 0021. Scribe Documentation Reviewed: Yes Provider Attestation: The documentation as recorded by the Lashaun mitchell accurately reflects the service I personally performed and the decisions made by me, Dr. Arjun Breen MD Status of Scribmaico Document: Viewed
[2019-08-08 20:19] VITALS: BP 130/67
== END 2019-08-08 20:15 | disposition home or self-care (01) ==
LOC: ED 18:54
DX: K20.9 Esophagitis, unspecified (principal); E11.9 Type 2 diabetes mellitus without complications; E78.00 Pure hypercholesterolemia, unspecified; I10 Essential (primary) hypertension; K21.9 Gastro-esophageal reflux disease without esophagitis; Z95.0 Presence of cardiac pacemaker; Z79.899 Other long term (current) drug therapy
CPT/HCPCS: 70360; 99282; A9270-GY

== ENCOUNTER 2019-09-07 13:06 | Emergency (ER) | payer MEDICARE, OTHER, BC ==
--- NOTE | 2019-09-07 14:03 | ED ---
Complex/Multi-Sys Presentation - HPI Summary HPI Summary: This patient is a 83 year old F presenting to [facility] accompanied by daughter with a chief complaint of weakness particularly in legs when walking since this morning 09/07/19. Symptoms aggravated by walking. Symptoms alleviated by nothing. Patient reports hip pain (chronic), slight cough but a lot of phlegm in throat for some time now. Denies fever, N/V/D, dysuria. Daughter reports hx afib (pacemaker put in in May), diabetes (takes januvia), anemia ( improved recently). Per daughter, she has a hx PTX after her pacemaker, kidney function worsened so doctors took her off Lisinopril and Metformin amongst others and pt went into rehabilitation in [place] where she started the januvia in beginning of June. Daughter states she has a hx of dehydration. - History Of Current Complaint Chief Complaint: EDWeakness Time Seen by Provider: 09/07/19 13:42 Hx Obtained From: Patient, Family/Forging Press Operator - female friend Onset/Duration: Lasting Hours, Still Present Timing: Constant Aggravating Factor(s): nothing Alleviating Factor(s): nothing Associated Signs And Symptoms: Positive: Cough, Other - hip pain, phlegm, dehydration. Negative: Nausea, Vomiting, Diarrhea, Dysuria, Fever - Allergies/Home Medications Allergies/Adverse Reactions: Allergies Allergy/AdvReac Type Severity Reaction Status Date / Time No Known Allergies Allergy Verified 09/07/19 13:22 Home Medications: Home Medications Amiodarone TAB* [Cordarone Tab*] 200 mg PO DAILY 09/07/19 [History Confirmed ] Ferrous Sulfate TAB* 325 mg PO DAILY 09/07/19 [History Confirmed 09/07/19] SitaGLIPtin (NF) [Januvia (NF)] 25 mg PO DAILY 09/07/19 [History Confirmed 09/07] PMH/Surg Hx/FS Hx/Imm Hx Endocrine/Hematology History: Reports: Hx Anticoagulant Therapy, Hx Diabetes Cardiovascular History: Reports: Hx Auto Implanted Cardiovert Defib, Hx Hypercholesterolemia, Hx Hypertension, Hx Pacemaker/ICD - 05/2019, Other Cardiovascular Problems/Disorders - DIABETIC, HIGH CHOLESTEROL, EDEMA (MEDS) Respiratory History: Denies: Hx Asthma, Hx Chronic Obstructive Pulmonary Disease (COPD) GI History: Reports: Hx Gastroesophageal Reflux Disease History: Reports: Hx Dialysis Denies: Hx Chronic Renal Failure Musculoskeletal History: Reports: Hx Arthritis Sensory History: Reports: Hx Hearing Problem - Hard of hearing Denies: Hx Contacts or Glasses, Hx Hearing Aid Opthamlomology History: Denies: Hx Contacts or Glasses Neurological History: Denies: Other Neuro Impairments/Disorders - strokes Psychiatric History: Denies: Hx Autism - Cancer History Hx Chemotherapy: No Hx Radiation Therapy: No - Surgical History Surgery Procedure, Year, and Place: Pace maker [facility], [facility] Hx Anesthesia Reactions: No Infectious Disease History: No Infectious Disease History: Denies: Traveled Outside the [place] in Last 30 Days - Family History Known Family History: Positive: Hypertension, Diabetes - Social History Alcohol Use: None Alcohol Amount: NONE Hx Substance Use: No Substance Use Type: Reports: None Hx Tobacco Use: No Smoking Status (MU): Never Smoked Tobacco Have You Smoked in the Last Year: No Review of Systems Positive: Other - weakness, dehydration. Negative: Fever Positive: Other - phlegm Positive: Cough Negative: Vomiting, Diarrhea, Nausea Negative: dysuria Positive: Other - hip pain All Other Systems Reviewed And Are Negative: Yes Physical Exam - Summary Physical Exam Summary: Constitutional: Well-developed, Well-nourished, Alert. (-) Distressed Skin: Warm, Dry HENT: Normocephalic; Atraumatic Eyes: Conjunctiva normal Neck: Musculoskeletal ROM normal neck. (-) JVD, (-) Stridor, (-) Nuchal rigidity Cardio: Rhythm regular,bradycardic; Intact distal pulses; Radial pulses are 2+ and symmetric. Systolic murmur Pulmonary/Chest wall: Effort normal. (-) Respiratory distress, (-) Wheezes, (-) Rales Abd: Soft, (-) tenderness, (-) Distension, (-) Guarding, (-) Rebound Musculoskeletal: (-) Edema Lymph: (-) Cervical adenopathy Neuro: Alert, Oriented x3 Psych: Mood and affect Normal Triage Information Reviewed: Yes Vital Signs On Initial Exam: Initial Vitals Temp Pulse Resp BP Pulse Ox 97.3 F 60 16 143/59 97 09/07/19 13:18 09/07/19 13:18 09/07/19 13:18 09/07/19 13:18 09/07/19 13:18 Vital Signs Reviewed: Yes Procedures - Sedation Patient Received Moderate/Deep Sedation with Procedure: No Diagnostics - Vital Signs Vital Signs Temp Pulse Resp BP Pulse Ox 09/07/19 13:18 97.3 F 60 16 143/59 97 - Laboratory Result Diagrams: 09/07/19 14:00 09/07/19 14:01 Lab Statement: Any lab studies that have been ordered have been reviewed, and results considered in the medical decision making process. - Radiology Chest X-Ray Radiology Interpretation Completed By: Radiologist Summary of Radiographic Findings: Per radiologist,. #. Pulmonary vascular congestion and mild alveolar and interstitial edema. ED physician has reviewed this imaging report. - EKG 1349 Cardiac Rate: NL - 60 BPM Summary of EKG Findings: EKG taken at 1349 reveals atrial paced at 60 BPM when compared to 05/31/2019 there is no significant change. Re-Evaluation - Re-Evaluation First Eval Re-Evaluation Time: 16:13 Comment: Pt was updated on lab work and pt will be giving a urine sample now. Second Eval Re-Evaluation Time: 16:40 Change: Improved - Patient resting, ambulated in ED, feels improved. Tolerating PO. Trop neg x2 Complex Multi-Symp Course/Dx Course Of Treatment: 83 y/o F w hx of HTN, pacemaker, DM who p/w fatigue. - VSS NAD. PE well appearing, easy WOB. EKG paced rhythm. CXR w/o e/o PNA. Trop 0.03 x2. UA without e/o infection. Ambulating here in ED. Labs w Cr elevated around baseline. Suspect 2/2 over exertion yesterday as she was out shopping. Daughter feels comfortable taking her home today - Diagnoses Provider Diagnoses: Fatigue Discharge ED - Sign-Out/Discharge Documenting (check all that apply): Patient Departure - discharge - Discharge Plan Condition: Stable Disposition: HOME Patient Education Materials: Fatigue (ED) Referrals: Jamel Seymour SQUARING MACHINE OPERATOR [Primary Care Provider] - 3 Days Additional Instructions: You were seen in the emergency department for fatigue. Your labs did not show any abnormalities that would cause your fatigue. If any studies were not completed at the time of discharge you will be called with the relevant results. Please follow up with your primary care doctor in next 2-3 days and return to emergency department for worsening fatigue, chest pain, trouble breathing or concerning symptoms. It was a pleasure taking care of you today. - Billing Disposition and Condition Condition: STABLE Disposition: Home - Attestation Statements Document Initiated by Mer: Yes Documenting Scribe: Lynne Arana Provider For Whom Mer is Documenting (Include Credential): Dr. Jamila Hunter MD Scribe Attestation: Lynne Gonzalez, scribed for Dr. Jamila Hunter MD on 09/07/19 at 1645. Scribe Documentation Reviewed: Yes Provider Attestation: The documentation as recorded by the Lynne mitchell accurately reflects the service I personally performed and the decisions made by me, Dr. Jamila Hunter MD Status of Scribe Document: Viewed
[2019-09-07 14:22] LABS: ABS Basophils 0.1 10^3/ul (0-0.2); ABS Lymphocytes 1.1 10^3/ul (1.0-4.8); ABS Monocytes 0.6 10^3/ul (0-0.8); ABS Neutrophils 3.4 10^3/ul (1.5-7.7); Eosinophil % 0.6 %; Hematocrit 32 % (35-47); Hemoglobin 10.4 g/dL (12.0-16.0); Lymphocyte % 20.5 %; Mean Corpuscular HGB Conc 33 g/dL (31-36); Mean Corpuscular Hemoglobin 29 pg (27-31); Mean Corpuscular Volume 89 fL (80-97); Mean Platelet Volume 8.9 fL (7.4-10.4); Nucleated Red Blood Cells % 0.1; Platelet Count 180 10^3/uL (150-450); Red Blood Count 3.57 10^6 /uL (3.70-4.87); Red Cell Distribution Width 17 % (10-15); White Blood Count 5.2 10^3/uL (3.5-10.8)
[2019-09-07 14:34] LABS: ALT 11 U/L (7-52); AST 24 U/L (13-39); Albumin 3.4 g/dL (3.2-5.2); Albumin/Globulin Ratio 0.8 (1-3); Alkaline Phosphatase 98 U/L (34-104); Anion Gap 7 mmol/L (2-11); BUN/Creatinine Ratio 20.7 (8-20); Blood Urea Nitrogen 35 mg/dL (6-24); CO2 Carbon Dioxide 21 mmol/L (22-32); Calcium 9.3 mg/dL (8.6-10.3); Chloride 109 mmol/L (101-111); EGFR African American 34.9 (>60); EGFR Non-African American 28.8 (>60); Globulin 4.2 g/dL (2-4); Glucose 246 mg/dL (70-100); Magnesium 1.9 mg/dL (1.9-2.7); Potassium 4.4 mmol/L (3.5-5.0); Sodium 137 mmol/L (135-145); Total Protein 7.6 g/dL (6.4-8.9)
[2019-09-07 14:39] LABS: Troponin I 0.03 ng/mL (<0.03)
[2019-09-07 16:12] LABS: Urine Appearance Clear; Urine Bilirubin Negative (Negative); Urine Blood Negative (Negative); Urine Color Yellow; Urine Glucose 1+(50 mg/dL) (Negative); Urine Ketones Negative (Negative); Urine Nitrite Negative (Negative); Urine Protein Negative (Negative); Urine Specific Gravity 1.009 (1.010-1.030); Urine Urobilinogen Negative (Negative)
[2019-09-07 16:31] LABS: Troponin I 0.03 ng/mL (<0.03)
[2019-09-07 17:21] VITALS: BP 146/74
== END 2019-09-07 17:20 | disposition home or self-care (01) ==
LOC: ED 13:06
DX: R53.83 Other fatigue (principal); I48.91 Unspecified atrial fibrillation; E11.9 Type 2 diabetes mellitus without complications; E78.00 Pure hypercholesterolemia, unspecified; I10 Essential (primary) hypertension; K21.9 Gastro-esophageal reflux disease without esophagitis; Z95.0 Presence of cardiac pacemaker; Z79.84 Long term (current) use of oral hypoglycemic drugs; Z79.899 Other long term (current) drug therapy
CPT/HCPCS: 36415; 71046; 80053; 81003; 83735; 84484; 85025; 93005; 99283

== ENCOUNTER 2019-09-30 20:09 | Inpatient (IN) | payer MEDICARE, OTHER, BC ==
--- NOTE | 2019-09-30 20:21 | ED ---
Dizziness - HPI Summary HPI Summary: Pt is an 83 y/o F presenting to the ED brought in by EMS for weakness. EMS states shes a type II diabetic and shes been waking up lethargic for the past few days with a blood glucose consistently in the high 200s. Pt herself reports weakness, difficulty walking, and decreased appetite. She denies pain, fever, headache, SOB, cough, rhinorrhea, abd pain, or urinary sx. Pts daughters state that her blood glucose has been in the 200s-300s all week, and shes had some recent medication changes with her Lasix d/t her kidney function. Tonight, she was much weaker than usual, and entirely unable to walk to her chair. They also state shes been complaining of some leg pain d/t worsening edema. - History Of Current Complaint Stated Complaint: WEAKNESS PER EMS Time Seen by Provider: 09/30/19 20:15 Hx Obtained From: Patient, EMS Onset/Duration: Still Present, Gradually Timing: Days Severity Initially: Moderate Severity Currently: Moderate Character: Weak Aggravating Factor(s): Nothing Alleviating Factor(s): Nothing Associated Signs And Symptoms: Negative: SOB, Fever - Allergies/Home Medications Allergies/Adverse Reactions: Allergies Allergy/AdvReac Type Severity Reaction Status Date / Time No Known Allergies Allergy Verified 09/30/19 20:31 Home Medications: Home Medications Furosemide TAB* [Lasix TAB*] 20 mg PO BID 09/30/19 [History Confirmed 09/30/19] Metoprolol Succinate XL TAB* [Toprol XL TAB*] 12.5 mg PO DAILY 09/30/19 [ History Confirmed 09/30/19] PMH/Surg Hx/FS Hx/Imm Hx Previously Healthy: Yes Endocrine/Hematology History: Reports: Hx Anticoagulant Therapy, Hx Diabetes Cardiovascular History: Reports: Hx Auto Implanted Cardiovert Defib, Hx Hypercholesterolemia, Hx Hypertension, Hx Pacemaker/ICD - 05/2019, Other Cardiovascular Problems/Disorders - DIABETIC, HIGH CHOLESTEROL, EDEMA (MEDS) Respiratory History: Denies: Hx Asthma, Hx Chronic Obstructive Pulmonary Disease (COPD) GI History: Reports: Hx Gastroesophageal Reflux Disease History: Reports: Hx Dialysis Denies: Hx Chronic Renal Failure Musculoskeletal History: Reports: Hx Arthritis Sensory History: Reports: Hx Hearing Problem - Hard of hearing Denies: Hx Contacts or Glasses, Hx Hearing Aid Opthamlomology History: Denies: Hx Contacts or Glasses Neurological History: Denies: Other Neuro Impairments/Disorders - strokes Psychiatric History: Denies: Hx Autism - Cancer History Hx Chemotherapy: No Hx Radiation Therapy: No - Surgical History Surgery Procedure, Year, and Place: Pace maker 2019, [facility] [place] Hx Anesthesia Reactions: No - Family History Known Family History: Positive: Hypertension, Diabetes - Social History Alcohol Use: None Alcohol Amount: NONE Hx Substance Use: No Substance Use Type: Reports: None Hx Tobacco Use: No Smoking Status (MU): Never Smoked Tobacco Have You Smoked in the Last Year: No Review of Systems Positive: Other - decreased appetite, difficulty walking. Negative: Fever Negative: Nasal Discharge Negative: Shortness Of Breath, Cough Negative: Abdominal Pain Positive: no symptoms reported Positive: Myalgia - legs, Edema Positive: Weakness. Negative: Headache All Other Systems Reviewed And Are Negative: Yes Physical Exam - Summary Physical Exam Summary: Appearance: Elderly non-toxic appearing woman lying on the stretcher in no acute distress, appears fatigued. Skin: Warm, dry, no obvious rash Eyes: sclera anicteric, no conjunctival pallor ENT: mucous membranes moist, pharynx appears normal Neck: Supple, nontender Respiratory: Clear to auscultation, no signs of respiratory distress Cardiovascular: Normal S1, S2. No murmurs. Normal distal pulses in tibial and radial bilaterally. Abdomen: Soft, nontender, normal active bowel sounds present Musculoskeletal: Pitting edema in the bilateral LE, Strength/ROM Intact Neurological: A&Ox3, awake and alert, mentation is normal, speech is fluent and appropriate Psychiatric: affect is normal, does not appear anxious or depressed Triage Information Reviewed: Yes Vital Signs Reviewed: Yes - Josey Coma Scale Best Eye Response: 4 - Spontaneous Best Motor Response: 6 - Obeys Commands Best Verbal Response: 5 - Oriented Coma Scale Total: 15 Procedures - Sedation Patient Received Moderate/Deep Sedation with Procedure: No Diagnostics - Laboratory Result Diagrams: 10/01/19 05:12 10/01/19 11:21 Lab Statement: Any lab studies that have been ordered have been reviewed, and results considered in the medical decision making process. - Radiology CXR Radiology Interpretation Completed By: ED Physician Summary of Radiographic Findings: No acute process, pending official radiology report. - CT Brain CT CT Interpretation Completed By: Radiologist Summary of CT Findings: No acute intracranial findings. ED physician has reviewed this report. - EKG 2106 Cardiac Rate: Other Rate EKG Rhythm: Sinus Rhythm - AV paced Summary of EKG Findings: EKG at 2106 shows atrial-ventricular dual-paced rhythm at 60bpm. This is a normal EKG. ED physician has reviewed and interpreted this EKG. Dizzy Course/Dx - Course Course Of Treatment: Pt is an 83 y/o F presenting to the ED brought in by EMS for weakness. EMS states shes a type II diabetic and shes been waking up lethargic for the past few days with a blood glucose consistently in the high 200s. Pt herself reports weakness, difficulty walking, and decreased appetite. She denies pain, fever, headache, SOB, cough, rhinorrhea, or abd pain. Pt is an 83 y/o F presenting to the ED brought in by EMS for weakness. EMS states she s a type II diabetic and shes been waking up lethargic for the past few days with a blood glucose consistently in the high 200s. Pt herself reports weakness , difficulty walking, and decreased appetite. She denies pain, fever, headache, SOB, cough, rhinorrhea, abd pain, or urinary sx. Pt's daughters state that tonight, she was much weaker than usual, and entirely unable to walk to her chair. They also state shes been complaining of some leg pain d/t worsening edema. EKG at 2106 shows atrial-ventricular dual-paced rhythm at 60bpm. This is a normal EKG. ED physician has reviewed and interpreted this EKG. CXR shows : No acute process, pending official radiology report. Brain CT shows no acute intracranial findings. I started 40mg Lasix while pt in the ED. I spoke with Dr. Escobedo about the pt's present condition at 2330, who will come to evaluate pt in ED. Dx includes weakness and peripheral edema. - Diagnoses Provider Diagnoses: Weakness, Peripheral edema - Provider Notifications Discussed Care Of Patient With: Riya Escobedo Time Discussed With Above Provider: 23:30 Instructed by Provider To: Admit As Inpatient Discharge ED - Sign-Out/Discharge Documenting (check all that apply): Patient Departure - Discharge Plan Condition: Stable Disposition: ADMITTED TO [facility] - Billing Disposition and Condition Condition: STABLE Disposition: Admitted to [facility] - Attestation Statements Document Initiated by Scribe: Yes Documenting Scribe: Silva Peres Provider For Whom Scribe is Documenting (Include Credential): Arjun Breen MD. Scribe Attestation: ISilva, beared for Arjun Breen MD. on 10/05/19 at 0141. Scribe Documentation Reviewed: Yes Provider Attestation: The documentation as recorded by the scribe, Silva Peres accurately reflects the service I personally performed and the decisions made by me, Arjun Breen MD. Status of Scribe Document: Viewed
[2019-09-30 21:18] LABS: Troponin I 0.02 ng/mL (<0.03)
[2019-09-30 21:20] LABS: Albumin 3.2 g/dL (3.2-5.2); Albumin/Globulin Ratio 0.7 (1-3); BUN/Creatinine Ratio 29.5 (8-20); Calcium 9.2 mg/dL (8.6-10.3); EGFR African American 40.3 (>60); EGFR Non-African American 33.3 (>60); Globulin 4.5 g/dL (2-4); Magnesium 1.9 mg/dL (1.9-2.7); Potassium 4.8 mmol/L (3.5-5.0); Total Bilirubin 2.1 mg/dL (0.2-1.0); Total Protein 7.7 g/dL (6.4-8.9)
[2019-09-30 21:37] LABS: TSH (Thyroid Stimulating Horm) 1.36 mcIU/mL (0.34-5.60)
[2019-09-30 21:44] LABS: Urine Appearance Clear; Urine Bilirubin Negative (Negative); Urine Blood 1+ (Negative); Urine Color Yellow; Urine Glucose 1+(50 mg/dL) (Negative); Urine Ketones Negative (Negative); Urine Nitrite Negative (Negative); Urine Protein Negative (Negative); Urine Specific Gravity 1.016 (1.010-1.030); Urine Urobilinogen Negative (Negative)
[2019-09-30 21:51] LABS: Urine Bacteria Absent (Absent); Urine Red Blood Cell 1+(3-5/hpf) (Absent); Urine Squamous Epithelial Cell Present (Absent); Urine White Blood Cell Trace(0-5/hpf) (Absent)
[2019-09-30 21:51] LABS: ABS Basophils 0.1 10^3/ul (0-0.2); ABS Eosinophils 0.1 10^3/ul (0-0.6); ABS Lymphocytes 0.9 10^3/ul (1.0-4.8); ABS Monocytes 0.7 10^3/ul (0-0.8); ABS Neutrophils 4.2 10^3/ul (1.5-7.7); Eosinophil % 1.9 %; Hematocrit 34 % (35-47); Hemoglobin 11.1 g/dL (12.0-16.0); Lymphocyte % 14.4 %; Mean Corpuscular HGB Conc 32 g/dL (31-36); Mean Corpuscular Hemoglobin 30 pg (27-31); Mean Corpuscular Volume 91 fL (80-97); Mean Platelet Volume 10.3 fL (7.4-10.4); Nucleated Red Blood Cells % 0.2; Platelet Count 206 10^3/uL (150-450); Red Blood Count 3.75 10^6 /uL (3.70-4.87); Red Cell Distribution Width 18 % (10-15); White Blood Count 5.9 10^3/uL (3.5-10.8)
[2019-09-30] MEDS ORDERED: Furosemide IV* 10 MG/ML VIAL (40 MG) IV SLOW PU ONE (23:30)
[2019-10-01] MEDS ORDERED: Ondansetron INJ* 2 MG/ML VIAL IV PRN (00:09)
[2019-10-01] MEDS ORDERED: Dextrose 50% VIAL 50 ml IV PUSH PRN (00:09)
[2019-10-01 00:51] LABS: Influenza A Molecular NEGATIVE (Negative); Influenza B Molecular NEGATIVE (Negative)
--- NOTE | 2019-10-01 01:45 | HP ---
CC: Jamel Seymour NP HISTORY AND PHYSICAL: DATE OF ADMISSION: 10/01/19 PRIMARY CARE PROVIDER: Jamel Seymour NP CHIEF COMPLAINT: Brought in by the family because of lethargy. HISTORY OF PRESENT ILLNESS: This is an 83-year-old female with past medical history of diabetes, sick sinus syndrome, atrial fibrillation, who is now in the emergency room because of increasing lethargy. There are 2 daughters at the bedside, specifically Nola, the daughter, who lives with the patient. She reports that the patient has been having increasing lethargy, sleeping more than usual with no other specific complaints. The patient has not been having any fever, no recent cough or sick contacts, has not been having any urinary symptoms or any nausea or vomiting as far as the daughter knows. The daughter notes that patient used to be on metformin, which was eventually changed to Januvia and since then patient has been having increased blood sugar for the past several weeks. She was seen by her primary care provider, who recommended that the patient start Toujeo that was prescribed to her today. Additionally, the patient has also been having lower extremity edema. Review of systems cannot be obtained as the patient cannot give further history. PAST MEDICAL HISTORY: Includes: 1. Sick sinus syndrome, status post dual chamber permanent pacemaker placement. 2. Diabetes. 3. Hypertension. 4. Hyperlipidemia. 5. Arthritis. 6. GERD. 7. Atrial flutter. 8. Atrial fibrillation. PAST SURGICAL HISTORY: Includes dual chamber permanent pacemaker placement. MEDICATIONS: Home medications include: 1. Magnesium tablet 800 mg daily. 2. Lipitor 10 mg at bedtime. 3. Omeprazole 20 mg daily. 4. Metoprolol succinate 12.5 mg daily. 5. Vitamin B12 2000 mcg daily. 6. Januvia 25 mg daily. 7. Ascorbic acid 500 mg in the morning. 8. Eliquis 2.5 mg b.i.d. 9. Amiodarone 200 mg daily. 10. Lasix 20 mg b.i.d. 11. Ferrous sulfate 325 mg daily. ALLERGIES: No known drug allergies. FAMILY HISTORY: Father: at age of 60 due to a myocardial infarction. Mother: at age 72. SOCIAL HISTORY: The patient lives at home with her daughter, uses a walker to ambulate. Does not smoke. No alcohol use. REVIEW OF SYSTEMS: Unobtainable as the patient is having altered mental status. PHYSICAL EXAMINATION GENERAL: This is an elderly female, lying in bed, lethargic. She is asleep, hard to arouse. When arousable, she is quick to fall back asleep. VITAL SIGNS: Blood pressure 148/58, oxygen saturation 98% on room air, respiratory rate of 16, heart rate of 60, temperature of 97.7 Fahrenheit. HEENT: Pupils are equal, round, reactive to light, atraumatic, normocephalic. Oral mucosa is slightly dry. There is no nystagmus. NECK: Supple. There is no thyromegaly. LUNGS: Diminished air entry at the lower lung bases without any wheezing, rales , or rhonchi. HEART: There is no chest wall tenderness, regular rhythm, no murmurs. ABDOMEN: Normoactive bowel sounds, abdomen is soft, nontender and nondistended. EXTREMITIES: There is 2+ pitting edema at the bilateral lower extremities. It should be noted that her right leg is far greater in size than her left lower extremity. NEUROLOGIC: The patient is very hard to arouse. When arousable, quick to fall asleep. She did answer few questions for me and her speech at that time was clear and coherent. She cannot tell me her name, however, she only answers in yes and no questions. DIAGNOSTIC STUDIES/LAB DATA: In the emergency room, the patient was seen and evaluated. Blood work was done. Imaging were obtained. They attempted to ambulate the patient with a walker. The patient was able to stand at bedside with 2 assist, however, was not able to ambulate. Blood work: WBC of 5.9, hemoglobin of 11.1, hematocrit of 34, MCV of 91, RDW of 18, neutrophils of 70.4%. Sodium of 139, potassium of 4.8, chloride of 108, bicarbonate 21, BUN of 44, creatinine of 1.49, lactic acid of 1.9, magnesium of 1.9, calcium of 9.2. Total bilirubin of 2.10, AST of 40, ALT of 21, alkaline phosphatase of 201. Troponin of 0.02. Albumin of 3.2. TSH of 1.36. Urinalysis shows pH of 5.0, specific gravity of 1.016. Urine with 1+ blood, negative for nitrite, negative for leuko esterases. Urine is positive for 1+ rbc, squamous cells were present, trace wbc's. The patient underwent an EKG, which revealed paced rhythm with QTc of 528. Heart rate of 60. Chest x-ray was done, which revealed as interpreted by me, no acute pathology, official read is pending. However, there is cardiomegaly. Brain CT was done, which appeared to have no acute intracranial pathology. IMPRESSION AND PLAN: 1. Altered mental status-encephalopathy. At this point, we are unsure as to what this could be. We will try to rule out Influenza as well as occult infection with blood cultures as well. Chest x-ray did not show any pneumonia. Urinalysis is negative. 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 2. Diabetes with hyperglycemia: At this time, we will hold the Januvia, start the patient on insulin sliding scale, and obtain a hemoglobin A1c. 3. Elevated liver function tests: We will get a right upper quadrant ultrasound to rule out any choledocholithiasis versus cholangitis. 4. QTc prolongation: We will avoid adding any medication that could increase it. The patient is on amiodarone, which will be continued. 5. Lower extremity edema: The patient was ordered for Lasix in the emergency room, 40 mg IV push. At this point, I will continue the patient on 20 mg b.i.d. of Lasix that she takes at home. We will get an ultrasound of the lower extremities to rule out deep venous thrombosis. 6. History of atrial fibrillation: She is currently in paced rhythm. Continue amiodarone, Eliquis b.i.d. for anticoagulation. 7. Code status: The patient reports daughter is at bedside. Daughter, Nola phone number is [phone], other phone number is [phone]. She reports that the patient would not want anything done, however, states that she has a MOLST form at home, which she will bring in for us. 8. History of arthritis. 9. History of hyperlipidemia: Continue Lipitor. 10. History of hypertension: Currently, blood pressure is controlled. She takes metoprolol at home. This will be continued. 11. History of gastroesophageal reflux disease. Continue on omeprazole daily. 12. Prognosis guarded- due to unexplained encephalopathy/altered mental status. [id number]/[facility] #: [id number] [facility] CENTERCrystal
[2019-10-01] MEDS ORDERED: Insulin LISPRO* 1 UNITS UNIT SUBCUT ONE (04:00)
[2019-10-01 04:35] LABS: Urine Appearance Clear; Urine Bilirubin Negative (Negative); Urine Blood 2+ (Negative); Urine Color Yellow; Urine Glucose Negative (Negative); Urine Ketones Negative (Negative); Urine Nitrite Negative (Negative); Urine Protein Negative (Negative); Urine Specific Gravity 1.008 (1.010-1.030); Urine Urobilinogen Negative (Negative)
[2019-10-01 04:37] LABS: Urine Bacteria Absent (Absent); Urine Red Blood Cell 3+(>10/hpf) (Absent); Urine White Blood Cell Trace(0-5/hpf) (Absent)
[2019-10-01 05:32] LABS: ABS Eosinophils 0.1 10^3/ul (0-0.6); ABS Lymphocytes 0.6 10^3/ul (1.0-4.8); ABS Monocytes 0.7 10^3/ul (0-0.8); ABS Neutrophils 4.3 10^3/ul (1.5-7.7); Eosinophil % 1.2 %; Hematocrit 32 % (35-47); Hemoglobin 10.6 g/dL (12.0-16.0); Mean Corpuscular HGB Conc 34 g/dL (31-36); Mean Corpuscular Hemoglobin 30 pg (27-31); Mean Corpuscular Volume 90 fL (80-97); Mean Platelet Volume 9.8 fL (7.4-10.4); Nucleated Red Blood Cells % 0.1; Platelet Count 190 10^3/uL (150-450); Red Blood Count 3.52 10^6 /uL (3.70-4.87); Red Cell Distribution Width 17 % (10-15); White Blood Count 5.6 10^3/uL (3.5-10.8)
[2019-10-01 05:47] LABS: BUN/Creatinine Ratio 31.9 (8-20); Calcium 9.1 mg/dL (8.6-10.3); EGFR Non-African American 34.7 (>60); Potassium 4.1 mmol/L (3.5-5.0)
[2019-10-01] MEDS: Insulin LISPRO* 1 UNITS UNIT SUBCUT SCH ×2 (08:54→13:18)
[2019-10-01] MEDS ORDERED: Amiodarone TAB* 200 MG PO SCH (09:00)
[2019-10-01] MEDS ORDERED: Apixaban* 2.5 MG TAB PO SCH (09:00)
[2019-10-01] MEDS ORDERED: Pantoprazole TAB * 40 MG TAB PO SCH (09:00)
[2019-10-01] MEDS ORDERED: Metoprolol Succinate XL TAB* 25 MG PO SCH (09:00)
[2019-10-01] MEDS ORDERED: Cyanocobalamin TAB* 500 MCG PO SCH (09:00)
[2019-10-01] MEDS ORDERED: Magnesium Oxide TAB* 400 MG PO SCH (09:00)
[2019-10-01] MEDS ORDERED: Ferrous Sulfate TAB* 325 MG PO SCH (09:00)
[2019-10-01] MEDS ORDERED: Furosemide TAB* 20 MG PO SCH (09:00)
[2019-10-01] MEDS ORDERED: Ascorbic Acid TAB* 500 MG PO SCH (09:00)
[2019-10-01] MEDS: LORazepam INJ* 2 MG/ML 1 ML VIAL ONE ×2 (09:41→09:43)
[2019-10-01] MEDS ORDERED: levETIRAcetam 1000MG IVPREMIX* 1,000 MG/100 ML BAG IVPB ONE (09:41)
--- NOTE | 2019-10-01 10:07 | PN ---
Subjective Date of Service: 10/01/19 Interval History: Seen this am urgently. Pt noted to have frontal discharges on EEG.Admitted this am for lethargy,AMS.Noted to be seizing. Appreciate Dr Yip's help who is already with patient. Objective Active Medications: Amiodarone HCl (Cordarone Tab*) 200 mg PO DAILY [facility] Apixaban (Eliquis*) 2.5 mg PO BID [facility] Ascorbic Acid (Vitamin C Tab*) 500 mg PO QAM [facility] Atorvastatin Calcium (Lipitor*) 10 mg PO BEDTIME [facility] Cyanocobalamin (Vitamin B12 Tab*) 2,000 mcg PO DAILY [facility] Dextrose (Dextrose 50% Vial 50 Ml*) 25 ml IV PUSH .FOR FS < 60 - SS PRN PRN Reason: FS < 60 Ferrous Sulfate (Ferrous Sulfate Tab*) 325 mg PO DAILY [facility] Furosemide (Lasix Tab*) 20 mg PO BID [facility] Insulin Human Lispro (Humalog*) 0 units SUBCUT ACHS [facility]; Protocol Last Admin: 10/01/19 08:54 Dose: 6 units Magnesium Oxide (Magox 400 Tab*) 800 mg PO DAILY [facility] Metoprolol Succinate (Toprol Xl Tab*) 12.5 mg PO DAILY [facility] Pantoprazole Sodium (Protonix Tab*) 40 mg PO DAILY [facility] Vital Signs - 8 hr 10/01/19 10/01/19 10/01/19 02:10 09:41 09:43 Temperature 98 F Pulse Rate 60 Respiratory 19 20 20 Rate Blood Pressure 145/63 (mmHg) O2 Sat by Pulse 99 Oximetry Oxygen Devices in Use Now: None Eyes: No Scleral Icterus Respiratory: Symmetrical Chest Expansion and Respiratory Effort, Clear to Auscultation Cardiovascular: RRR Abdominal: NL Sounds; No Tenderness; No Distention Extremities: No Edema Neurological: - - active seizure, leythargic, recd ativan Result Diagrams: 10/01/19 05:12 10/01/19 05:12 Microbiology and Other Data: Microbiology 10/01/19 04:10 Stool Occult Blood (NELSY) - Final Stool Assess/Plan/Problems-Billing Assessment: - Patient Problems (1) Seizure Current Visit: Yes Status: Acute Code(s): R56.9 - UNSPECIFIED CONVULSIONS SNOMED Code(s): 76389470 Comment: Active seizures Frontal discharges on EEG Recd Ativan 1 mg, may need 1 more mg Keppra 1g load per d/w Dr Yip Appreciate Neuro input CT brain ok MRI will switch to STAT NH3,CMP,TSH,ESR,CPK ordered Transfer to ICU Signed out to ICU attending, Dr Ren Has pacer, likely MRI compatible.Fam has pacer info (2) Diabetes Current Visit: Yes Status: Acute Code(s): E11.9 - TYPE 2 DIABETES MELLITUS WITHOUT COMPLICATIONS SNOMED Code(s): 50050740 Comment: ISS (3) A-fib Current Visit: Yes Status: Acute Code(s): I48.91 - UNSPECIFIED ATRIAL FIBRILLATION SNOMED Code(s): 02369021 Comment: Continue metoprolol, Eliquis (4) Altered mental status Current Visit: Yes Status: Acute Code(s): R41.82 - ALTERED MENTAL STATUS, UNSPECIFIED SNOMED Code(s): 841151431 Comment: Sec Seizure w/u as above Status and Disposition: Transfer to ICU.Further plan per Neuro and ICU team
--- NOTE | 2019-10-01 10:43 | CONSULT ---
Consult Consult: Consultation Note -- Critical Care Requesting Physician: Dr Riya Escobedo Reason for consult: seizures Limitations in history/physical: change in mental status, histoyr from chart/ staff Date of consult: 10/01/2019 HPI: 83y F w/pmhx of HTN, DM, Sick Sinus Syndrome s/p PPM 05/2019, Atrial fibrillation, HLD, CHF, GERD, CKD3 (baseline 1-1.4); she presents to ER 09/30 for lethargy x1 day. Daughter states she had weakness around deangelo allison 2018 , but awake, ER visit done but no findings noted. She was discharged home. Since then no fever/chills/cough. no abd pain/diarrhea. no chest pain/sob. no sick contacts. PO intake less. She comes yesterday for acute lethargy. Overnight worsened. CT brain without acute focal findings. EEG done by neuro and noted frontal discharges, suspected non-convulsive status, given ativan 2mg IV. She is sleeping, some response with painful stimuli only, but no resp distress, BP and HR stable. Being given keppra load. ROS: ROS unable to be obtained secondary to change in mental status PMHx: HTN, DM, Sick Sinus Syndrome s/p PPM 05/2019, Atrial fibrillation, HLD, CHF , GERD, CKD3 (baseline 1-1.4) PSHx: PPM 05/2019 Family History: father had CAD, 80s, mother 70s Social History: Alcohol-none, Smoking-none, Drug use-none; lives at home with Allergies: NKDA Home Medications: Atorvastatin* [Lipitor 10 MG*] 10 mg PO BEDTIME 04/27/18 [History Confirmed ] Cyanocobalamin (Vitamin B-12) [Vitamin B-12] 2,000 mcg PO DAILY 04/27/18 [ History Confirmed 09/30/19] Apixaban* [Eliquis*] 2.5 mg PO BID 05/08/18 [History Confirmed 09/30/19] Magnesium Oxide TAB* [MagOx 400 TAB*] 800 mg PO DAILY 02/12/19 [History Confirmed 09/30/19] Omeprazole CAP (NF) [Prilosec CAP* 20 MG] 20 mg PO DAILY 03/23/19 [History Confirmed 09/30/19] Ascorbic Acid TAB* [Vitamin C TAB*] 500 mg PO QAM 05/25/19 [History Confirmed 09/30/19] Amiodarone TAB* [Cordarone Tab*] 200 mg PO DAILY 09/07/19 [History Confirmed ] Ferrous Sulfate TAB* 325 mg PO DAILY 09/07/19 [History Confirmed 09/30/19] SitaGLIPtin (NF) [Januvia (NF)] 25 mg PO DAILY 09/07/19 [History Confirmed 09/30] Furosemide TAB* [Lasix TAB*] 20 mg PO BID 09/30/19 [History Confirmed 09/30/19] Metoprolol Succinate XL TAB* [Toprol XL TAB*] 12.5 mg PO DAILY 09/30/19 [ History Confirmed 09/30/19] Tele: Atrial paced Vitals: Vital Signs Temp 96.5 F 10/01/19 10:27 Pulse 60 10/01/19 10:27 Resp 19 10/01/19 10:27 BP 121/62 10/01/19 10:27 Pulse Ox 98 10/01/19 10:27 Intake & Output 09/30/19 10/01/19 10/01/19 18:59 06:59 18:59 Intake Total 0 Output Total 650 Balance -650 Weight 79.197 kg Intake: Oral 0 Output: Alonzo 650 Other: # Bowel Movements 1 Estimated Stool Amount Small O2/Vent: NC Infusions: heplock Current Medications: Amiodarone HCl (Cordarone Tab*) 200 mg PO DAILY [facility] Apixaban (Eliquis*) 2.5 mg PO BID [facility] Ascorbic Acid (Vitamin C Tab*) 500 mg PO QAM [facility] Atorvastatin Calcium (Lipitor*) 10 mg PO BEDTIME [facility] Cyanocobalamin (Vitamin B12 Tab*) 2,000 mcg PO DAILY [facility] Dextrose (Dextrose 50% Vial 50 Ml*) 25 ml IV PUSH .FOR FS < 60 - SS PRN PRN Reason: FS < 60 Ferrous Sulfate (Ferrous Sulfate Tab*) 325 mg PO DAILY [facility] Furosemide (Lasix Tab*) 20 mg PO BID [facility] Insulin Human Lispro (Humalog*) 0 units SUBCUT ACHS [facility]; Protocol Last Admin: 10/01/19 08:54 Dose: 6 units Magnesium Oxide (Magox 400 Tab*) 800 mg PO DAILY [facility] Metoprolol Succinate (Toprol Xl Tab*) 12.5 mg PO DAILY [facility] Pantoprazole Sodium (Protonix Tab*) 40 mg PO DAILY [facility] Physical Exam: Constitutional: lethargic, not responsive, not opening eyes, no distress, no diaphoresis Head: normocephalic, atraumatic Eyes: no pallor, no icterus ENT: moist mucous membranes Neck: soft, supple, no jvd, no stridor CVS: normal rate, regular, no murmur Chest/Resp: bilateral air entry, no rhales, no wheeze, no rhonchi, no acc muscle use Abdomen/GI: soft, nontender, nondistended, BS+ Ext/Msk: warm, pulses+, no edema Skin: intact, warm Neuro: not awakening to painful stimuli, withdrawal+, pupils reactive+, limited exam due to change in mental status Psych: limited due to change in mental status Labs: Laboratory Results - last 24 hr 09/30/19 09/30/19 09/30/19 20:22 20:46 20:46 WBC 5.9 RBC 3.75 Hgb 11.1 L Hct 34 L MCV 91 MCH 30 MCHC 32 RDW 18 H Plt Count 206 MPV 10.3 Neut % (Auto) 70.4 Lymph % (Auto) 14.4 [place] % (Auto) 12.4 Eos % (Auto) 1.9 Baso % (Auto) 0.9 Absolute Neuts (auto) 4.2 Absolute Lymphs (auto) 0.9 L Absolute Monos (auto) 0.7 Absolute Eos (auto) 0.1 Absolute Basos (auto) 0.1 Absolute Nucleated RBC 0.0 Nucleated RBC % 0.2 ABG pH ABG pCO2 ABG pO2 ABG HCO3 ABG O2 Saturation ABG Base Excess Sodium 139 Potassium 4.8 Chloride 108 Carbon Dioxide 21 L Anion Gap 10 BUN 44 H Creatinine 1.49 H Est GFR ( Amer) 40.3 Est GFR (Non-Af Amer) 33.3 BUN/Creatinine Ratio 29.5 H Glucose 260 H POC Glucose (mg/dL) Hemoglobin A1c Lactic Acid Calcium 9.2 Magnesium 1.9 Total Bilirubin 2.10 H AST 40 H ALT 21 Alkaline Phosphatase 201 H Ammonia Total Creatine Kinase Troponin I 0.02 Total Protein 7.7 Albumin 3.2 Globulin 4.5 H Albumin/Globulin Ratio 0.7 L TSH 1.36 Urine Color Yellow Urine Appearance Clear Urine pH 5.0 Ur Specific [place] 1.016 Urine Protein Negative Urine Ketones Negative Urine Blood 1+ A Urine Nitrate Negative Urine Bilirubin Negative Urine Urobilinogen Negative Ur Leukocyte Esterase Negative Urine WBC (Auto) Trace(0-5/hpf) Urine RBC (Auto) 1+(3-5/hpf) A Ur Squamous Epith Cells Present A Urine Bacteria Absent Urine Glucose 1+(50 mg/dl) A Urine Ascorbic Acid * A Influenza A (Rapid) Influenza B (Rapid) 09/30/19 10/01/19 10/01/19 20:46 00:20 03:00 WBC RBC Hgb Hct MCV MCH MCHC RDW Plt Count MPV Neut % (Auto) Lymph % (Auto) [place] % (Auto) Eos % (Auto) Baso % (Auto) Absolute Neuts (auto) Absolute Lymphs (auto) Absolute Monos (auto) Absolute Eos (auto) Absolute Basos (auto) Absolute Nucleated RBC Nucleated RBC % ABG pH 7.54 H ABG pCO2 23 L ABG pO2 88 ABG HCO3 24.1 ABG O2 Saturation 98.6 H ABG Base Excess -1.1 Sodium Potassium Chloride Carbon Dioxide Anion Gap BUN Creatinine Est GFR ( Amer) Est GFR (Non-Af Amer) BUN/Creatinine Ratio Glucose POC Glucose (mg/dL) Hemoglobin A1c Lactic Acid 1.9 Calcium Magnesium Total Bilirubin AST ALT Alkaline Phosphatase Ammonia Total Creatine Kinase Troponin I Total Protein Albumin Globulin Albumin/Globulin Ratio TSH Urine Color Urine Appearance Urine pH Ur Specific [place] Urine Protein Urine Ketones Urine Blood Urine Nitrate Urine Bilirubin Urine Urobilinogen Ur Leukocyte Esterase Urine WBC (Auto) Urine RBC (Auto) Ur Squamous Epith Cells Urine Bacteria Urine Glucose Urine Ascorbic Acid Influenza A (Rapid) Negative Influenza B (Rapid) Negative 10/01/19 10/01/19 10/01/19 03:26 04:20 05:12 WBC RBC Hgb Hct MCV MCH MCHC RDW Plt Count MPV Neut % (Auto) Lymph % (Auto) [place] % (Auto) Eos % (Auto) Baso % (Auto) Absolute Neuts (auto) Absolute Lymphs (auto) Absolute Monos (auto) Absolute Eos (auto) Absolute Basos (auto) Absolute Nucleated RBC Nucleated RBC % ABG pH ABG pCO2 ABG pO2 ABG HCO3 ABG O2 Saturation ABG Base Excess Sodium Potassium Chloride Carbon Dioxide Anion Gap BUN Creatinine Est GFR ( Amer) Est GFR (Non-Af Amer) BUN/Creatinine Ratio Glucose POC Glucose (mg/dL) 216 H Hemoglobin A1c 7.7 H Lactic Acid Calcium Magnesium Total Bilirubin AST ALT Alkaline Phosphatase Ammonia Total Creatine Kinase Troponin I Total Protein Albumin Globulin Albumin/Globulin Ratio TSH Urine Color Yellow Urine Appearance Clear Urine pH 5.0 Ur Specific [place] 1.008 L Urine Protein Negative Urine Ketones Negative Urine Blood 2+ A Urine Nitrate Negative Urine Bilirubin Negative Urine Urobilinogen Negative Ur Leukocyte Esterase Negative Urine WBC (Auto) Trace(0-5/hpf) Urine RBC (Auto) 3+(>10/hpf) A Ur Squamous Epith Cells Urine Bacteria Absent Urine Glucose Negative Urine Ascorbic Acid * A Influenza A (Rapid) Influenza B (Rapid) 10/01/19 10/01/19 10/01/19 05:12 05:12 07:39 WBC 5.6 RBC 3.52 L Hgb 10.6 L Hct 32 L MCV 90 MCH 30 MCHC 34 RDW 17 H Plt Count 190 MPV 9.8 Neut % (Auto) 76.3 Lymph % (Auto) 10.0 [place] % (Auto) 11.8 Eos % (Auto) 1.2 Baso % (Auto) 0.7 Absolute Neuts (auto) 4.3 Absolute Lymphs (auto) 0.6 L Absolute Monos (auto) 0.7 Absolute Eos (auto) 0.1 Absolute Basos (auto) 0.0 Absolute Nucleated RBC 0.0 Nucleated RBC % 0.1 ABG pH ABG pCO2 ABG pO2 ABG HCO3 ABG O2 Saturation ABG Base Excess Sodium 141 Potassium 4.1 Chloride 110 Carbon Dioxide 20 L Anion Gap 11 BUN 46 H Creatinine 1.44 H Est GFR ( Amer) 42.0 Est GFR (Non-Af Amer) 34.7 BUN/Creatinine Ratio 31.9 H Glucose 232 H POC Glucose (mg/dL) 249 H Hemoglobin A1c Lactic Acid Calcium 9.1 Magnesium Total Bilirubin AST ALT Alkaline Phosphatase Ammonia Total Creatine Kinase Troponin I Total Protein Albumin Globulin Albumin/Globulin Ratio TSH Urine Color Urine Appearance Urine pH Ur Specific [place] Urine Protein Urine Ketones Urine Blood Urine Nitrate Urine Bilirubin Urine Urobilinogen Ur Leukocyte Esterase Urine WBC (Auto) Urine RBC (Auto) Ur Squamous Epith Cells Urine Bacteria Urine Glucose Urine Ascorbic Acid Influenza A (Rapid) Influenza B (Rapid) 01/17/20 01/17/20 10:22 10:22 WBC RBC Hgb Hct MCV MCH MCHC RDW Plt Count MPV Neut % (Auto) Lymph % (Auto) [place] % (Auto) Eos % (Auto) Baso % (Auto) Absolute Neuts (auto) Absolute Lymphs (auto) Absolute Monos (auto) Absolute Eos (auto) Absolute Basos (auto) Absolute Nucleated RBC Nucleated RBC % ABG pH ABG pCO2 ABG pO2 ABG HCO3 ABG O2 Saturation ABG Base Excess Sodium 140 Potassium Chloride 111 Carbon Dioxide 19 L Anion Gap BUN 46 H Creatinine 1.40 H Est GFR ( Amer) 43.3 Est GFR (Non-Af Amer) 35.8 BUN/Creatinine Ratio 32.9 H Glucose 160 H POC Glucose (mg/dL) Hemoglobin A1c Lactic Acid Calcium 9.2 Magnesium Total Bilirubin 1.90 H AST ALT 17 Alkaline Phosphatase 181 H Ammonia TNP Total Creatine Kinase 40 Troponin I Total Protein 7.0 Albumin 3.1 L Globulin 3.9 Albumin/Globulin Ratio 0.8 L TSH Urine Color Urine Appearance Urine pH Ur Specific [place] Urine Protein Urine Ketones Urine Blood Urine Nitrate Urine Bilirubin Urine Urobilinogen Ur Leukocyte Esterase Urine WBC (Auto) Urine RBC (Auto) Ur Squamous Epith Cells Urine Bacteria Urine Glucose Urine Ascorbic Acid Influenza A (Rapid) Influenza B (Rapid) Imaging: CT brain 09/30 - no acute findings CXR 09/30 - no acute process, PPM+ Assessment: 83y F w/pmhx of HTN, DM, Sick Sinus Syndrome s/p PPM 05/2019, Atrial fibrillation, HLD, CHF, GERD, CKD3 (baseline 1-1.4); she presents to ER 09/30 for lethargy x1 day. Daughter states she had weakness around 2018 , but awake, ER visit done but no findings noted. She was discharged home. Since then no fever/chills/cough. no abd pain/diarrhea. no chest pain/sob. no sick contacts. PO intake less. She comes yesterday for acute lethargy. Overnight worsened. CT brain without acute focal findings. EEG done by neuro and noted frontal discharges, suspected non-convulsive status, given ativan 2mg IV. She is sleeping, some response with painful stimuli only, but no resp distress, BP and HR stable. Being given keppra load. -Encephalopathy -Non-convulsive status epilepticus DM AFib SSS s/p PPM CKD3 Plan: Neuro- -EEG with frontal lobe discharges; s/p ativan -IV keppra load, cont keppra 1000mg q12h -CT brain negative -MRI brain -check ammonia level now -send off paraneoplastic panel -an LP would be an option but she is on anticoagulation with eliquis; will hold today -possible transfer to higher center for continuous eeg monitoring -no sepsis signs -Delirium prec; avoid BDZ CVS- -BP stable -Atrial paced -Afib; paced, rate controlled; hold eliquis; change to IV heparin 24-48 hours; may need LP -Maintain MAP>65 Resp- -RA, no distress, protecting airway, maintain asp prec, hob>30 -DNR, not DNI, trial of intubation -CXR 09/30 - no acitve process -Wean Fio2 to keep sat>92% -Bronchodilators PRN, Aspiration prec, Pulmonary Toilet ID- afebrile, wbc normal. nontoxic. no infection suspected given history -MRI brain pending GI- -NPO -check ammonia level -GI prophylaxis - h2b Renal- -CKD3, stable Cr, K okay, no acidosis -strict I/O, replete to keep K>4, Mg>2 -alonzo as indicated Heme- -anemia, stable hg -Hold AC, bridge to heparin next 24-48 hours Endo- Maintain BG<200, insulin protocol as needed. ISS Musculsk- pressure ulcer prophylaxis. Bedrest. Wounds- none Nutrition- NPO DVT prophylaxis: SCD; eliquis being held GI prophylaxis: h2b Central Line: no Arterial Line: no Alonzo Cathetor: yes Disposition: Admit to ICU; Expected LOS>2 midnights; Patient requires Critical Care/ICU for seizures Patient Clinical Status: guarded Code Status: DNR, not DNI, trial of intubation okay discussed plan and GOC with family Total Critical Care time is 45 minutes, excluding procedures/teaching Oscar Ren MD Assistant Professor Of Geography (Electronically Signed)
[2019-10-01 10:49] LABS: ALT 17 U/L (7-52); Albumin 3.1 g/dL (3.2-5.2); Albumin/Globulin Ratio 0.8 (1-3); Alkaline Phosphatase 181 U/L (34-104); BUN/Creatinine Ratio 32.9 (8-20); Blood Urea Nitrogen 46 mg/dL (6-24); CO2 Carbon Dioxide 19 mmol/L (22-32); Calcium 9.2 mg/dL (8.6-10.3); Chloride 111 mmol/L (101-111); Creatine Kinase 40 U/L (10-223); EGFR African American 43.3 (>60); EGFR Non-African American 35.8 (>60); Globulin 3.9 g/dL (2-4); Glucose 160 mg/dL (70-100); Sodium 140 mmol/L (135-145)
[2019-10-01 11:10] LABS: Anion Gap 10 mmol/L (2-11)
[2019-10-01 11:22] LABS: TSH (Thyroid Stimulating Horm) 1.25 mcIU/mL (0.34-5.60)
[2019-10-01 11:44] LABS: Potassium Redraw 4.1 mmol/L (3.5-5.0)
[2019-10-01] MEDS ORDERED: Dextrose 50% Syringe 50 ML* 25 GM/50 ML SYRINGE IV PUSH PRN (12:38)
[2019-10-01] MEDS ORDERED: Lorazepam PYXIS KEY PRN (12:57)
[2019-10-01] MEDS ORDERED: LORazepam INJ* 2 MG/ML 1 ML VIAL IV PUSH SCH (13:00)
[2019-10-01] MEDS ORDERED: RiFAXimin* 550 MG TAB PO SCH (13:00)
--- NOTE | 2019-10-01 13:43 | CONS ---
CONSULTATION REPORT: DATE OF CONSULT: 10/01/19 PATIENT OF: Dr. Ren. HISTORY OF PRESENT ILLNESS: This is an 83-year-old woman who I first saw at roughly 9:30 during her EEG and I have seen 3 other times since then for obtundation. Her history begins at least since end of August when she was seen for lethargy which was not as bad as currently and she had some leg weakness. Since then, she has had intermittent lethargy and weakness, and the lethargy has been worse within the past day or so and is worse today than yesterday. She has had no fever or infectious symptoms. She has had some lower extremity edema. There are no urinary problems, nausea, vomiting. She has had no history of cancer. PAST MEDICAL HISTORY: She has sick sinus syndrome, status post pacemaker placement; diabetes; hypertension; hyperlipidemia; arthritis; GERD; atrial flutter; atrial fibrillation. She has no history of liver problems. PAST SURGICAL HISTORY: Her only surgery is her pacemaker. HOME MEDICATIONS: Include: 1. Vitamin B12. 2. Metoprolol 12.5 daily. 3. Omeprazole 20 mg daily. 4. Lipitor 10 mg at bedtime. 5. Magnesium 800 mg daily. 6. Januvia 25 mg daily. 7. Eliquis 2.5 b.i.d. 8. Amiodarone 200 daily. 9. Lasix 20 mg b.i.d. 10. Ferrous sulfate 325 daily. ALLERGIES: She has no known drug allergies. FAMILY HISTORY: Father at 60 due to myocardial infarction and mother at 72. SOCIAL HISTORY: She lives at home with her daughter and uses a walker to ambulate. She does not smoke, drink, or use drugs. REVIEW OF SYSTEMS: Unobtainable other than through the family in terms of infectious symptoms. The patient was not talking. PHYSICAL EXAM: Temperature 96.5, pulse 60, respirations 19, blood pressure 121/ 62. She was obtunded. She was in a light coma and she did not open her eyes for me even to noxious stim on either side. She did move all extremities with semi- purposeful movements. Cranial nerves II through XII were nonfocal. Pupils were 2 and reactive. Facies appeared symmetric. Reflexes were 1 and trace ankle jerks. Toes were mute to downgoing. Chest: Clear. Cardiovascular : Irregular rate and rhythm. Abdomen was soft. DIAGNOSTIC STUDIES/LAB DATA: She had a CT scan that showed no acute pathology. I was called at 9:30 by the configuration technician because of the EEG, which showed both generalized and independent left and right hemispheric sharp and slow wave complexes that had a triphasic appearance with occurring bursts of a few seconds up to 6 seconds. Ativan was given during the tracing, which caused these discharges to stop and then background remained slow. She did not wake up following the Ativan. At that point, I had her transfer to the ICU and had labs including an ammonia level drawn. Her ammonia just came back at 223. She has a normal ALT, bilirubin of 1.9. Normal CPK. Normal TSH. BMP was normal other than a BUN of 46, creatinine of 1.4, glucose of 160, calcium was 9.2. Hemoglobin A1c was 7.7. Initial AST was 40. IMPRESSION AND PLAN: She has been loaded with Keppra and I have asked at 11 o' clock when it became clear that her sharp activity was coming back that she be transferred to [facility] and the hospitalists are working on this. The ammonia has come back now and we will be giving lactulose. I will give further Ativan doses as tolerated to see we can keep these discharges suppressed and I discussed with the family both at roughly 11 and again now that it would make sense for her to be monitored with video EEG and I have discussed the fact that she has liver disease now. I discussed with them that the MRI scanner is down at this point. If she is unable to be transferred because there are no beds available elsewhere, we will get an MRI scan when this is up. I had also sent off paraneoplastic antibodies, but I think at this point with her ammonia elevated, it is most likely hepatic encephalopathy possibly with superimposed seizures as well. Thank you for sharing her case. [id number]/[facility] #: [id number] BRYANT
--- NOTE | 2019-10-01 15:04 | ECHO ---
*[facility]* [place] [address] Fax #: [phone] Transthoracic Echocardiogram Patient: Tamika Meyers : 1935 Study Date: 10/01/2019 Age: 83 Gender: F HR: 120 bpm Height: 64 in /162.6 cm BSA: 1.9 m^2 Weight: 170.6 lb /77.6 kg BMI: 29.4 kg/m^2 *Cloth Cutter: * Sosa Whyte *Referring Physician: * Riya Escobedo *Reading Physician: * Micah Hernández MD Indications: Edema. History: Atrial flutter. Risk factors: Hypertension. Diabetes mellitus. Dyslipidemia. Conclusions Summary: - Left ventricle: Systolic function is at the lower limits of normal. The estimated ejection fraction is 50-55%. Low normal left ventricle funtion with subtle relative hypokineis of the anterior and anterolateral myocardium. - Right ventricle: The cavity size is dilated. Wall thickness is normal. Systolic function is mildly reduced. - Left atrium: The atrium is mildly dilated. - Mitral valve: There is moderate regurgitation. - Tricuspid valve: There is moderate-severe regurgitation. - Pulmonic valve: There is mild regurgitation. - Pulmonary arteries: Systolic pressure is moderately increased, estimated to be 48 mm Hg. Study data: Transthoracic echocardiogram. Procedure: Transthoracic echocardiography was performed. Image quality was good. Complete 2D, spectral Doppler, and color flow Doppler. Location: Bedside. Patient status: Inpatient. Patient room number: 450-02. No prior study is available for comparison. Findings Left ventricle: The cavity size is normal. Wall thickness is normal. Systolic function is at the lower limits of normal. The estimated ejection fraction is 50-55%. Regional wall motion abnormalities: of the anterior and anterolateral myocardium. Left ventricular diastolic function parameters are indeterminate. Right ventricle: The cavity size is dilated. Wall thickness is normal. Pacer wire noted in the right ventricle. Systolic function is mildly reduced. Systolic pressure is increased. Left atrium: The atrium is mildly dilated. Right atrium: The atrium is dilated. Pacer wire noted in right atrium. Mitral valve: Appears calcified. The leaflets are normal thickness. There is no evidence of stenosis. There is moderate regurgitation. Aortic valve: The valve is trileaflet. The leaflets are mildly calcified. Thickening, consistent with sclerosis. There is no evidence of stenosis. There is no significant regurgitation. Tricuspid valve: The leaflets are normal thickness. There is no evidence of stenosis. There is moderate-severe regurgitation. Hepatic rian flow reversal is present Pulmonic valve: The valve is structurally normal. There is no evidence of stenosis. There is mild regurgitation. Aorta: The aortic root appears normal. The aortic arch appears normal. Pericardium: A trace pericardial effusion is identified. Pulmonary arteries: Systolic pressure is moderately increased, estimated to be 48 mm Hg. Systemic veins: Inferior vena cava: The vessel is dilated. There is (< 50%) respiratory change in the IVC dimension. Pulmonary veins: The Pulmonary veins appear normal. Measurements Left ventricle Value Ref Aortic valve continued Value Ref TERRANCE, LAX 4.7 cm 3.8 - 5.2 VTI, S 36.6 cm ----- ESD, LAX 3.1 cm 2.2 - 3.5 Mean grad, S 5.9 mm Hg ----- FS, LAX 33 % 27 - 45 Peak grad, S 9.5 mm Hg ----- PW, ED, LAX (H) 1.0 cm 0.6 - 0.9 LVOT/AV, VTI ratio 0.65 ----- FS 33 % 27 - 45 OMAR, VTI 1.93 cm^2 ----- Mid-wall FS 15 % --------- OMAR, Vmax 1.82 cm^2 ----- PW, ED (H) 1.0 cm 0.6 - 0.9 PW/ID, ED 0.22 --------- Mitral valve Value Ref E', lat destini, TDI 12.6 cm/sec >=10.0 Peak E 1.15 m/sec ----- E/e', lat destini, TDI 9 --------- Peak A 0.35 m/sec --- -- Decel time 209 ms ----- LVOT Value Ref Peak grad, D 5.3 mm Hg ----- Diam, S 1.94 cm --------- Peak E/A ratio 3.31 ----- Area 3.0 cm^2 --------- MR peak v 4.97 m/sec ----- Peak bing, S 0.95 m/sec --------- ERO, PISA 0.22 cm^2 ----- VTI, S 23.9 cm --------- MR vol, PISA 40 ml ----- Peak grad, S 4 mm Hg --------- Mean grad, S 2 mm Hg --------- Pulmonic valve Value Ref Peak v, S 0.56 m/sec ----- Ventricular septum Value Ref Peak grad, S 1.3 mm Hg ----- IVS, ED (H) 1.0 cm 0.6 - 0.9 Tricuspid valve Value Ref Right ventricle Value Ref TR peak v (H) 3.09 m/sec <=2.8 TERRANCE, LAX 3.8 cm --------- Peak RV-RA grad, S 38 mm Hg ----- TERRANCE major ax, A4C (L) 4.6 cm 5.9 - 8.3 Aortic root Value Ref Left atrium Value Ref Root diam 2.6 cm <4.1 ML dim, A4C 4.1 cm --------- SI dim, A4C 5.5 cm --------- Ascending aorta Value Ref Vol, ES, 2-p 57 ml --------- AAo AP diam, S 4.4 cm ----- Vol/bsa, ES, 2-p 30 ml/m^2 16 - 34 Aortic arch Value Ref Right atrium Value Ref Arch diam 2.4 cm ----- SI dim, ES (H) 5.5 cm 3.4 - 5.3 ML dim, ES, A4C (H) 4.8 cm 2.6 - 4.4 Decending aorta Value Ref SI dim, ES, A4C (H) 5.5 cm 3.4 - 5.3 Benito peak bing 0.66 m/sec ----- Aortic valve Value Ref Inferior vena cava Value Ref Peak v, S 1.54 m/sec --------- Diam 3.2 cm ----- Legend: (L) and (H) trinity values outside specified reference range. Prepared and electronically signed by Micah Hernández MD 10/01/2019 15:04
--- NOTE | 2019-10-01 17:11 | DCNOTE ---
Subjective Date of Service: 10/01/19 Interval History: TRANSFER AND DISCHARGE SUMMARY This is an 83 year old female, lethargic and obtunded 2/2 status seizures and encephalopathy, unable to obtain ROS 2/2 level 5 caveat. Objective Active Medications: Amiodarone HCl (Cordarone Tab*) 200 mg PO DAILY [facility] Last Admin: 10/01/19 11:32 Dose: Not Given Ascorbic Acid (Vitamin C Tab*) 500 mg PO QAM [facility] Last Admin: 10/01/19 11:32 Dose: Not Given Atorvastatin Calcium (Lipitor*) 10 mg PO BEDTIME [facility] Cyanocobalamin (Vitamin B12 Tab*) 2,000 mcg PO DAILY [facility] Last Admin: 10/01/19 11:32 Dose: Not Given Dextrose (D50w Syringe 50 Ml*) 12.5 gm IV PUSH .FOR FS < 60 - SS PRN PRN Reason: FS < 60 Famotidine (Pepcid Iv*) 20 mg IV SLOW PU DAILY [facility] Ferrous Sulfate (Ferrous Sulfate Tab*) 325 mg PO DAILY [facility] Last Admin: 10/01/19 11:32 Dose: Not Given Furosemide (Lasix Iv*) 20 mg IV SLOW PU DAILY [facility] Levetiracetam (Keppra Iv Premix*) 1,000 mg in 100 mls @ 400 mls/hr IVPB Q12H [facility] Insulin Human Lispro (Humalog*) 0 units SUBCUT ACHS [facility]; Protocol Last Admin: 10/01/19 13:18 Dose: 2 units Lactulose (Lactulose*) 30 ml NG TUBE Q6H [facility] Last Admin: 10/01/19 14:50 Dose: 30 ml Lorazepam (Ativan Inj*) 1 mg IV PUSH Q4H [facility] Last Admin: 10/01/19 13:18 Dose: 1 mg Magnesium Oxide (Magox 400 Tab*) 800 mg PO DAILY [facility] Last Admin: 10/01/19 11:33 Dose: Not Given Metoprolol Succinate (Toprol Xl Tab*) 12.5 mg PO DAILY [facility] Last Admin: 10/01/19 11:33 Dose: Not Given Miscellaneous (Ativan Pyxis Clements) 1 ea N/A .ATIVAN IV CLEMENTS PRN PRN Reason: PYXIS CLEMENTS Pantoprazole Sodium (Protonix Tab*) 40 mg PO DAILY [facility] Last Admin: 10/01/19 11:33 Dose: Not Given Rifaximin (Xifaxan*) 550 mg PO BID [facility] Last Admin: 10/01/19 14:50 Dose: 550 mg Vital Signs - 8 hr 10/01/19 10/01/19 10/01/19 09:41 09:43 10:07 Temperature Pulse Rate 60 Respiratory 20 20 18 Rate Blood Pressure 121/62 (mmHg) O2 Sat by Pulse 98 Oximetry 10/01/19 10/01/19 10/01/19 10:27 10:30 11:00 Temperature 96.5 F Pulse Rate 60 60 60 Respiratory 19 20 18 Rate Blood Pressure 121/62 133/60 (mmHg) O2 Sat by Pulse 98 98 97 Oximetry 10/01/19 10/01/19 10/01/19 11:01 11:31 12:00 Temperature Pulse Rate 60 60 60 Respiratory 21 28 27 Rate Blood Pressure 135/60 125/63 (mmHg) O2 Sat by Pulse 97 96 96 Oximetry 10/01/19 10/01/19 10/01/19 12:01 12:31 13:00 Temperature Pulse Rate 60 60 60 Respiratory 35 23 18 Rate Blood Pressure 134/62 140/63 101/48 (mmHg) O2 Sat by Pulse 97 97 95 Oximetry 10/01/19 10/01/19 10/01/19 13:18 13:30 14:00 Temperature Pulse Rate 60 60 Respiratory 20 0 17 Rate Blood Pressure 125/53 124/63 (mmHg) O2 Sat by Pulse 95 96 Oximetry 10/01/19 10/01/19 10/01/19 14:30 15:00 15:01 Temperature Pulse Rate 60 60 60 Respiratory 17 Rate Blood Pressure 102/50 124/67 (mmHg) O2 Sat by Pulse 97 97 96 Oximetry 10/01/19 10/01/19 10/01/19 15:32 16:00 16:01 Temperature Pulse Rate 61 60 61 Respiratory 17 Rate Blood Pressure 135/63 129/68 (mmHg) O2 Sat by Pulse 96 97 97 Oximetry 10/01/19 16:31 Temperature Pulse Rate 60 Respiratory 19 Rate Blood Pressure 112/46 (mmHg) O2 Sat by Pulse 98 Oximetry Oxygen Devices in Use Now: Nasal Cannula Appearance: lethargic, non-responsive Eyes: No Scleral Icterus Ears/Nose/Mouth/Throat: - - dry oral mucosa Respiratory: Symmetrical Chest Expansion and Respiratory Effort, - - course breath sounds, bilateral crackles Cardiovascular: - - Paced, bilateral lower extremity +2 edema Abdominal: NL Sounds; No Tenderness; No Distention Extremities: No Clubbing, Cyanosis - mild erythema bilaterally with +2 pitting edema Skin: No Rash or Ulcers Neurological: - - lethargic, does not track Lines/Tubes/Other Access: Clean, Dry and Intact Naso-enteral Tube Nutrition: - - NPO Result Diagrams: 10/01/19 05:12 10/01/19 11:21 Microbiology and Other Data: Microbiology 10/01/19 04:10 Stool Occult Blood (NELSY) - Final Stool Diagnostic Imaging: Imaging: CT brain 09/30 - no acute findings CXR 09/30 - no acute process, PPM+ TT ECHO *[facility]* [place] [address] Fax #: [phone] Transthoracic Echocardiogram Patient: Tamika Meyers : 1935 Study Date: 10/01/2019 Age: 83 Gender: F HR: 120 bpm Height: 64 in /162.6 cm BSA: 1.9 m^2 Weight: 170.6 lb /77.6 kg BMI: 29.4 kg/m^2 *Flatwork Finisher: Sosa Carpenter *Referring Physician: * Riya Escobedo *Reading Physician: * Micah Hernández MD Indications: Edema. History: Atrial flutter. Risk factors: Hypertension. Diabetes mellitus. Dyslipidemia. Conclusions Summary: - Left ventricle: Systolic function is at the lower limits of normal. The estimated ejection fraction is 50-55%. Low normal left ventricle funtion with subtle relative hypokineis of the anterior and anterolateral myocardium. - Right ventricle: The cavity size is dilated. Wall thickness is normal. Systolic function is mildly reduced. - Left atrium: The atrium is mildly dilated. - Mitral valve: There is moderate regurgitation. - Tricuspid valve: There is moderate-severe regurgitation. - Pulmonic valve: There is mild regurgitation. - Pulmonary arteries: Systolic pressure is moderately increased, estimated to be 48 mm Hg. EKG Data: A-V Paced, rate 60 Assess/Plan/Problems-Billing Assessment: This is an 83y F w/pmhx of HTN, DM, Sick Sinus Syndrome s/p PPM 05/2019, Atrial fibrillation, HLD, CHF, GERD, CKD3 (baseline 1-1.4); that presented to [facility] ER on 09/30 for lethargy x1 day. Daughter states she had weakness around deangelo allison2018, but awake, ER visit done but no findings noted. She was discharged home. Since then no fever/chills/cough. no abd pain/diarrhea. no chest pain/ sob. no sick contacts. PO intake less. She then arrived 09/30/2019 for acute lethargy. Overnight worsened. CT brain without acute focal findings. EEG done by neuro and noted frontal discharges, suspected non-convulsive status, given ativan 2mg IV. She is sleeping, some response with painful stimuli only, but no resp distress, BP and HR stable. Being given keppra load. Of note, ammonia level is elevated, indicated etiology may be hepatic encephalopathy. - Patient Problems (1) Encephalopathy acute Code(s): G93.40 - ENCEPHALOPATHY, UNSPECIFIED SNOMED Code(s): 53641416 Comment: - Etiology 2/2 status seizures vs hepatic encephalopathy - Ammonia level 223, receiving lactulose protocol and rifaxamin - EEG with frontal lobe discharges; s/p ativan - IV keppra load, cont keppra 1000mg q12h - CT brain negative - Paraneoplastic panel pending - Neurology recommends continuous EEG monitoring, plan for transfer to [facility] (2) Atrial flutter Code(s): I48.92 - UNSPECIFIED ATRIAL FLUTTER SNOMED Code(s): 8946799 Comment: - Atrial paced, ECHO as above (3) CHF (congestive heart failure) Code(s): I50.9 - HEART FAILURE, UNSPECIFIED SNOMED Code(s): 23369561 Comment: - Hx of HF, continue lasix, risk for volume overload (4) DM2 (diabetes mellitus, type 2) Comment: - Lispro SS, accuchecks ACHS (5) HTN (hypertension) Code(s): I10 - ESSENTIAL (PRIMARY) HYPERTENSION SNOMED Code(s): 01485229 Comment: - Normotensive, holding home meds (6) CKD (chronic kidney disease) Code(s): N18.9 - CHRONIC KIDNEY DISEASE, UNSPECIFIED SNOMED Code(s): 162632020 Comment: - BUN/creat 46/1.40, avoid nephrotoxic meds (7) DNR (do not resuscitate) Comment: - MOLST updated Status and Disposition: Patient to be transferred via ALS to [facility] Neuro ICU service for continuous EEG monitoring for status seizures and encephalopathy. Family agreeable with plan. She is in Stable but guarded condition. Critical care Time: 50 minutes. Time of Transfer: 1748
[2019-10-01 18:18] VITALS: BP 117/47
--- NOTE | 2019-10-01 20:09 | EEG ---
ELECTROENCEPHALOGRAPHY: DATE OF STUDY: 10/01/19 - ROOM #ICU-04 PATIENT OF: Dr. Escobedo. CLINICAL PROBLEM: This is an 83-year-old woman being evaluated for obtundation with intermittent symptoms. This study was done to evaluate for possible seizures. MEDICATIONS: Include: 1. Amiodarone. 2. Humalog. 3. Eliquis. 4. Lasix. 5. Metoprolol. 6. Atorvastatin. 7. Protonix. 8. Magnesium. 9. B12. 10. Vitamin C. 11. Ferrous sulfate. 12. Ativan, a total of 2 mg was given during this tracing. REPORT: With the patient obtunded, background cerebral activity consisted of diffuse irregular delta and theta activity. Frequent sharp waves were noted appearing frontally, sometimes more on the right side than the left, sometimes more on the left side than the right, but with shifting and sometimes they occur synchronously, they last up to 6 seconds, but they are often shorter bursts with the frequency of 2 to 3 Hz. The sharp waves have a triphasic feeling to them. Ativan was given towards the end of this tracing and the sharp waves decreased and were specifically present during this time and the patient did not have a change in clinical state. This EEG is abnormal consistent with generalized encephalopathy. The sharp waves noted that occur in short but frequent bursts could be a sign of subclinical status or metabolic dysfunction. CLINICAL IMPRESSION: I discussed this EEG at bedside with the hospitalist at the time it was done. [id number]/[facility] #: [id number] MTDD
[2019-10-01] MEDS ORDERED: Atorvastatin* 10 MG TAB PO SCH (21:00)
[2019-10-01] MEDS ORDERED: levETIRAcetam 1000MG IVPREMIX* 1,000 MG/100 ML BAG IVPB SCH (23:00)
[2019-10-02] MEDS ORDERED: Famotidine IV* 10 MG/ML 2 ML (20 mg) IV SLOW PU SCH (09:00)
[2019-10-02] MEDS ORDERED: Furosemide IV* 10 MG/ML 2 ML VIAL (20 MG) IV SLOW PU SCH (09:00)
== END 2019-10-01 17:45 | disposition short-term general hospital (02) | DRG 71 ==
LOC: ED 20:09 → MEDTELE 10-01 00:11 → OBSVTOIN 10-01 00:11 → ICU 10-01 10:41
PROVIDERS: ADMIT Internal Medicine; ATTEND Internal Medicine
DX: G93.40 Encephalopathy, unspecified (principal); I48.92 Unspecified atrial flutter; I13.0 Hypertensive heart and chronic kidney disease with heart failure and stage 1 through stage 4 chronic kidney disease, or unspecified chronic kidney disease; E11.65 Type 2 diabetes mellitus with hyperglycemia; G40.901 Epilepsy, unspecified, not intractable, with status epilepticus; Z66 Do not resuscitate; I49.5 Sick sinus syndrome; I48.91 Unspecified atrial fibrillation; E78.5 Hyperlipidemia, unspecified; E11.22 Type 2 diabetes mellitus with diabetic chronic kidney disease; I08.1 Rheumatic disorders of both mitral and tricuspid valves; N18.3 Chronic kidney disease, stage 3 (moderate); I50.9 Heart failure, unspecified; K21.9 Gastro-esophageal reflux disease without esophagitis; R94.5 Abnormal results of liver function studies; M19.90 Unspecified osteoarthritis, unspecified site; Z95.0 Presence of cardiac pacemaker; Z79.01 Long term (current) use of anticoagulants; Z79.84 Long term (current) use of oral hypoglycemic drugs; Z79.899 Other long term (current) drug therapy; Z82.49 Family history of ischemic heart disease and other diseases of the circulatory system
CPT/HCPCS: 36415; 36600; 70450; 71045; 71046; 76705; 80048; 80053; 81003; 81015; 82140; 82270; 82550; 82803; 83036; 83519; 83520; 83605; 83735; 84443; 84484; 85025; 85652; 86255; 86256; 87040; 87086; 93005; 93306; 93970; 95813; 96374; 99285; A9270-GY; J1940; J1953; J2060